=== PATIENT | male | born 1930 | race Caucasian/White ===

== ENCOUNTER 2017-04-26 16:23 | Emergency (ER) | payer MEDICARE ==
[~2017-04-26] VITALS: Ht 185.4 cm; Wt 96.8 kg
[~2017-04-26 16:23] MED LIST: AMIO200T PO; LISI-567 PO; MECL-125 PO; TAMS0.4C29 PO; WARF2.5T82 PO
[2017-04-26 16:28] VITALS: BP 153/83; PULSE 73; RESP 20; O2SAT 94
--- NOTE | 2017-04-26 16:57 | ED.REPORT ---
HPI- Male Date of Service April 26, 2017 ED Provider: Frank Ball MD The patient is an 87 year old male with a medical history including aortic stenosis, vein thrombus, and atrial fibrillation s/p cardioversion and aortic valve replacement on Warfarin who presents to the ED with hematuria onset this morning. The patient's urine has been mostly clear, with drops of blood present after urination. He denies dysuria, fever, cough, abdominal pain, diarrhea, or other symptoms. The patient has experienced hematuria in the past associated with a UTI. Nursing Notes Stated Complaint: BLEEDING FROM PENIS Chief Complaint: Male Abdominal Pain Nursing Notes Reviewed: Yes Allergies: Coded Allergies: quinine (Verified Adverse Reaction, Mild, rash if med taken in excess, ) Scheduled Amiodarone (Amiodarone) 200 Mg Tablet 200 MG PO DAILY Lisinopril (Lisinopril) 20 Mg Tablet 40 MG PO DAILY Tamsulosin ER (Tamsulosin ER) 0.4 Mg Cap.er.24h 0.4 MG PO DAILY Warfarin Sodium (Warfarin Sodium) 2.5 Mg Tablet 2.5 MG PO DAILY Scheduled PRN Meclizine HCl (Meclizine HCl) 25 Mg Tab.chew 25 MG PO DAILY PRN PRN For Dizziness General Time Seen by MD: 16:56 Chief Complaint Blood in urine Hx Obtained From: Patient Arrived By: Walk-in Onset Occurred: 5 - 8 hours ago Symptom Duration: Intermittent Severity: Current: No pain currently Severity: Maximum: No pain Pertinent Negative: Relieved by nothing Recent Healthcare: No recent doctor visit Similar Sx Previous: Yes Past Medical History Past Medical History Aortic stenosis Right cephalic vein thrombus Right basilic vein thrombus Right internal jugular thrombus Atrial fibrillation s/p cardioversion Past Surgical History Aortic valve replacement Smoking History Former Smoker Review of Systems Constitutional: Denies: Fever GI: Denies: Abdominal pain, Diarrhea, Vomiting Male: Reports Hematuria, Denies Dysuria Complete sys rev & neg: except as marked. Respiratory: Denies: Non-productive cough, Shortness of breath Physical Exam Initial Vital Signs Vital Signs (First) Date Time Temp Pulse Resp B/P Pulse Ox O2 Delivery O2 Flow Rate FiO2 04/26/17 16:28 37.4 73 20 153/83 94 Initial VS: Reviewed Head / Eyes: Atraumatic, Normocephalic ENT: Conjunctiva normal, No scleral icterus Neck: Supple, Full range of motion Respiratory: Breath sounds normal, Clear to auscultation, No respiratory distress Cardiovascular: Regular rate & rhythm, Heart sounds normal Abdomen / GI: Soft, Non-tender Skin: Warm, Dry, No cyanosis Neurologic: Alert, Oriented, Nonfocal Psychiatric: Mood/affect normal, Behavior normal, Normal thought content Male Genitourinary: Atraumatic, Inspection NL, Penis NL (Circumcised), No penile discharge, No meatal blood, Testes NL General/Constitutional: Awake, Alert, No acute distress Lower Extremity / Pelvis / MS: Atraumatic, No deformity Mild peripheral edema Interpretation & Diagnostics Lab Results Interpretation Result Diagram: 04/26/17 1708 04/26/17 1708 Test 04/26/17 17:00 04/26/17 17:08 Urine Color Yellow (YELLOW) Urine Appearance Clear (CLEAR,HAZY) Urine pH 8.0 (5.0-8.0) Urine Specific [place] 1.010 (1.003-1.035) Urine Protein 100mg/dL (NEG,TRACE) Urine Glucose (UA) Negativemg/dL (NEGATIVE) Urine Ketones Negativemg/dL (NEGATIVE) Urine Occult Blood Large (NEGATIVE) Urine Nitrite Negative (NEGATIVE) Urine Bilirubin Negative (NEGATIVE) Urine Urobilinogen 1.0mg/dL (NORMAL) Urine Leukocyte Esterase Small (NEGATIVE) Urine RBC 3-10/hpf (0-2) Urine WBC 0-5/hpf (0-5) Urine Epithelial Cells Few/hpf (NONE-MOD) Urine Crystals None seen (NONE SEEN) Urine Bacteria Few/hpf (NONE-FEW) Urine Hyaline Casts None/lpf (NONE) Urine Granular Casts None seen (NONE SEEN) Urine Waxy Casts None seen (NONE SEEN) Urine Red Blood Cell Casts None seen (NONE SEEN) Urine White Blood Cell Casts None seen (NONE SEEN) Urine Mucus Present (None Seen) Urine Trichomonas None seen (NONE SEEN) Urine Yeast None (NONE SEEN) Urinalysis Comment None Urine Culture Reflexed Indicated White Blood Count 5.8th/mm3 (3.8-10.1) Red Blood Count 4.40mil/mm3 (4.40-5.80) Hemoglobin 13.9g/dL (13.8-17.2) Hematocrit 42.7% (41.0-50.0) Mean Corpuscular Volume 97.0fL (81-100) Mean Corpuscular Hemoglobin 31.6pg (27.0-35.0) Mean Corpuscular Hemoglobin Concent 32.6% (32.0-37.0) Red Cell Distribution Width 14.6% (12.3-15.4) Platelet Count 178bil/L (150-400) Neutrophils (%) (Auto) 59.5% (40-74) Lymphocytes (%) (Auto) 28.4% (14-46) Monocytes (%) (Auto) 9.7% (4-12) Eosinophils (%) (Auto) 1.9% (0-5) Basophils (%) (Auto) 0.3% (0-3) Prothrombin Time 19.8sec (8.1-12.5) Prothromb Time International Ratio 1.83ratio Sodium Level 136mEq/L (134-144) Potassium Level 4.4mEq/L (3.5-5.2) Chloride Level 103mEq/L (97-108) Carbon Dioxide Level 20mmol/L (18-29) Blood Urea Nitrogen 18mg/dL (8-27) Creatinine 0.96mg/dL (0.76-1.27) Estimat Glomerular Filtration Rate 79mL/min (>59) Glucose Level 109mg/dL (60-99) Calcium Level 9.0mg/dL (8.5-10.1) Re-Eval/Medical Decision Source of Hx: Old records Re-Evaluation/Progress : Time of Eval: 17:47 Patient Status: Condition improved Re-Evaluation/Progress Note: Discussed with patient lab results, diagnosis, and plan for discharge. Follow-up and return to the ER instructions given. Patient agrees with plan for care and all questions were addressed. Counseled Regarding: Diagnosis, Lab results, Need for follow-up, When/why to return to ED Discharge & Departure Impression: Primary Impression: Gross hematuria Disposition: Home Discharge Condition All VS Reviewed: Yes Condition: Improved Patient Instructions: Hematuria (ED) Additional Instructions: Thank you for entrusting us with your care. Your exam today was reassuring for any serious illness today. No evidence of urinary tract infection. Call the referral urologist on Thursday for a follow-up appointment. You may also call your primary care provider for follow-up as needed. Return to the ER with any new or worsening symptoms. Referrals: Woo Noe MD (PCP) Yaz Bello MD Attestation Portions of this note were transcribed by Lou Arriaga. I, Dr. Ball, personally performed the history, physical exam, and medical decision-making; I reviewed and confirmed the accuracy of the information in the transcribed note. Signed by: Manoj Boothe, 04/26/2017, 18:20 copies to: Yaz Bello MD; Woo Noe MD, Kirk H MD April 26, 2017 16:57 LOU ARRIAGA April 26, 2017 17:04 Frank Ball MD April 26, 2017 16:57 LOU ARRIAGA April 26, 2017 17:04
[2017-04-26 17:14] LABS: APPEARANCE,URINE CLEAR (CLEAR,HAZY); COLOR,URINE YELLOW (YELLOW); OCCULT BLOOD,URINE LARGE (NEGATIVE)
[2017-04-26 17:19] LABS: BASOPHILS % (AUTO) 0.3 % (0-3); EOSINOPHILS % (AUTO) 1.9 % (0-5); MONOCYTES % (AUTO) 9.7 % (4-12); Mean Corpuscular Hemoglobin 31.6 pg (27.0-35.0); NEUTROPHILS % (AUTO) 59.5 % (40-74); Platelet Count 178 bil/L (150-400)
[2017-04-26 17:37] LABS: INR 1.83 ratio
[2017-04-27] MEDS ORDERED: CEPH-512 PO (06:35)
[2017-04-27] MEDS ORDERED: WARF2.5T82 PO (10:59)
[2017-04-27] MEDS ORDERED: LOVA40TA PO (10:59)
[2017-04-27] MEDS ORDERED: CARV3.122 PO (10:59)
== END 2017-04-26 17:59 | disposition home or self-care (01) ==
LOC: SED 16:23
DX: R31.0 Gross hematuria (principal); Z87.891 Personal history of nicotine dependence; Z79.899 Other long term (current) drug therapy; Z88.8 Allergy status to other drugs, medicaments and biological substances

== ENCOUNTER 2017-04-27 04:37 | Emergency (ER) | payer MEDICARE ==
[~2017-04-27] VITALS: Ht 185.4 cm; Wt 96.8 kg
[2017-04-27 04:40] VITALS: BP 195/86; PULSE 63; RESP 18; O2SAT 96
[2017-04-27 04:57] VITALS: BP 179/85
--- NOTE | 2017-04-27 05:19 | ED.REPORT ---
HPI- Male Date of Service April 27, 2017 ED Provider: Moustapha Craig MD Patient is an 87 year old male on warfarin who presents to the ED complaining of hematuria.He reports that after voiding, blood drips out for 3-4 minutes. During the night last night, blood leaked from his penis, covering his clothes and mattress. Associated symptoms include lightheadedness. He denies dysuria, fever, chills, or urinary retention. Patient reports that in the morning, it is difficult for him to start urinating. He was seen last night for the same symptoms. Nursing Notes Stated Complaint: BLOOD IN URINE Chief Complaint: Male Abdominal Pain Nursing Notes Reviewed: Yes Allergies: Coded Allergies: No Known Allergies (Unverified , 04/27/17) Scheduled Amiodarone (Amiodarone) 200 Mg Tablet 200 MG PO DAILY Lisinopril (Lisinopril) 20 Mg Tablet 40 MG PO DAILY Tamsulosin ER (Tamsulosin ER) 0.4 Mg Cap.er.24h 0.4 MG PO DAILY Warfarin Sodium (Warfarin Sodium) 2.5 Mg Tablet 2.5 MG PO DAILY Scheduled PRN Meclizine HCl (Meclizine HCl) 25 Mg Tab.chew 25 MG PO DAILY PRN PRN For Dizziness General Time Seen by MD: 04:54 Chief Complaint Blood in urine Hx Obtained From: Patient Arrived By: Walk-in Onset Occurred: Yesterday Recent Healthcare: Recent doctor visit Similar Sx Previous: Yes Past Medical History Past Medical History Aortic stenosis Right cephalic vein thrombus Right basilic vein thrombus Right internal jugular thrombus Atrial fibrillation s/p cardioversion Reports: Hypertension Past Surgical History Aortic valve replacement Smoking History Former Smoker Social History Other Social History: Local resident Ambulatory Status Independent Review of Systems Constitutional: Denies: Chills, Fever Male: Reports Hematuria, Denies Dysuria, Denies Urination decreased Complete sys rev & neg: except as marked. Neurologic: Reports: Lightheaded Physical Exam Initial Vital Signs Vital Signs (First) Date Time Temp Pulse Resp B/P Pulse Ox O2 Delivery O2 Flow Rate FiO2 04/27/17 04:40 36.8 63 18 195/86 96 Room Air Initial VS: Reviewed, Vital signs abnormal Head / Eyes: Atraumatic, Normocephalic Neck: Full range of motion Cardiovascular: Regular rate & rhythm, Heart sounds normal Abdomen / GI: Soft, Non-tender Skin: Warm, Dry Neurologic: Alert, Oriented, Nonfocal Psychiatric: Mood/affect normal, Behavior normal, Normal thought content Male Genitourinary: Atraumatic exam deferred General/Constitutional: Awake, Alert, Well developed bloody clothes Respiratory / Chest: Breath sounds NL, Breath sounds = bilat, No respiratory distress Re-Eval/Medical Decision Med Decision/Clinical Course 87-year-old male with no significant prostate or urinary tract history presents with gross hematuria. He was evaluated here yesterday for same. Since then he has continued to bleed dark red blood from his penis. Initial evaluation was ordered by me and his care is now being turned over at change of shift Dr. Gloria Burgos. Discharge & Departure Shift Change Sign-Out Patient Care Transferred: Yes Discussed Complaint(s): Yes Transfer of care to Dr. Jaquez at 0600. Impression: Primary Impression: Gross hematuria Referrals: Ward Avila MD (PCP) Care Transferred to: Dr. Jaquez Care Transferred at: 06:00 Scribe Attestation Portions of this note were transcribed by Lionel Aquino. I, Dr. Craig personally performed the history, physical exam and medical decision-making; I reviewed and confirmed the accuracy of the information in the transcribed note. Signed by: Lionel Aquino 04/27/17, 0542 copies to: Ward Avila MD, Howard L MD April 27, 2017 05:19 LIONEL AQUINO April 27, 2017 05:30
[2017-04-27] MEDS ORDERED: 0.9% Sodium Chloride 1,000 ML IV ONE (05:31)
[2017-04-27 06:05] LABS: APPEARANCE,URINE CLOUDY (CLEAR,HAZY); COLOR,URINE YELLOW (YELLOW); OCCULT BLOOD,URINE LARGE (NEGATIVE)
[2017-04-27 06:10] LABS: BASOPHILS % (AUTO) 0.2 % (0-3); EOSINOPHILS % (AUTO) 1.2 % (0-5); MONOCYTES % (AUTO) 6.8 % (4-12); Mean Corpuscular Hemoglobin 31.3 pg (27.0-35.0); Mean Corpuscular Volume 96.8 fL (81-100); NEUTROPHILS % (AUTO) 65.1 % (40-74); Platelet Count 180 bil/L (150-400)
[2017-04-27 06:20] LABS: INR 1.7 ratio
[2017-04-27 06:25] LABS: Magnesium 2.1 mg/dL (1.6-2.6)
[2017-04-27] MEDS ORDERED: CEPH-512 PO (06:35)
[2017-04-27 06:51] VITALS: BP 165/83; PULSE 61; RESP 16; O2SAT 95
[2017-04-27] MEDS ORDERED: WARF2.5T82 PO (10:59)
[2017-04-27] MEDS ORDERED: CARV3.122 PO (10:59)
[2017-04-27] MEDS ORDERED: LOVA40TA PO (10:59)
== END 2017-04-27 06:51 | disposition home or self-care (01) ==
LOC: SED 04:37
DX: R31.0 Gross hematuria (principal); R42 Dizziness and giddiness; N39.0 Urinary tract infection, site not specified; I48.91 Unspecified atrial fibrillation; I10 Essential (primary) hypertension; Z79.01 Long term (current) use of anticoagulants; Z87.891 Personal history of nicotine dependence
CPT/HCPCS: 36415; 80053; 81000; 81002; 83735; 85025; 85610; 87086; 87088; 94799; 96360; 99284; J7030

== ENCOUNTER 2017-04-27 09:16 | Inpatient (IN) | payer MEDICARE ==
[~2017-04-27] VITALS: Ht 185.4 cm; Wt 96.0 kg
[~2017-04-27 09:16] MED LIST changes: +CEPH-512 PO
[2017-04-27] MEDS ORDERED: 0.9% Sodium Chloride 1,000 ML IV ONE ×3 (09:19→11:20)
[2017-04-27 09:20] VITALS: BP 113/59; PULSE 89; RESP 37; O2SAT 89
--- NOTE | 2017-04-27 09:23 | ED.REPORT ---
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 Pt was discharged from the ED 1 hr previously for painless hematuria. Pt reports that he got home and began, "feeling tight all over." He sat down and began experiencing diffuse shaking, weakness, and lower abdominal pain located over his bladder. Medics report that upon arrival he was shaking, cyanotic around the lips, pale, and very chilled. He denies back pain and chest pain. He has trouble breathing chronically but this is more then usual. Pt is DNR/DNI. Nursing Notes Stated Complaint: SHALLOW BREATHING Chief Complaint: Respiratory Distress Nursing Notes Reviewed: Yes Allergies: Coded Allergies: No Known Allergies (Unverified , 04/27/17) Scheduled Carvedilol (Carvedilol) 3.125 Mg Tablet 3.125 MG PO BID Cephalexin (Keflex) 500 Mg Capsule 500 MG PO QID Lisinopril (Lisinopril) 20 Mg Tablet 20 MG PO DAILY Lovastatin (Lovastatin) 40 Mg Tablet 40 MG PO HS Tamsulosin ER (Tamsulosin ER) 0.4 Mg Cap.er.24h 0.8 MG PO DAILY Warfarin Sodium (Warfarin Sodium) 2.5 Mg Tablet 2.5 MG PO Salazar,Mo,We,Fri, Sa Warfarin Sodium (Warfarin Sodium) 2.5 Mg Tablet 1.25 MG PO Tue, Thr General Time Seen by MD: 09:17 Chief Complaint Breathing problem Hx Obtained From: Patient Arrived By: Ambulance Sudden in Onset?: Yes Onset Occurred: Just prior to arrival Symptom Duration: Since onset Location: : Abdomen Quality: Painful Severity: Current: Mild Recent Healthcare: Recent doctor visit Similar Sx Previous: Yes Past Medical History Past Medical History Aortic stenosis Right cephalic vein thrombus Right basilic vein thrombus Right internal jugular thrombus Atrial fibrillation s/p cardioversion DVT Reports: Hypertension Past Surgical History Aortic valve replacement Smoking History Former Smoker Social History Other Social History: Local resident Ambulatory Status Independent Review of Systems cyanotic around the lips Full Review of Systems Constitutional: Reports: Chills Respiratory: Reports: Shortness of breath Cardiovascular: Denies: Chest pain GI: Reports: Abdominal pain Musculoskeletal: Denies: Back pain Neurologic: Reports: Shaking, Weakness, Denies: Change LOC, Dizziness, Headache Complete sys rev & neg: except as marked. Physical Exam Vital Signs Vital Signs Date Time Temp Pulse Resp B/P Pulse Ox O2 Delivery O2 Flow Rate FiO2 04/27/17 10:21 98 21 87/53 93 Simple Mask 6 04/27/17 09:20 39.4 89 37 113/59 89 Room Air reviewed Initial VS: Reviewed General/Constitutional: Awake, Cooperative Distress / Hydration: Positive: Distress moderate Appearance / Presentation: Positive: Pale febrile hypoxic Head / Eyes: Normocephalic, PERRL Neck: Supple, Full range of motion Respiratory / Chest: Atraumatic, Breath sounds NL, Breath sounds = bilat, No respiratory distress Cardiovascular: Heart rate NL, Regular rhythm, Heart sounds NL Abdomen: Soft, Non-tender Bowel Sounds / Distention: Positive: Distention mild Back: No CVA tenderness Upper Extremities Upper Extremity / MS: Full range of motion, No swelling, No deformity Lower Extremity / Pelvis / MS: No edema 2+ post-tibial pulses Skin: Warm, Dry Interpretation & Diagnostics Interpretation & Diagnostics: ANGIOGRAPHY CT IMPRESSION: 1. Small subsegmental pulmonary embolus within the right lower lobe. 2. Right upper lobe nodule; followup is recommended as below. 3. Remote granulomatous disease. 4. Nonobstructing right superior pole nephroliths. 5. Small hiatal hernia. 6. No change in severe T10 compression fracture. 7. Findings discussed with Dr. Jaquez on 04.27.17 at 1012 hrs. Dictated by: Humza Harris M.D. on 04/27/2017 at 10:03 Approved by: Humza Harris M.D. on 04/27/2017 at 10:13 Lab Results Interpretation Result Diagram: 04/27/17 0920 04/27/17 0920 Test 04/27/17 09:20 04/27/17 10:00 White Blood Count 2.0th/mm3 (3.8-10.1) Red Blood Count 4.88mil/mm3 (4.40-5.80) Hemoglobin 15.5g/dL (13.8-17.2) Hematocrit 47.7% (41.0-50.0) Mean Corpuscular Volume 97.7fL (81-100) Mean Corpuscular Hemoglobin 31.8pg (27.0-35.0) Mean Corpuscular Hemoglobin Concent 32.5% (32.0-37.0) Red Cell Distribution Width 14.6% (12.3-15.4) Platelet Count 186bil/L (150-400) Neutrophils (%) (Auto) 78.9% (40-74) Lymphocytes (%) (Auto) 19.1% (14-46) Monocytes (%) (Auto) 1.0% (4-12) Eosinophils (%) (Auto) 1.0% (0-5) Basophils (%) (Auto) 0% (0-3) Prothrombin Time 18.9sec (8.1-12.5) Prothromb Time International Ratio 1.75ratio Sodium Level 140mEq/L (134-144) Potassium Level 4.6mEq/L (3.5-5.2) Chloride Level 101mEq/L (97-108) Carbon Dioxide Level 17mmol/L (18-29) Blood Urea Nitrogen 14mg/dL (8-27) Creatinine 0.95mg/dL (0.76-1.27) Estimat Glomerular Filtration Rate 80mL/min (>59) Glucose Level 120mg/dL (60-99) Calcium Level 8.9mg/dL (8.5-10.1) Magnesium Level 1.8mg/dL (1.6-2.6) Total Bilirubin 1.1mg/dL (0.0-1.2) Aspartate Amino Transf (AST/SGOT) 22U/L (0-50) Alanine Aminotransferase (ALT/SGPT) 14U/L (0-44) Alkaline Phosphatase 117U/L (25-160) Troponin T 0.010ug/L (0.0-0.011) Pro-B-Type Natriuretic Peptide 449.6pg/mL (0-486) Total Protein 7.6g/dL (6.4-8.4) Albumin 4.3g/dL (3.4-5.0) Procalcitonin 0.10ng/mL (0.00-0.08) Urine Color Red (YELLOW) Urine Appearance Cloudy (CLEAR,HAZY) Urine pH 8.0 (5.0-8.0) Urine Specific [place] 1.013 (1.003-1.035) Urine Protein 30mg/dL (NEG,TRACE) Urine Glucose (UA) Negativemg/dL (NEGATIVE) Urine Ketones Negativemg/dL (NEGATIVE) Urine Occult Blood Large (NEGATIVE) Urine Nitrite Positive (NEGATIVE) Urine Bilirubin Negative (NEGATIVE) Urine Urobilinogen Normalmg/dL (NORMAL) Urine Leukocyte Esterase Negative (NEGATIVE) Urine RBC Packed/hpf (0-2) Urine WBC 0-5/hpf (0-5) Urine Epithelial Cells Few/hpf (NONE-MOD) Urine Crystals None seen (NONE SEEN) Urine Bacteria Few/hpf (NONE-FEW) Urine Hyaline Casts None/lpf (NONE) Urine Granular Casts None seen (NONE SEEN) Urine Waxy Casts None seen (NONE SEEN) Urine Red Blood Cell Casts None seen (NONE SEEN) Urine White Blood Cell Casts None seen (NONE SEEN) Urine Mucus None seen (None Seen) Urine Trichomonas None seen (NONE SEEN) Urine Yeast None (NONE SEEN) Urinalysis Comment None Urine Culture Reflexed Indicated ECG Interpretation ECG Interpretation: 1st degree AV block non-specific ST changes Time: 09:26 Interpreted by: ED physician Normal ECG Interpretation: Normal sinus rhythm (rate 91) CT Abd / Pelvis Interpretation IMPRESSION: 1. Cystitis. 2. Multiple urinary bladder diverticula, some of which contain calcifications. 3. Nonobstructing right superior pole nephrolith. 4. Remote granulomatous disease. 5. New small hiatal hernia. 6. Slight increase in size of infrarenal abdominal aortic aneurysm. 7. Normal appendix. 8. No change in severe T10 compression fracture. 9. 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 10. Findings discussed with Dr. Jaquez on 04.27.17 at 1011 hrs. Dictated by: Humza Harris M.D. on 04/27/2017 at 10:13 Approved by: Humza Harris M.D. on 04/27/2017 at 10:18 Study type: Abdominal CT no contrast Interpretation / Wet Read by: Interpret - Radiologist Re-Eval/Medical Decision Med Decision/Clinical Course Patient arrives hypoxic and with other septic parameters. His hypoxia seems disproportionate to his previous presentation a few hours ago. For this reason CT chest abdomen pelvis is obtained, which shows a right lower lobe pulmonary embolism, this is briefly discussed with cardiology who recommends starting and continuing IV heparin. Patient's elevated lactic acidosis low white blood cell count and vital sign abnormalities appear to represent sepsis. IV Zosyn was given for a genitourinary etiology. There is no obvious obstructing stone. He will be admitted. He was placed on IV norepinephrine in order to maintain adequate blood pressure. Time of Eval: 09:50 Re-Evaluation/Progress Note: Pt rechecked. The pt was standing up to urinate, and had an episode of hematuria. He also became extremey weak and needed assistance getting back to the bed. Time of Eval: 10:14 Re-Evaluation/Progress Note: Pt rechecked. He is hypotensive, placed in supine position. Discussion with patient's family. Informed them of right lower lobe PE, aneurysm, and need for admission. Plan to start treating infection with antibiotics. Time of Eval: 10:51 Re-Evaluation/Progress Note: Pt rechecked. Informed family and pt of plan for epinephrin and heparin drip. Pt will be admitted to ICU. Consultation #1: Referral / Consult Name: Humza Harris MD Call Returned at: 10:12 Note: Case discussed with radiology. Dr. Humza Harris confirms a small PE in RLL. Pt also has urinary bladder cystitis. Consultation #2: Referral / Consult Name: Marleny Carias MD Consulted With: Cardiology Call Returned at: 10:39 Material Control Specialist: Agrees with eval, Agrees with plan Note: Case discussed. Consultation #3: Referral / Consult Name: Remy Foss MD Call Returned at: 10:45 Material Control Specialist: Agrees with eval, Agrees with plan Note: Case discussed. Counseled Regarding: Diagnosis, Lab results, Need for admission Discharge & Departure Primary Impression: Pulmonary embolism Pulmonary embolism type: septic Chronicity: unspecified Additional Impressions: Urinary tract infection Urinary tract infection type: site unspecified Hematuria presence: with hematuria Qualified Code: N39.0 - Urinary tract infection, site not specified Cystitis Nephrolithiasis Disposition: ADMITTED TO HOSPITAL Discharge Condition All VS Reviewed: Yes Condition: Stable Referrals: Ward Avila MD (PCP) Crit Care Except Billable Proc Time Spent: 75-104 minutes Services Performed: Patient management by me, Time spent at bedside, Reviewing test results, Reviewing imaging, Discussing patient care, Documentation in record, Time with fam/surrogate Critical Care Notes: See MDM Scribe Attestation Portion of this note were transcribed by Geno Taylor. I, Dr. Jaquez, personally performed the history, physical exam, and medical decision-making: I reviewed and confirmed the accuracy for the information in the transcribed note. Signed by: rajan Raphael, 04/27/17 1200 copies to: Ward Avila MD, Timothy S DO April 27, 2017 09:23 Geno Taylor April 27, 2017 09:36
[2017-04-27 09:36] LABS: BASOPHILS % (AUTO) 0 % (0-3); Mean Corpuscular Hemoglobin 31.8 pg (27.0-35.0); Mean Corpuscular Volume 97.7 fL (81-100); NEUTROPHILS % (AUTO) 78.9 % (40-74); Platelet Count 186 bil/L (150-400)
[2017-04-27 09:50] LABS: INR 1.75 ratio
[2017-04-27 10:07] LABS: TROPONIN T 0.01 ug/L (0.0-0.011)
[2017-04-27] MEDS ORDERED: 0.9% Sodium Chloride 500 ML IV ONE ×2 (10:10→10:20)
[2017-04-27] MEDS: 0.9% Sodium Chloride 1,000 ML IV SCH ×4 (10:10→22:10)
--- NOTE | 2017-04-27 10:14 | DRSVH ---
PROCEDURE: CT ANGIO CHEST PULMONARY EMBOLISM ([id number]) INDICATIONS: hypoxia TECHNIQUE: After the administration of intravenous contrast, 2 mm thick sections acquired from the pulmonary api maico to the posterior costophrenic angles. 3-dimensional maximum intensity projection (MIP) coronal a nd sagittal reformats were then acquired through the thorax. For radiation dose reduction, the follo wing was used: automated exposure control, adjustment of mA and/or kV according to patient size. COMPARISON: [facility], CT, CT ABD PELVIS W CON, 04/27/2017, 9:36. [facility] l, CT, CHEST WITH CONTRAST, 04/18/2012, 12:53. FINDINGS: Image quality: Excellent. Pulmonary arteries: Pulmonary arteries are normal in size. There is a small filling defect seen with in a subsegmental pulmonary artery branch within the right lower lobe superior segment. Lungs and pleura: No evidence of pneumonia, nor edema. Mild apical predominant emphysema. Mild depend ent bilateral upper and lower lobe atelectasis. New ill-defined nodular density within the right uppe r lobe anteriorly measuring 9 mm. Calcified granuloma within the left upper lobe anteriorly. No pleur al effusions or pneumothorax. Central and peripheral airways are patent. Mediastinum: Heart size is normal, without pericardial effusion. There is calcification of the coron jose vasculature. No mediastinal or hilar adenopathy. Thoracic aorta is normal in caliber and enhance ment. Esophagus is normal in caliber. There is a new small hiatal hernia. Bones and chest wall: Median sternotomy. No suspicious bony lesions. There is severe compression of the T10 vertebral body, as before. Mild compression of the T7 and T8 vertebral bodies. Moderate to se [place] thoracic kyphosis. Thyroid gland is within normal limits. No axillary or supraclavicular adenop athy. Abdomen: Visualized portions of the upper abdomen demonstrate small nonobstructing right superior po le nephroliths, splenic granulomata, as well as a 28 mm diameter low-density focus within the right h epatic lobe posteriorly, which is unchanged. IMPRESSION: 1. Small subsegmental pulmonary embolus within the right lower lobe. 2. Right upper lobe nodule; followup is recommended as below. 3. Remote granulomatous disease. 4. Nonobstructing right superior pole nephroliths. 5. Small hiatal hernia. 6. No change in severe T10 compression fracture. 7. Findings discussed with Dr. Jaquez on 04.27.17 at 1012 hrs. Dictated by: Humza Harris M.D. on 04/27/2017 at 10:03 Approved by: Humza Harris M.D. on 04/27/2017 at 10:13
[2017-04-27 10:18] LABS: Magnesium 1.8 mg/dL (1.6-2.6)
--- NOTE | 2017-04-27 10:19 | DRSVH ---
PROCEDURE: CT ABDOMEN AND PELVIS WITH CONTRAST ([id number]) INDICATIONS: hematuria TECHNIQUE: After the administration of intravenous contrast, 5 mm thick sections acquired from the diaphragm to the symphysis. 5 mm coronal and sagittal reformats were acquired. For radiation dose reduction, the following was used: automated exposure control, adjustment of mA and/or kV according to patient angela dubon. COMPARISON: [facility], CT, KUB - CT ([facility]), 02/07/2014, 7:55. FINDINGS: Image quality: Excellent. ABDOMEN: Lung bases: Lung bases are clear. Heart size is normal. Solid organs: Liver and spleen are normal in size. Multiple splenic calcifications are present. Scat tered hypodense hepatic lesions are unchanged. Gallbladder is within normal limits. Biliary system i s non dilated. Pancreas enhances normally. No adrenal nodules. Kidneys demonstrate normal size and enhancement, without hydronephrosis. Nonobstructing 3 mm diameter calculus within the superior pole right kidney. Peritoneum and bowel: A new small hiatal hernia is present. Bowel loops demonstrate normal wall thic kness and caliber. No free fluid or air normal appendix.. Nodes and vessels: No retroperitoneal or mesenteric adenopathy by size criteria. Slight increase in infrarenal abdominal aortic aneurysm, currently measuring 44 mm diameter. The Miscellaneous: No ventral hernias. PELVIS: Genitourinary: The urinary bladder wall is diffusely thickened. Multiple urinary bladder diverticula are present, largest of which is in the right posterior paramedian urinary bladder, measuring 34 mm d iameter. There is a 26 mm diameter diverticulum involving the right posterior urinary bladder, which contains multiple dependent calcifications. Multiple smaller calcifications are present within the ur inary bladder posteriorly. Miscellaneous: No inguinal hernias or adenopathy. Bones: No suspicious bony lesions. No change in severe T10 compression fracture. 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 No change in mild L5 wedging. A No acute vertebral body co mpression fractures. IMPRESSION: 1. Cystitis. 2. Multiple urinary bladder diverticula, some of which contain calcifications. 3. Nonobstructing right superior pole nephrolith. 4. Remote granulomatous disease. 5. New small hiatal hernia. 6. Slight increase in size of infrarenal abdominal aortic aneurysm. 7. Normal appendix. 8. No change in severe T10 compression fracture. 9. 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 10. Findings discussed with Dr. Jaquez on 17 at 1011 hrs. Dictated by: Humza Harris M.D. on 04/27/2017 at 10:13 Approved by: Humza Harris M.D. on 04/27/2017 at 10:18
[2017-04-27 10:21] VITALS: BP 87/53; PULSE 98; RESP 21; O2SAT 93
[2017-04-27] MEDS ORDERED: Piperacillin-Tazo 3.375 Gm Inj 3.375 GM in Dextrose 5% Minibag Plus 50 ML IV ONE (10:25)
[2017-04-27] MEDS ORDERED: Heparin 25K Unit/500mL 0.45 NS 25,000 UNIT in IV Premix 1 EACH IV SCH ×2 (10:40→15:50)
[2017-04-27] MEDS ORDERED: Sodium Chloride LOK Flush 10 mL Syringe IVFLUSH PRN ×4 (10:40→15:20)
[2017-04-27] MEDS ORDERED: Heparin 5,000 Unit/mL Inj IVPUSH PRN (10:40)
[2017-04-27] MEDS ORDERED: Norepineph 8,000 mCg/250 mL NS 8,000 MCG in IV Premix 1 EACH IV SCH (10:40)
[2017-04-27] MEDS ORDERED: LOVA40TA PO (10:59)
[2017-04-27] MEDS ORDERED: WARF2.5T82 PO (10:59)
[2017-04-27] MEDS ORDERED: CARV3.122 PO (10:59)
[2017-04-27] MEDS ORDERED: Heparin 5,000 Unit/mL Inj IVPUSH ONE (11:00)
[2017-04-27] MEDS ORDERED: Norepineph 8,000 mCg/250 mL NS 8,000 MCG in IV Premix 1 EACH IV PRN (11:05)
[2017-04-27] MEDS ORDERED: Ondansetron 2 mg/mL 2 mL Inj IVPUSH PRN (11:05)
[2017-04-27 11:15] VITALS: BP 94/58; PULSE 83; RESP 30; O2SAT 99
[2017-04-27 11:40] LABS: APPEARANCE,URINE CLOUDY (CLEAR,HAZY); COLOR,URINE RED (YELLOW)
[2017-04-27 11:41] LABS: OCCULT BLOOD,URINE LARGE (NEGATIVE); UROBILINOGEN,URINE NORMAL (NORMAL)
[2017-04-27] MEDS ORDERED: fentaNYL-PF 50 mCg/mL 2 mL Inj IVPUSH ONE (12:05)
--- NOTE | 2017-04-27 12:10 | ABG ---
DateTimeAnalyzed 12:04:00 -_ pH ____7.470 - 7.350 7.450 pCO2 ___24.6__ -mmHg 35.0 45.0 pO2 ___67.5__ -mmHg 69.0 116 HCO3- ___17.7__ -mmol/L 22.0 26.0 ABE ___-4.2__ -mmol/L -2.0 2.0 tHb ___12.0__ -g/dL O2Hb ___93.3__ -% COHb ____1.3__ -% MetHb ____1.2__ -% sO2 ___95.7__ -% 25.0 FIO2 ___50.0__ -% Drawn By jmw - Date/Time Notified____ 12:09:00 -_ Liter_Flow ____7.0__ -L/min Oxygen Device 1 __OXYMASK - Notified By jmw - Notified Whom DR YANCHUK - B 758 -mmHg tO2 ___15.7__ -Vol% Cristiano test _Positive -
[2017-04-27 12:15] VITALS: BP 91/48; PULSE 88; RESP 20; O2SAT 97
--- NOTE | 2017-04-27 12:59 | NUR ---
Pt arrived in CCU at approx 1215hrs from ER Pt was hypotensive on arrival with sys BP 76, but this came up quickly and he has been in the 90's systolic since then. Norepi is infusing at .05mcg/kg/hr. NS wide open this is the 3rd liter. Pt also has heparin running on DVT protocol. Pt has oxymask at 7l and sats 100%. This has since been dropped to 5l and sats are 97%. He denies shortness of breath or cough. Pt used the urinal prior to starting CVL placement for 100cc of bloody red urine. He had trouble starting the flow of urine and also difficulty voiding, starting and stopping. Approx 20 mins later he complained he had a full bladder and MD ordered gautam placed. He did have blood coming out of his urethra approx 2cc when I cleaned the area and after gautam was placed without difficulty or resisitance, he drained 1000cc of clear urine. He stated he felt much better.
--- NOTE | 2017-04-27 13:43 | DRSVH ---
PROCEDURE: X-RAY CHEST ONE VIEW, PORTABLE ([id number]) INDICATIONS: CENTRAL LINE PLACEMENT TECHNIQUE: One view of the chest was acquired. COMPARISON: [facility], CR, XR CHEST 2VW, 10/10/2016, 8:44. FINDINGS: Surgical changes and devices: Median sternotomy. A catheter projects over the right supraclavicular r egion, but the tip is directed superiorly beyond the level of the film. Lungs and pleura: No pleural effusions or pneumothorax. Mild bibasilar airspace opacity. Mediastinum: Mediastinal contours appear normal. Heart size is normal. Bones and chest wall: No suspicious bony lesions. Overlying soft tissues appear unremarkable. IMPRESSION: 1. Catheter within the right supraclavicular region, tip of which is directed superiorly, presumably within the right internal jugular vein. 2. Bibasilar atelectasis versus pneumonia. Dictated by: Humza Harris M.D. on 04/27/2017 at 13:40 Approved by: Humza Harris M.D. on 04/27/2017 at 13:41
--- NOTE | 2017-04-27 13:53 | DRSVH ---
PROCEDURE: Central line placement under fluoroscopic guidance INDICATIONS: hypotensive COMPARISON: None. FINDINGS: Central catheter was placed by referring clinical staff from the right side. IMPRESSION: Tip of central line lies within the lower SVC. Dictated by: Humza Harris M.D. on 04/27/2017 at 13:50 Approved by: Humza Harris M.D. on 04/27/2017 at 13:51
--- NOTE | 2017-04-27 14:42 | PCM.HPSURG ---
Subjective Date of Service: April 27, 2017 Referring Provider: Admitting Physician: Remy Foss MD Primary Care Physician: Ward Avila MD Attending Physician: Reym Foss MD Chief Complaint Consult for gross hematuria History of Present Illness Mr Gu is an 87 M admitted with UTI. He states his problems began about 3 days ago when he started feeling unwell. Then he noticed it was difficult to urinate. He experienced gross hematuria this morning. He states this has happened to him in the past, but at present, he notes it was years ago. UA appears + for UTI. CT scan demonstrates multiple small bladder diverticuli. Allergy Allergies: Coded Allergies: No Known Allergies (Unverified , 04/27/17) Social History Hx Alcohol Use: No Hx Substance Use: No Hx Tobacco Use: Yes PMH HEENT History History of ENT Problems?: Yes HEENT History: Positive for:: Cataracts (surgery completed now glasses for reading only) Cardiovascular History History of Heart Problems?: Yes Cardiovascular History: Positive for:: Cardiac Surgery (history of valve replacement and single vessel CABG) Hypertension Denies:: Congestive Heart Failure Respiratory History of Respiratory Problem: No Respiratory History: Denies:: Tuberculosis Neurological History Hx Neurologic Problems?: No Gastrointestinal History HX of GI Problems?: Yes Gastrointestinal History: Positive for:: Hiatal Hernia Genitourinary History Hx of Gu Problems?: Yes Other Pertinent History?: Pt states some trouble urinating, with poor stream and difficulty starting urination Female/Male History Reproductive History Male: Positive for: Prostate Problems Psycho Social History Hx of Psycho/Social Problems?: No Other History Diabetes: No Social History Hx Alcohol Use: NoHx Substance Use: NoHx Tobacco Use: Yes Smoking Status: Former Smoker H&P Surgical Exam Exam General: Alert, Cooperative Abdomen: Benign, Soft, Non-tender Extremities: Warm Neuro: Cranial Nerves 2-12 nl Catheters: Urethral 2 Way Gautam ([address], draining totally clear yellow urine) Assessment & Plan Assessment History gross hematuria, in the setting of suspected UTI VTE Mechanical Devices: Intermittant Pneumatic CD Plan: Given his likely UTI, gross hematuria isn't unexpected. His CT scan demonstrates multiple bladder diverticuli, c/w likely high pressure voiding from obstructive prostate. Given the resolved hematuria at present, I do not have recommendations for further intervention. D/C gautam when pt feels ready and per primary service. He is welcome to f/u with me as outpatient, and I will have my office make arrangements when they open again tomorrow. Thank you for your kind consultation on this very pleasant man. Please, do not hesitate to page me (or tomorrow reach me by office [phone]) with questions/ concerns, or if patient's condition changes. Yaz Bello MD April 27, 2017 14:42
--- NOTE | 2017-04-27 15:15 | PCM.HPMED ---
Subjective Date of Service April 27, 2017 Primary Provider: Admitting Physician: Remy Foss MD Primary Care Physician: Ward Avila MD Attending Physician: Remy Foss MD Chief Complaint: Hematuria History of Present Illness: 87-year-old male with a history of CAD and single-vessel CABG, aortic stenosis with valve replacement, atrial flutter on Coumadin, bladder diverticula, and multiple UTIs with hematuria presents to the emergency department due to ongoing hematuria, chills, rigors, general malaise. Patient presented initially on 528 due to hematuria but lacks signs of systemic infection. Urine at that time was negative for nitrite, small amount of leukocyte esterase, a few bacteria. Patient was sent home and [place] able [place] leave the [place] he began having a "tightening of my entire body," with onset of chills and rigors. Patient also endorses urinary frequency, urgency, dysuria, and gross hematuria. Patient denies fever, trouble starting or stopping urination, diarrhea, cough, chest pain, shortness of breath, or abdominal pain. Patient states that has known regular UTIs that presented with hematuria. Emergency department patient underwent CT angiogram of the chest which showed a small subsegmental PE in the right lower lobe and a nonobstructing right superior pole nephrolith. On CT of the abdomen as noted the patient has cystitis as well as multiple urinary bladder diverticula some calcifications. Patient's blood pressures were found to go from 113/59-87/53, patient was febrile to 39.4, respirations were in the mid to upper 30s. Patient was started on levophed through a peripheral line and bolused multiple liters. Once he reached for patient had an IJ central line placed, and the report is in the chart. Patient's white count dropped from 5.8 yesterday to 2.0 today with pain moderate left shift. Otherwise his CBC was normal. Patient's CMP was abnormal for low bicarbonate. Otherwise unremarkable. Lactic S was elevated at 4.1 and has trended down with the menstruation fluids. Procalcitonin is initially 0.1. Repeat urine showed joao bloody urine was positive for nitrite but negative for leukocyte esterase. Review of Systems: Complete review of systems performed. Positives and negatives per history of present illness; all other systems are reviewed and are negative. Allergies Coded Allergies: No Known Allergies (Unverified , 04/27/17) Home Medications Carvedilol (Carvedilol) 3.125 Mg Tablet 3.125 MG PO BID Cephalexin (Keflex) 500 Mg Capsule 500 MG PO QID Lisinopril (Lisinopril) 20 Mg Tablet 20 MG PO DAILY Lovastatin (Lovastatin) 40 Mg Tablet 40 MG PO HS Tamsulosin ER (Tamsulosin ER) 0.4 Mg Cap.er.24h 0.8 MG PO DAILY Warfarin Sodium (Warfarin Sodium) 2.5 Mg Tablet 2.5 MG PO Salazar,Mo,We,Fri, Sa Warfarin Sodium (Warfarin Sodium) 2.5 Mg Tablet 1.25 MG PO Tue, Thr PMH Aortic stenosis Right cephalic vein thrombus Right basilic vein thrombus Right internal jugular thrombus Atrial fibrillation s/p cardioversion DVT Reports: Hypertension Surgical History Aortic valve replacement Family History Denies family history of heart disease, diabetes, stroke. Social History Hx Alcohol Use: No Hx Substance Use: No Hx Tobacco Use: Yes Smoking Status: Former Smoker (40 years) Exam Vital Signs Vital Sign - Last Date Time Temp Pulse Resp B/P Pulse Ox O2 Delivery O2 Flow Rate FiO2 04/27/17 12:15 38.3 88 20 91/48 97 OxyMask 7.00 Exam General: Patient sleepy but arousable and conversive; no acute distress HEENT: mucous membranes moist, no JVD, IJ central line placed on the right; PERRLA Lymph: No lymphadenopathy Cardiac: Regular rate and rhythm with infrequent PVCs; no murmur Respiratory: CTA bilaterally Abdomen: Mild tenderness on the right lower quadrant otherwise benign; positive bowel sounds; nondistended; obese Extremities: Mild edema in the lower extremities bilaterally Skin: No rashes Vascular: Pulses palpated all 4 strategies Psych: Appropriate mood and affect Neuro: Grossly intact; CN II through XII intact. : Blood at the urethral meatus; Bro in place Lab and Diagnostics Result Diagram: 04/27/1791904/27/17919 X-Rays, CTs and MRIs CT angiogram of the chest 1. Small subsegmental pulmonary embolus within the right lower lobe. 2. Right upper lobe nodule; followup is recommended as below. 3. Remote granulomatous disease. 4. Nonobstructing right superior pole nephroliths. 5. Small hiatal hernia. 6. No change in severe T10 compression fracture. 7. Findings discussed with Dr. Jaquez on 04.27.17 at 1012 hrs. Dictated by: Humza Harris M.D. on 04/27/2017 at 10:[address] 1. Cystitis. 2. Multiple urinary bladder diverticula, some of which contain calcifications. 3. Nonobstructing right superior pole nephrolith. 4. Remote granulomatous disease. 5. New small hiatal hernia. 6. Slight increase in size of infrarenal abdominal aortic aneurysm. 7. Normal appendix. 8. No change in severe T10 compression fracture. 9. 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 10. Findings discussed with Dr. Jaquez on 04.27.17 at 1011 hrs. Dictated by: Humza Harris M.D. on 04/27/2017 at 10:13 Chest x-ray 1. Catheter within the right supraclavicular region, tip of which is directed superiorly, presumably within the right internal jugular vein. 2. Bibasilar atelectasis versus pneumonia. Dictated by: Humza Harris M.D. on 04/27/2017 at 13:40 Assessment & Plan 87-year-old male history of single CABG, aortic valve replacement, and A. fib on Coumadin who initially presented with hematuria and no signs of infection presented to the emergency department this morning with measured fever, chills, and rigors and found to be in sepsis with shock. Patient has central line placed and is currently on pressure support with Levophed and multiple boluses of NS. Patient is tired but awake and conversive. Septic shock with elevated lactate; present admission; ongoing -Patient presents with a leukopenia, fever, and tachypnea; presumably secondary to UTI -Currently on pressure support through central line receiving boluses -Lactic acid trending and resolving; initial was 4.1 -MRSA screen pending -See below for problems -Recheck CBC and CMP, and lactic. Acute hypoxic respiratory failure; present on admission; ongoing -Does not use home O2; on 7L satting mid 90's -Defer to ICU team today Complicated UTI with hemorrhagic cystitis; present admission; ongoing -Patient presents with gross hematuria and CT evidence of cystitis with urinary bladder diverticula -When using urinal patient has joao bloody urine, but after Bro placement urine is clear -Started on Zosyn -Blood cultures and urine cultures pending -Urology consulted; appreciated recommendations -Negative procal Chronic A. fib on Coumadin with subtherapeutic INR; present admission; ongoing -Appears that he is in normal sinus rhythm on auscultation -Patient presents with an INR of 1.83 and free blood on urination -Continue anticoagulation as bleeding appears stopped and H&H are stable; ICU team to add Heparin until therapeutic -Cardiology was consulted from the ED but is not needed at this time Hyperglycemia; present admission; ongoing -On admit glucose is 120 -Check A1c -Start on low correctional; consider starting Lantus Chronic diastolic heart failure with aortic valve replacement; present admission ; stable -Last echo in December/2016 revealed an ejection fraction greater than 50% with relaxation abnormality in the left ventricle, severely dilated left atrium -Patient also has history of aortic stenosis with a bioprosthetic aortic valve -Hold carvedilol and lisinopril -Heparin until therapeutic on warfarin Very mild respiratory alkalosis; present on admission; ongoing -Tachypneic with RR 20-30 and pH 7.47 -Receiving fluids -ICU managing 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 Expected length of stay is greater than 2 minutes. Pain Evaluation: Adequate Pain Control VTE Prophylaxis Indicated: CCU Admission VTE Prophylaxis: Other (on warfarin and actively bleeding) VTE Mechanical Devices: Intermittant Pneumatic CD Resuscitation Status: DNR/DNI:Do Not Resuscitate/Intubate Attending Statement The patient was seen and examined together with Dr. Roman on 04/27/2017 and I agree with the history, exam and plan as outlined in the note above. . copies to: Ward Avila MD, Michael R DO April 27, 2017 15:15 Remy Foss MD April 27, 2017 16:44
[2017-04-27 15:18] VITALS: BP 86/51; PULSE 64; RESP 26; O2SAT 94
[2017-04-27 15:39] LABS: APPEARANCE,URINE HAZY (CLEAR,HAZY); COLOR,URINE YELLOW (YELLOW); PH,URINE 7.5 (5.0-8.0)
[2017-04-27 15:40] LABS: OCCULT BLOOD,URINE MODERATE (NEGATIVE); UROBILINOGEN,URINE NORMAL (NORMAL)
--- NOTE | 2017-04-27 15:40 | PCM.CHPMED ---
Subjective Date of Service: April 27, 2017 Provider requesting consult: Remy Rey MD Primary Physician: Admitting Physician: Remy Rey MD Primary Care Physician: Ward Avila MD Attending Physician: Remy Rey MD Chief Complaint: Chief Complaint: CRITICAL CARE CONSULTATION REQUESTED BY DR. REY FOR SEPTIC SHOCK History of Present Illness: Yasir Gu is an 87 year old man with past medical history significant for coronary artery disease status post CABG 1 vessel, aortic stenosis status post bypass and valve replacement, superficial vein thrombosis, and atrial fibrillation on Coumadin who presented to the [facility] emergency department due to hematuria. Patient has had 3 ER visits over the last 3 days due to hematuria and presumed cystitis. Patient was seen in the ED earlier this morning again for painless hematuria return shortly due to respiratory distress. Patient's called 911 as he was having trouble breathing. Patient notes he was having fevers and chills at home and diffuse shaking, weakness and pain in the superpubic area. He noted that he was having trouble urinating and does not able to void. Per EMS report the patient was shaking, cyanotic, pale and cold to the touch on their arrival. Patient denies any back pain, he denies any chest pain. He states that he had one prior episode hematuria for which he was treated with antibiotics which quickly resolved. The patient denies cough. In emergency department the patient's blood pressure was noted to be 87/53, heart rate was noted to be in the low 100s, temperature is noted to be 39 4 with oxygen saturation of 89% on room air. CT of his abdomen revealed cystitis , nonobstructing nephrolith. CT angiogram chest revealed a small subsegmental pulmonary embolus of the right lower lobe. Patient was started on heparin drip. He was given 3 L of normal saline and was minimally responsive. He was started on norepinephrine for blood pressure support through a peripheral line while central access was obtained. He was started on Zosyn for cystitis and septic shock. Review of Systems: A comprehensive review of systems was conducted with the patient and found to be negative except as above in the History of Present Illness. PMH Past Medical History Aortic stenosis CAD status post CABG Right cephalic vein thrombus Right basilic vein thrombus Right internal jugular thrombus Atrial fibrillation s/p cardioversion DVT Hypertension Surgical History Aortic valve replacement CABG x one-vessel 5 years ago Home Medications Scheduled Carvedilol (Carvedilol) 3.125 Mg Tablet 3.125 MG PO BID Cephalexin (Keflex) 500 Mg Capsule 500 MG PO QID Lisinopril (Lisinopril) 20 Mg Tablet 20 MG PO DAILY Lovastatin (Lovastatin) 40 Mg Tablet 40 MG PO HS Tamsulosin ER (Tamsulosin ER) 0.4 Mg Cap.er.24h 0.8 MG PO DAILY Warfarin Sodium (Warfarin Sodium) 2.5 Mg Tablet 2.5 MG PO Salazar,Mo,We,Fri, Sa Warfarin Sodium (Warfarin Sodium) 2.5 Mg Tablet 1.25 MG PO Tue, Thr Allergies: Coded Allergies: No Known Allergies (Unverified , 04/27/17) Family History Family History Patient denies any family history of DVTs. Social History Hx Alcohol Use: NoHx Substance Use: NoHx Tobacco Use: Yes Smoking Status: Former Smoker Exam Vital Signs Vital Sign - Last Date Time Temp Pulse Resp B/P Pulse Ox O2 Delivery O2 Flow Rate FiO2 04/27/17 12:15 38.3 88 20 91/48 97 OxyMask 7.00 Additional Information: General: In moderate acute distress, frail elderly man, appropriately interactive HEENT: Normocephalic, atraumatic. External ears without defect. Pupils equal, round, and reactive to light and accommodation. Anicteric sclerae, moist conjunctivae, and no lid lag. Oropharynx free of erythema and cobble stoning with dry mucosa. Neck: Supple with full range of motion. No jugular venous distension. No lymphadenopathy or thyromegaly. Cardiovascular: Regular rate and irregular rhythm with no murmurs, rubs, or gallops appreciated. Midline surgical sternal scar. Pulmonary: Clear to auscultation bilaterally with no crackles, wheezes, or rhonchi. Normal respiratory effort with no use of accessory muscles. Abdomen: Bowel tones present. Soft, nontender, nondistended. Obese. No hepatosplenomegaly or masses appreciated. Extremities: No clubbing, cyanosis, edema, or lymphadenopathy appreciated. Skin: Normal temperature, turgor, and texture; no rash, ulcers, or subcutaneous nodules appreciated. Neurological: Cranial nerves grossly intact. Normal muscle strength, tone, and bulk. Reflexes, coordination, and sensory function within normal limits. No known gait impairment. Psychiatric: Normal mood and affect. Alert and oriented to person, place, and time. : Blood coming out of the urethra. However, after catheterization urine appeared clear and yellow. Lab and Diagnostics Result Diagram: 04/27/1791904/27/17919 X-Rays, CTs and MRIs CT ABDOMEN AND PELVIS WITH CONTRAST IMPRESSION: 1. Cystitis. 2. Multiple urinary bladder diverticula, some of which contain calcifications. 3. Nonobstructing right superior pole nephrolith. 4. Remote granulomatous disease. 5. New small hiatal hernia. 6. Slight increase in size of infrarenal abdominal aortic aneurysm. 7. Normal appendix. 8. No change in severe T10 compression fracture. 9. 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 10. Findings discussed with Dr. Jaquez on 04.27.17 at 1011 hrs. Dictated by: Humza Harris M.D. on 04/27/2017 at 10:13 CT ANGIO CHEST PULMONARY EMBOLISM IMPRESSION: 1. Small subsegmental pulmonary embolus within the right lower lobe. 2. Right upper lobe nodule; followup is recommended as below. 3. Remote granulomatous disease. 4. Nonobstructing right superior pole nephroliths. 5. Small hiatal hernia. 6. No change in severe T10 compression fracture. 7. Findings discussed with Dr. Jaquez on 04.27.17 at 1012 hrs. Dictated by: Humza Harris M.D. on 04/27/2017 at 10:03 Additional Diagnostics: ABG on room air DateTimeAnalyzed 12:04:00 -_ pH ____7.470 - 7.350 7.450 pCO2 ___24.6__ -mmHg 35.0 45.0 pO2 ___67.5__ -mmHg 69.0 116 HCO3- ___17.7__ -mmol/L 22.0 26.0 Assessment & Plan Assessment Yasir Gu is an 87 year old man with past medical history significant for coronary artery disease status post CABG 1 vessel, aortic stenosis status post bypass and valve replacement, superficial vein thrombosis, and atrial fibrillation on Coumadin who presented to the [facility] emergency department due to hematuria. Septic shock secondary to cystitis with bladder diverticula -Criteria: WBC 2.0, T 39.4, RR 37 with lactate of 4. Questionable pneumonia. -Unlikely that patient has a vesicocolonic fistula as there is no air in the Bro -Aggressive fluid resuscitation. Patient received 3 L in the ED, will give 2 more and reassess. -Lactic acid trending down will continue to check Q2 until <2 -Urine legionella, urine strep pneumo, blood cultures, respiratory viral PCR, urine cultures. Repeat procalcitonin. -Zosyn until antibiotics can be tailored. -NE for pressure support as needed. Hypoxemic respiratory failure, acute -Noted to have emphysema, based on PFTs from 2016, with severe diffusion capacity reduction and obvious emphysema on CT -May be exacerbated by sepsis or alternative possibly secondary to PNA, although CT is not convincing of severe PNA -Continue to monitor, continue with O2 supplementation with O2 goal between 88 and 92% Respiratory alkalosis secondary to hyperventilation secondary to sepsis with primary HAGMA secondary to lactic acidosis -Continue to monitor Small subsegmental PE -Heparin drip, will be switch to cardiac protocol Hematuria, likely secondary to cystitis -Urology consulted, appreciate time and expertise -Patient does have a noted granuloma, consider TB on the differential if no other etiology can ascertained Aortic stenosis s/p biomechanical valve replacement -Subtherapeutic -Heparin drip for bridging, will restart warfarin Atrial fibrillation on Coumadin -Subtherapeutic -Heparin drip for bridging, will restart warfarin CAD s/p CABG Likely undiagnosed MARCELLA -Recommend outpatient sleep study Hypertension, currently hypotensive Thank you for allowing us to participate in the care of this patient, we will follow along with you. Problems: VTE Mechanical Devices: Intermittant Pneumatic CD Time spent Critical care time spent on this patient was 1.5 hours. Attending Statement The patient was seen and examined together with Dr. Arredondo on 04/27/2017 and I agree with the history, exam and plan as outlined in the note above. Lynne Arredondo DO April 27, 2017 13:50 Hubert Morales MD May 11, 2017 11:19
--- NOTE | 2017-04-27 16:18 | PCM.PROC ---
Procedure Note Date of Service: April 27, 2017 Pre Procedure Diagnosis: Septic Shock Post Procedure Diagnosis: Septic Shock Procedure: Internal Jugular Vein central venous access Provider and Certified Athletic Trainer: Dr. Woo Jones, assisted by Dr. Lynne Morales was in the room as preceptor Indication for Procedure: Septic Shock with hypotension requiring central access for pressor therapy Findings: Patient with shallow readily identifiable internal jugular vein by US. Procedural Analgesia: Single dose of Fentanyl 25 mcg pre procedure Procedure Details: A time-out was completed verifying correct patient, procedure, site, positioning , and special equipment if applicable. The patient was placed in a dependent position appropriate for central line placement based on the vein to be cannulated. The patients right neck and shoulder region was prepped and draped in sterile fashion. 1% Lidocaine was used to anesthetize the surrounding skin area. A triple lumen 9-Bulgarian Cordis catheter was introduced into the the internal jugular vein using the Seldinger technique under ultrasound guidance. After appropriate dilatation the catheter was threaded smoothly over the guide wire and appropriate blood return was obtained. Each lumen of the catheter was evacuated of air and flushed with sterile saline. Post procedural CXR to verify placement revealed that the catheter tip had curled upwards out of appropriate position. Dr. Lynne Arredondo then completed a correctional procedure as outlined in her procedure note. Following correctional procedure the catheter tip was verified to be in the correct position by follow up CXR. Post Procedure Plan: Standard dressing and catheter management procedure. Attending Statement I was immediately available throughout the entire procedure and able to assist as needed. I agree with the description of the procedure above. . Woo Jones DO April 27, 2017 16:18 Remy Foss MD April 27, 2017 16:53
--- NOTE | 2017-04-27 16:40 | PCM.CONPHA ---
Subjective Date of Service: April 27, 2017 Hematuria Reason for Pharmacy Consult: Anticoagulation Management Objective Vital Signs Date Time Temp Pulse Resp B/P Pulse Ox O2 Delivery O2 Flow Rate FiO2 04/27/17 15:18 Supplement Oxygen 04/27/17 15:18 37.8 64 26 86/51 94 OxyMask 7.00 04/27/17 12:15 38.3 88 20 91/48 97 OxyMask 7.00 04/27/17 12:15 Supplement Oxygen 04/27/17 11:15 83 30 94/58 99 Simple Mask 6 04/27/17 10:21 98 21 87/53 93 Simple Mask 6 04/27/17 09:20 39.4 89 37 113/59 89 Room Air Weight (Kilograms): 96.300 Height (Feet): 6 Height (Inches): 1.00 Test 04/27/17 09:20 04/27/17 10:00 04/27/17 14:30 04/27/17 15:00 White Blood Count 2.0th/mm3 (3.8-10.1) Red Blood Count 4.88mil/mm3 (4.40-5.80) Hemoglobin 15.5g/dL (13.8-17.2) Hematocrit 47.7% (41.0-50.0) Mean Corpuscular Volume 97.7fL (81-100) Mean Corpuscular Hemoglobin 31.8pg (27.0-35.0) Mean Corpuscular Hemoglobin Concent 32.5% (32.0-37.0) Red Cell Distribution Width 14.6% (12.3-15.4) Platelet Count 186bil/L (150-400) Neutrophils (%) (Auto) 78.9% (40-74) Lymphocytes (%) (Auto) 19.1% (14-46) Monocytes (%) (Auto) 1.0% (4-12) Eosinophils (%) (Auto) 1.0% (0-5) Basophils (%) (Auto) 0% (0-3) Prothrombin Time 18.9sec (8.1-12.5) Prothromb Time International Ratio 1.75ratio Sodium Level 140mEq/L (134-144) Potassium Level 4.6mEq/L (3.5-5.2) Chloride Level 101mEq/L (97-108) Carbon Dioxide Level 17mmol/L (18-29) Blood Urea Nitrogen 14mg/dL (8-27) Creatinine 0.95mg/dL (0.76-1.27) Estimat Glomerular Filtration Rate 80mL/min (>59) Glucose Level 120mg/dL (60-99) Calcium Level 8.9mg/dL (8.5-10.1) Magnesium Level 1.8mg/dL (1.6-2.6) Total Bilirubin 1.1mg/dL (0.0-1.2) Aspartate Amino Transf (AST/SGOT) 22U/L (0-50) Alanine Aminotransferase (ALT/SGPT) 14U/L (0-44) Alkaline Phosphatase 117U/L (25-160) Troponin T 0.010ug/L (0.0-0.011) Pro-B-Type Natriuretic Peptide 449.6pg/mL (0-486) Total Protein 7.6g/dL (6.4-8.4) Albumin 4.3g/dL (3.4-5.0) Procalcitonin 0.10ng/mL (0.00-0.08) Urine Culture Reflexed Indicated Urine Color Yellow (YELLOW) Urine Appearance Hazy (CLEAR,HAZY) Urine pH 7.5 (5.0-8.0) Urine Specific [place] 1.010 (1.003-1.035) Urine Protein Negativemg/dL (NEG,TRACE) Urine Glucose (UA) Negativemg/dL (NEGATIVE) Urine Ketones Negativemg/dL (NEGATIVE) Urine Occult Blood Moderate (NEGATIVE) Urine Nitrite Positive (NEGATIVE) Urine Bilirubin Negative (NEGATIVE) Urine Urobilinogen Normalmg/dL (NORMAL) Urine Leukocyte Esterase Small (NEGATIVE) Urine RBC 3-10/hpf (0-2) Urine WBC 0-5/hpf (0-5) Urine Epithelial Cells Few/hpf (NONE-MOD) Urine Crystals None seen (NONE SEEN) Urine Bacteria Few/hpf (NONE-FEW) Urine Hyaline Casts None/lpf (NONE) Urine Granular Casts None seen (NONE SEEN) Urine Waxy Casts None seen (NONE SEEN) Urine Red Blood Cell Casts None seen (NONE SEEN) Urine White Blood Cell Casts None seen (NONE SEEN) Urine Mucus None seen (None Seen) Urine Trichomonas None seen (NONE SEEN) Urine Yeast None (NONE SEEN) Urinalysis Comment None Hold Purple Top Tube Received (Received) Lactic Acid Level 1.1mmol/L (0.4-2.0) Hold [place] Top Tube Received (Received) Test 04/27/17 16:12 Assessment/Plan Assessment/Plan WARFARIN MANAGEMENT A\ 87YO m ADMITTED FOR SEPSIS, UTI, HEMATURIA. History of AFib and aortic replacement goal INR 2-3 Current INR=1.75, HCT=47.7, TJC=020 Bridging with Heparin drip until INR is therapeutic. Also receiving Zosyn IV which can increase bleed risk. P\ Will continue home Warfarin 2.5mg po x1 tonight and INR ordered with AM labs. Pharmacy will continue to monitor and adjust Warfarin as necessary. Kris Stinson [facility] April 27, 2017 16:40
--- NOTE | 2017-04-27 16:51 | PCM.PROC ---
Procedure Note Date of Service: April 27, 2017 Pre Procedure Diagnosis: Septic shock Post Procedure Diagnosis: Septic shock Procedure: Over the wire catheter replacement for central venous access in the right internal jugular Provider and Machine Molder: Resident: Lynne Arredondo Attending, available at bedside: Hubert Morales Indication for Procedure: Anomalous placement of Cook 7 [place] Zealander triple lumen catheter. Procedure Details: The existing triple-lumen catheter was visualized under fluoroscopy with the tip when he superiorly. The catheter was retracted out of the skin until it pointed inferiorly towards the SVC. The patient was then draped with a sterile section of the catheter visualized in the fenestrated drape. The skin was prepped with chlorhexidine solution x2. The catheter was cut with sterile scissors. A guidewire was used cannulate the triple-lumen catheter with the guidewire visualized under fluoroscopy. The guidewire entered the SVC. The existing triple-lumen catheter was removed and a new sterile 7 New Zealander Cook triple lumen catheter was threaded on the guidewire and passed easily through the IJ down to the lower portion of the SVC. The final position of the triple lumen catheter was documented under fluoroscopy. Good venous return was obtained from the ports, they flushed well as well. The catheter was secured in place by the IV therapy RN. The patient tolerated the procedure well. Estimate blood loss: 15 mL Attending Statement I was present for and supervised the procedure. Date of Service: 04/27/2017 Lynne Arredonod DO April 27, 2017 16:51 Hubert Morales MD May 12, 2017 11:44
--- NOTE | 2017-04-27 17:25 | NUR ---
PTT CAME BACK > 240 MD was notified and I sent a new specimen to check result. Also checked with MD russ. IVF's after 5th bag of saline... then to run fluids TKO. Pt continues on norepi and is at .07 at this time and BP is now 100/53 which is up from sys in the 88 range. UOP good. Pt states he feels "good". No obvious bleeding from his urethra since gautam was placed and urine is quite clear. Daughter came by to visit and I updated her on plan of care.
[2017-04-27 20:31] VITALS: BP 95/50; PULSE 62; RESP 28; O2SAT 98
[2017-04-27] MEDS: Piperacillin-Tazo 3.375 Gm Inj 3.375 GM in Dextrose 5% Minibag Plus 50 ML IV SCH (23:55)
--- NOTE | 2017-04-28 00:01 | PROCED ---
[address] [address] PROCEDURE NOTE PATIENT: YOCASTA TARIQ : 1930 MR#: [id number] ADMIT: 04/27/2017 JOB ID: [id number] DATE OF SERVICE: 04/27/2017 POSTOPERATIVE DIAGNOSIS(ES): PREOPERATIVE DIAGNOSIS(ES): PROCEDURE: Ultrasound-guided right internal jugular venous central line placement. SURGEON: Woo Jones DO SUPERVISING RESIDENT: Lynne Arredondo DO ATTENDING RAILWAY TRACK PLANT OPERATOR: Hubert Morales MD INDICATIONS FOR PROCEDURE: The patient is hypotensive, bordering on septic shock from a probable urinary tract infection. He requires fluids, as well as pressors that need to be given through a central line. Currently, access is through two small peripheral lines. Central access is required for pressor support. PROCEDURE IN DETAIL: Informed consent was obtained from the patient. We discussed bleeding and pneumothorax, among other issues. The patient consented to proceed. IV team was present for technical assistance. The right neck was interrogated with ultrasound and the right internal jugular vein was identified. The right neck was prepped in a sterile manner. The vein was relocated with ultrasound. The area was then marked. Again, the IJ was located with ultrasound guidance, The vein was easily entered with good venous return. Using Seldinger technique, a triple-vessel intrajugular venous cell line was placed without difficulty. Good venous return from all three ports. The site was sterilely prepped and bandaged. Confirmatory x-ray, however, showed an aberrant course to the intrajugular line with the course going laterally and cephalad. The situation was discussed with the parties present, namely Dr. Arredondo, the IV access team and myself. It was decided that we would attempt to reposition the catheter with fluoroscopy. The fluoroscopy photo optics technician was there almost immediately. The dressing was taken down. The tip of the intrajugular catheter was identified on fluoroscopy. It was pulled back until it was in a normal anatomical position. At this point, the catheter was cut to maintain sterility. A guidewire was passed through one of its ports and identified with fluoroscopy. It could be seen that, on a number of passes, the wire assumed a lateral trajectory. With some manipulation, it finally pursued a normal course. The distal remaining central line was removed. A new sterile central line was placed over the wire and assumed a normal course to the superior vena cava/right atrial junction. The catheter was identified on fluoroscopy to be in a normal anatomical position. There was good blood return from all three ports, which had been previously filled with saline. The central line was then sterilely dressed. A repeat study showed the central line in good position at about the junction of the SVC and the right atrium. Good blood return and a good infusion rate was determined. At the termination of the procedure, the patient did not demonstrate any arrhythmias. He had no pain throughout the procedure and tolerated it quite well. I was present throughout the entire procedure and supervised throughout. date of Service: 04/27/2017 JOSE
[2017-04-28 03:34] VITALS: BP 97/41; PULSE 62; RESP 22; O2SAT 95
[2017-04-28 03:44] LABS: BASOPHILS % (AUTO) 0.1 % (0-3); EOSINOPHILS % (AUTO) 0 % (0-5); MONOCYTES % (AUTO) 4.9 % (4-12); Mean Corpuscular Hemoglobin 30.9 pg (27.0-35.0); Mean Corpuscular Volume 97.9 fL (81-100); NEUTROPHILS % (AUTO) 90.1 % (40-74); Platelet Count 129 bil/L (150-400)
[2017-04-28] MEDS: 0.9% Sodium Chloride 1,000 ML IV SCH ×3 (03:52→23:32)
[2017-04-28 04:08] LABS: INR 2.04 ratio
[2017-04-28 04:16] LABS: Magnesium 1.8 mg/dL (1.6-2.6)
--- NOTE | 2017-04-28 05:11 | ABG ---
DateTimeAnalyzed 05:05:00 -_ pH ____7.342 - pCO2 ___36.8__ -mmHg pO2 ___33.2__ -mmHg HCO3- ___19.4__ -mmol/L ABE ___-5.2__ -mmol/L tHb ___10.7__ -g/dL O2Hb ___63.2__ -% COHb ____1.3__ -% MetHb ____1.1__ -% sO2 ___64.8__ -% FIO2 ___28.0__ -% Drawn By RN - Date/Time Notified____ 05:10:00 -_ Spontaneous_RR ___24.0__ -b/min Liter_Flow ____2.0__ -L/min Oxygen Device 1 __CANNULA - Notified By BLF - Notified Whom Mina SWAN RN - B 756 -mmHg tO2 ____9.5__ -Vol% OrderingPhysicianInitials bak - Cristiano test N/A -
--- NOTE | 2017-04-28 06:38 | NUR ---
Heparin / cardiac Order shows that Heparin gtt is switched to cardiac protocol, drip currently on hold for critical value. Restarted when PTT is appropriate at 1400 units/hr, double checked with Fernie French. AM value remains high so drip is turned off for 30 minutes and restarted at 1300units/hr. See lab values and flow sheet for further details. Tele mostly SB with first degree block. Patient occasionally drops as low as the 30s when sleeping soundly. When awake and rate is increased patient has what appears to be short bursts of afib or multiple PJCs. Patient remains on Levophed, able to titrate rate down slightly during shift.
[2017-04-28 08:08] VITALS: BP 113/50; PULSE 57; RESP 24; O2SAT 96
[2017-04-28] MEDS: Piperacillin-Tazo 3.375 Gm Inj 3.375 GM in Dextrose 5% Minibag Plus 50 ML IV SCH ×3 (08:13→23:32)
--- NOTE | 2017-04-28 08:51 | DRSVH ---
PROCEDURE: X-RAY CHEST ONE VIEW, PORTABLE ([id number]) INDICATIONS: septic shock TECHNIQUE: One view of the chest was acquired. COMPARISON: [facility], CR, XR CHEST 1VW (PORTABLE), 04/27/2017, 12:37. FINDINGS: Surgical changes and devices: Right IJ CVL tip now projected over the lateral aspect of the mid super ior vena cava. Median sternotomy wires. Lungs and pleura: No pleural effusions or pneumothorax. Bibasilar airspace opacities redemonstrated . Mediastinum: Mediastinal contours appear normal. Heart size is normal. Bones and chest wall: No suspicious bony lesions. Overlying soft tissues appear unremarkable. IMPRESSION: 1. Right IJ tube tip now projected over the lateral aspect of the mid superior vena cava. 2. Bibasilar atelectasis versus aspiration or pneumonia similar to prior exam. Correlate clinically. Dictated by: Carlo SHEN Interpreted: Filiberto Street MD on 04/28/2017 at 8:49 Transcribed by: GUERA on 04/28/2017 at 8:50 Approved by: Filiberto Street M.D. on 04/28/2017 at 10:28
--- NOTE | 2017-04-28 10:26 | NUR ---
NUTRITION ASSESSMENT: ASSESS: Pt is an 87yo M admitted to CCU for septic shock and hematuria. Plan for an echo today. Concern for possible endocarditis. He is currently NPOx1 day. PMHX: Aortic stenosis, CAD, DVT, HTN, Afib LABS: Reviewed. Cl 110, Glu 114, Ca 6.8, Alb 2.8 MEDS: Reviewed. GI: 0 BM, abdomen reported to be distended but bowel tones present SKIN: Nik 18 CURRENT WTS: 100.8kg, BMI 29.3kg/m2, IBW 83.6kg DIET: NPO EST. NEEDS: Kcals: 2220-2520kcal/day (22-25kcal/kg) Pro: 85-100g/day (1.0-1.2g/kg IBW) NUTRITION DIAGNOSIS: 1.) Inadequate oral intake related to decreased ability to consume sufficient energy as evidenced by current NPO status NUTRITION INTERVENTION: 1.) Recommend advance diet when medically appropriate. MONITOR / EVAL: NPO, diet advance, GI, labs, Wt, POC, nutrition status. Will continue to monitor per high nutrition risk guidelines.
[2017-04-28 12:30] VITALS: BP 91/47; PULSE 47; RESP 24; O2SAT 96
--- NOTE | 2017-04-28 13:18 | PCM.PNMED ---
Subjective Date of Service April 28, 2017 Subjective The patient continues to look and act much more robust and cogent than his CCU status would indicate. He remains on pressors with supplemental O2, but is completely clear and conversant, stating that he generally feels pretty good aside from some weakness and SOB. He denies chest pain, abdominal pain, nausea, vomiting, dysuria(Bro cath in place), or other constitutional symptoms. He states that he is much more comfortable in following placement of Bro cath and relief from his bladder distension. Comprehensive ROS negative except as listed above. Exam Vital Signs Vital Sign - Last Date Time Temp Pulse Resp B/P Pulse Ox O2 Delivery O2 Flow Rate FiO2 04/28/17 12:30 37.0 47 24 91/47 96 Nasal Cannula 2.00 Intake and Output 04/27/17 04/27/17 04/28/17 Cumulative From/Thru 15:00 23:00 07:00 04/27/17 09:50 - 04/28/17 06:24 Intake Total 2500 ml 5158 ml 1699 ml 9357 ml Output Total 285 ml 1200 ml 650 ml 2135 ml Balance 2215 ml 3958 ml 1049 ml 7222 ml Intake Oral 400 ml 400 ml IV Total 2500 ml 5158 ml 1299 ml 8957 ml Output Urine Total 285 ml 1200 ml 650 ml 2135 ml Exam Gen: A/O x3 pleasant cooperative gentleman in NAD Neck: Supple, non tender, no JVD, Full ROM, right IJ line in place and appears patent HEENT: PERRL, EOMI, no scleral icterus, no conjunctival pallor CV: RRR, no murmurs rubs or gallops Resp: Lungs CTA BL, no wheezing rales or rhonchi Abd: Soft, non-tender, no organomegaly, no rebound or guarding Extr: No clubbing cyanosis or edema Neuro: CN 2-12 grossly intact, no focal neurologic deficit Psych: Pleasant and appropriate mood and affect. IVs and Medications IV Fluids NS @ 100 ml/hr 150 ml delivered with IV meds Medications Reviewed: Medications were reviewed in detail Lab and Diagnostics Item Value Date Time Red Blood Count 3.40 mil/mm3 L 04/28/17 0300 Mean Corpuscular Volume 97.9 fL 04/28/17 0300 Mean Corpuscular Hemoglobin 30.9 pg 04/28/17 0300 Mean Corpuscular Hemoglobin Concent 31.5 % L 04/28/17 030 Red Cell Distribution Width 15.0 % 04/28/17 030 Neutrophils (%) (Auto) 90.1 % H 04/28/17 030 Lymphocytes (%) (Auto) 4.8 % L 04/28/17 030 Estimat Glomerular Filtration Rate 96 mL/min 04/28/17 030 Calcium Level 6.8 mg/dL *L 04/28/17 030 Phosphorus Level 3.0 mg/dL 04/28/17 030 Magnesium Level 1.8 mg/dL 04/28/17 030 Total Bilirubin 0.7 mg/dL 04/28/17 030 Aspartate Amino Transf (AST/SGOT) 16 U/L 04/28/17 0300 Alanine Aminotransferase (ALT/SGPT) 9 U/L 04/28/17 030 Alkaline Phosphatase 73 U/L 04/28/17 030 Total Protein 5.0 g/dL L 04/28/17 030 Albumin 2.8 g/dL L 04/28/17 030 Procalcitonin 57.40 ng/mL H 04/28/17 030 Prothrombin Time 22.2 sec H 04/28/17 0300 Prothromb Time International Ratio 2.04 ratio 04/28/17299 Activated Partial Thromboplast Time 107.0 sec H 04/28/17 030 Result Diagram: 04/28/17 0300 04/28/17 030 X-Rays, CTs and MRIs CT angiogram of the chest 1. Small subsegmental pulmonary embolus within the right lower lobe. 2. Right upper lobe nodule; followup is recommended as below. 3. Remote granulomatous disease. 4. Nonobstructing right superior pole nephroliths. 5. Small hiatal hernia. 6. No change in severe T10 compression fracture. 7. Findings discussed with Dr. Jaquez on 04.27.17 at 1012 hrs. Dictated by: Humza Harris M.D. on 04/27/2017 at 10:[address] 1. Cystitis. 2. Multiple urinary bladder diverticula, some of which contain calcifications. 3. Nonobstructing right superior pole nephrolith. 4. Remote granulomatous disease. 5. New small hiatal hernia. 6. Slight increase in size of infrarenal abdominal aortic aneurysm. 7. Normal appendix. 8. No change in severe T10 compression fracture. 9. 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 10. Findings discussed with Dr. Jaquez on 04.27.17 at 1011 hrs. Dictated by: Humza Harris M.D. on 04/27/2017 at 10:13 X-RAY CHEST ONE VIEW, PORTABLE IMPRESSION: 1. Right IJ tube tip now projected over the lateral aspect of the mid superior vena cava. 2. Bibasilar atelectasis versus aspiration or pneumonia similar to prior exam. Correlate clinically. Dictated by: Carlo Cho RRTanner Interpreted: Filiberto Street MD on 04/28/2017 at 8: 49 Transcribed by: GUERA on 04/28/2017 at 8:50 Approved by: Filiberto Street M.D. on 04/28/2017 at 10:28 . Additional Diagnostics DateTimeAnalyzed 05:05:00 -_ pH ____7.342 - pCO2 ___36.8__ -mmHg pO2 ___33.2__ -mmHg HCO3- ___19.4__ -mmol/L ABE ___-5.2__ -mmol/L tHb ___10.7__ -g/dL O2Hb ___63.2__ -% COHb ____1.3__ -% MetHb ____1.1__ -% sO2 ___64.8__ -% FIO2 ___28.0__ -% Assessment & Plan 87-year-old male history of single CABG, aortic valve replacement, and A. fib on Coumadin who initially presented with hematuria and no signs of infection presented to the emergency department this morning with measured fever, chills, and rigors and found to be in sepsis with shock. Patient has central line placed and is currently on pressure support with Levophed and multiple boluses of NS. Source of infection remains unclear at this point, most concerning would be involvement with prosthetic Aortic Valve. 1. Septic shock with elevated lactate; present admission; ongoing -Patient presents with a leukopenia, fever, and tachypnea; presumably secondary to UTI -Currently on pressure support through central line receiving boluses -Lactic acid trending and resolving; initial was 4.1 -MRSA negative -Recheck CBC and CMP, and lactic. -Respiratory PCR negative -S.pneumoniae urine antigen negative -Blood culture no growth @24 hours -Procalcitonin grossly elevated -ECHO to rule out involvement of prosthetic valve 2. Acute hypoxic respiratory failure; present on admission; ongoing -Does not use home O2; on 7L satting mid -Defer to ICU team today 3. Complicated UTI with hemorrhagic cystitis; present admission; ongoing -Patient presents with gross hematuria and CT evidence of cystitis with urinary bladder diverticula -When using urinal patient has joao bloody urine, but after Bro placement urine is clear -Started on Zosyn -Blood cultures and urine cultures as above -Urology consulted; appreciated recommendations 4. Chronic A. fib on Coumadin; present admission; ongoing -Initially sub therapeutic upon presentation -Appears that he is in normal sinus rhythm on auscultation -Patient presents with an INR of 1.83 and free blood on urination -Continue anticoagulation as bleeding appears stopped and H&H are stable; ICU team to add Heparin until therapeutic -Cardiology was consulted from the ED but is not needed at this time 5. Hyperglycemia; present admission; ongoing -On admit glucose is 120 -Check A1c -Start on low correctional; consider starting Lantus 6. Chronic diastolic heart failure with aortic valve replacement; present admission; stable -Last echo in December/2016 revealed an ejection fraction greater than 50% with relaxation abnormality in the left ventricle, severely dilated left atrium -Patient also has history of aortic stenosis with a bioprosthetic aortic valve -Hold carvedilol and lisinopril -Heparin until therapeutic on warfarin 7. 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 Expected length of stay is greater than 2 minutes. Pain Evaluation: Adequate Pain Control GI Prophylaxis: H2 jayda VTE Prophylaxis: Theraputic Anticoag with Warfarin, Other (on warfarin and actively bleeding) VTE Mechanical Devices: Intermittant Pneumatic CD Resuscitation Status: DNR/DNI:Do Not Resuscitate/Intubate Attending Statement The patient was seen and examined together with Dr. Jones on 04/28/2017 and I agree with the history, exam and plan as outlined in the note above. . Woo Jones DO April 28, 2017 13:18 Remy Foss MD Apr 30, 2017 19:08
--- NOTE | 2017-04-28 13:34 | PCM.PHAPRO ---
Progress Hematuria RPh WF DFF Date April 28-March INR 1.75 2.04 INR change 0.29 Warf Dose 2.5 1.25 A/P -Therapeutic INR. No additional bleeding reported. -Will dose based on home regimen and give 1.25mg this evening. -Pharmacy will continue to monitor. Omega Martinez. PharmD Omega Martinez April 28, 2017 13:34
--- NOTE | 2017-04-28 13:46 | DRSVH ---
[facility] [address] [facility] [place] [address] Echocardiogram Report Name: YOCASTA TARIQ Date : 04/28/2017 Height: 73 in Hospital Exam Location: [facility] Weight: 223 lb Gender: Male BSA: 2.3 m2 : 1930 Age: 87 yrs BP: 99/46 mm Hg Reason For Study: CARDIOGENIC SHOCK Ordering Physician: HOSPITALIST [facility] Performed By: Cooper De Anda Referring Physician: GONZALO DUGAN Interpretation Summary Left ventricular systolic function is normal with the ejection fraction visually estimated to be 60-65% without focal wall motion abnormalities except for septal motion consistent with a post-operative state. There has been no significant change since the previous study. The right ventricle is not well visualized but grossly appears to be at the upper limits of normal in size with right ventricular systolic function at the lower limits of normal and appears slightly less dynamic compared to the previous study. The right ventricular systolic pressure is estimated at 44 mmHg assuming a right atrial pressure of 8 mm Hg and is likely significantly higher compared to the previous study. There is mild biatrial enlargement but both atria have mildly decreased in size since the prior echo exam. There is a bioprosthetic aortic valve with gradients that are within the normal range for this type of valve with an aortic valve mean gradient of 12 mmHg suggesting the absence of hemodynamically significant valvular aortic stenosis. This is unchanged compared to the previous study. There is mild to moderate tricuspid regurgitation that is more prominent compared to the previous study. The ascending aorta is mildly enlarged but is unchanged compared to the previous study. The patient was in sinus bradycardia with heart rates between 47-57 bpm during the exam which is slower compared to the previous study. Procedure: A two-dimensional transthoracic echocardiogram with color flow and Doppler was performed. The study quality was technically difficult. Comparison is made with the echocardiogram of 01/05/17. A contrast injection of Definity was performed to improve assessment of LV function. The patient was in sinus bradycardia with heart rates between 47-57 bpm during the exam. This is slower compared to the previous study. Left Ventricle: The left ventricle is grossly normal size. There is normal left ventricular wall thickness. There is borderline proximal septal thickening noted. Left ventricular systolic function is normal without focal wall motion abnormalities. The ejection fraction is estimated to be 60-65%. Septal motion is consistent with post-operative state. There has been no significant change since the previous study. Diastolic function could not be accurately assessed due to contradictory data. Right Ventricle: The right ventricle is not well visualized. The right ventricle is at the upper limits of normal in size. Right ventricular systolic function is at the lower limits of normal. This is slightly less dynamic compared to the previous study. Atria: There is mild biatrial enlargement. Both atria have mildly decreased in size since the prior echo exam. The interatrial septum is intact with no evidence for an atrial septal defect. Mitral Valve: There is mild to moderate mitral annular calcification. The mitral valve leaflets are slightly calcified. The mitral valve leaflets appear mildly thickened, but open well. There is trace mitral regurgitation. Aortic Valve: There is a bioprosthetic aortic valve. The prosthetic aortic valve is well-seated. The gradients through the prosthetic aortic valve are within the normal range for this type of valve. There is no hemodynamically significant valvular aortic stenosis. The aortic valve mean gradient is 12 mmHg. This is unchanged compared to the previous study. No aortic regurgitation is present. Tricuspid Valve: The tricuspid valve is not well visualized, but is grossly normal. There is mild to moderate tricuspid regurgitation. The right ventricular systolic pressure is estimated at 44 mmHg assuming a right atrial pressure of 8 mm Hg. This is more prominent and significantly higher compared to the previous study. Pulmonic Valve: The pulmonic valve is not well visualized. There is trace pulmonic regurgitation. This is unchanged compared to the previous study. Great Vessels: The aortic root is normal size. The ascending aorta is mildly enlarged. This is unchanged compared to the previous study. The pulmonary artery is not well visualized, but is probably normal size. The IVC is dilated (diameter is greater than 2.1 cm) yet it collapses greater than 50% with a sniff. This suggests a right atrial pressure of 8 mm Hg. Pericardium/ Pleura There is no pericardial effusion. There is no pleural effusion. MMode/2D Measurements & Calculations RA long axis asc Aorta Diam TAPSE LA A2 area: 24.0 cm : 1.7 cm LA A4 area: 27.2 cm LA length (vol): 7.1 cmRA area: 24.6 cm LA vol: 77.8 ml RA vol: 85.9 ml LA vol index RA : 38.1 ml/m2 IVC diam: 2.9 cm Doppler Measurements & Calculations Ao V2 max MV E max nas MV E/A: 1.6 TR max nas : 251.4 cm/sec : 102.7 cm/sec Med Peak E' Nas : 299.9 cm/sec Ao max PG MV A max nas TR max PG : 25.3 mmHg : 64.5 cm/sec E/E' med: 14.6 : 36.0 mmHg Ao mean PG Lat Peak E' Nas PA V2 max : 12.0 mmHg : 72.7 cm/sec LVOT Max Nas E/E' lat: 13.7 PA mean PG : 115.0 cm/sec E/e' average: 14.2 : 1.2 mmHg sev ratio: 0.49 MV dec time Ao V2 mean LV V1 max PG PA V2 mean : 0.22 sec : 160.9 cm/sec : 51.9 cm/sec Ao V2 VTI: 51.2 cm LV V1 VTI: 25.1 cm PA pr(Accel) : 32.3 mmHg Reading Physician:01:45 PM
--- NOTE | 2017-04-28 15:01 | PCM.PNMED ---
Subjective Date of Service April 28, 2017 Subjective CCU PROGRESS NOTE. ATTENDING: DR. ALETHEA Cooley Riccardo is an 87 year old man with past medical history significant for coronary artery disease status post CABG 1 vessel, aortic stenosis status post bypass and valve replacement, superficial vein thrombosis, and atrial fibrillation on Coumadin who presented to the [facility] emergency department due to hematuria. Currently under treatment for hypotension and sepsis of unclear source. Overnight: The patient had an episode of bradycardia while asleep. Today: The patient is alert and feeling well. He was asking to go home today if possible. He denies any coughing, fevers, chills, abdominal pain, diarrhea, skin rash or nausea. The remainder of ROS is negative except as noted above. Exam Vital Signs Vital Sign - Last Date Time Temp Pulse Resp B/P Pulse Ox O2 Delivery O2 Flow Rate FiO2 04/28/17 12:30 37.0 47 24 91/47 96 Nasal Cannula 2.00 Intake and Output 04/27/17 04/27/17 04/28/17 Cumulative From/Thru 15:00 23:00 07:00 04/27/17 09:50 - 04/28/17 06:24 Intake Total 2500 ml 5158 ml 1699 ml 9357 ml Output Total 285 ml 1200 ml 650 ml 2135 ml Balance 2215 ml 3958 ml 1049 ml 7222 ml Intake Oral 400 ml 400 ml IV Total 2500 ml 5158 ml 1299 ml 8957 ml Output Urine Total 285 ml 1200 ml 650 ml 2135 ml Exam General: In no acute distress, frail elderly man, appropriately interactive HEENT: Normocephalic, atraumatic. External ears without defect. Pupils equal, round, and reactive to light and accommodation. Anicteric sclerae, moist conjunctivae, and no lid lag. Oropharynx free of erythema and cobble stoning with moist mucosa. Neck: Supple with full range of motion. No jugular venous distension. No lymphadenopathy or thyromegaly. R IJ in place without signs of bleeding. Cardiovascular: Regular rate and irregular rhythm with no murmurs, rubs, or gallops appreciated. Midline surgical sternal scar. Pulmonary: Clear to auscultation bilaterally with no crackles, wheezes, or rhonchi. Normal respiratory effort with no use of accessory muscles. Abdomen: Bowel tones present. Soft, nontender, nondistended. Obese. No hepatosplenomegaly or masses appreciated. Extremities: No clubbing, cyanosis, edema, or lymphadenopathy appreciated. Skin: Normal temperature, turgor, and texture; no rash, ulcers, or subcutaneous nodules appreciated. Neurological: Cranial nerves grossly intact. Normal muscle strength, tone, and bulk. Reflexes, coordination, and sensory function within normal limits. No known gait impairment. Psychiatric: Normal mood and affect. Alert and oriented to person, place, and time. : Blood coming out of the urethra. However, after catheterization urine appeared clear and yellow. IVs and Medications Medications Reviewed: Medications were reviewed in detail Lab and Diagnostics Result Diagram: 04/28/17 03004/28/17 0300 X-Rays, CTs and MRIs CT ABDOMEN AND PELVIS WITH CONTRAST IMPRESSION: 1. Cystitis. 2. Multiple urinary bladder diverticula, some of which contain calcifications. 3. Nonobstructing right superior pole nephrolith. 4. Remote granulomatous disease. 5. New small hiatal hernia. 6. Slight increase in size of infrarenal abdominal aortic aneurysm. 7. Normal appendix. 8. No change in severe T10 compression fracture. 9. 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 10. Findings discussed with Dr. Jaquez on 04.27.17 at 1011 hrs. Dictated by: Humza Harris M.D. on 04/27/2017 at 10:13 CT ANGIO CHEST PULMONARY EMBOLISM IMPRESSION: 1. Small subsegmental pulmonary embolus within the right lower lobe. 2. Right upper lobe nodule; followup is recommended as below. 3. Remote granulomatous disease. 4. Nonobstructing right superior pole nephroliths. 5. Small hiatal hernia. 6. No change in severe T10 compression fracture. 7. Findings discussed with Dr. Jaquez on 04.27.17 at 1012 hrs. Dictated by: Humza Harris M.D. on 04/27/2017 at 10:03 X-RAY CHEST ONE VIEW, PORTABLE IMPRESSION: 1. Right IJ tube tip now projected over the lateral aspect of the mid superior vena cava. 2. Bibasilar atelectasis versus aspiration or pneumonia similar to prior exam. Correlate clinically. Dictated by: Carlo Cho RRA Interpreted: Filiberto Street MD on 04/28/2017 at 8: 49 Additional Diagnostics Venous blood gas on [address] DateTimeAnalyzed 05:05:00 -_ pH ____7.342 - pCO2 ___36.8__ -mmHg pO2 ___33.2__ -mmHg HCO3- ___19.4__ -mmol/L Assessment & Plan Yasir Gu is an 87 year old man with past medical history significant for coronary artery disease status post CABG 1 vessel, aortic stenosis status post bypass and valve replacement, superficial vein thrombosis, and atrial fibrillation on Coumadin who presented to the [facility] emergency department due to hematuria. Currently under treatment for hypotension and sepsis of unclear source. Septic shock secondary to cystitis with bladder diverticula -Criteria: WBC 2.0, T 39.4, RR 37 with lactate of 4. Questionable pneumonia on CT -Unlikely that patient has a vesicocolonic fistula as there is no air in the Bro -Aggressive fluid resuscitation. Patient received 5 L of NS for resuscitation. Now on 100 cc/hr of NS -Lactic acid normalized -Urine legionella, urine strep pneumo, blood cultures, respiratory viral PCR, urine cultures negative. -Procalcitonin increased to 57 -Zosyn until antibiotics can be tailored. -NE for pressure support as needed, titrating down. -Concern for possible endocarditis given significant sepsis with an unimpressive urine, although ANGELICA failed to reveal vegetations -Infectious disease consulted, appreciate time and expertise. Hypoxemic respiratory failure, acute, improving -Noted to have emphysema, based on PFTs from 2016, with severe diffusion capacity reduction and obvious emphysema on CT -May be exacerbated by sepsis or alternative possibly secondary to PNA, although CT is not convincing of severe PNA -Continue to monitor, continue with O2 supplementation with O2 goal between 88 and 92%. -Titrate O2 down as the patient tolerates. Respiratory alkalosis secondary to hyperventilation secondary to sepsis with primary HAGMA secondary to lactic acidosis, resolved Small subsegmental PE Hematuria, likely secondary to cystitis -Urology consulted, appreciate time and expertise -Patient does have a noted granuloma, consider TB on the differential if no other etiology can ascertained Aortic stenosis s/p biomechanical valve replacement -Warfarin therapeutic, continue per pharmacy Atrial fibrillation on Coumadin -Now with episodes of bradycardia, Carvedilol held -Warfarin therapeutic, continue per pharmacy CAD s/p CABG Likely undiagnosed MARCELLA -Recommend outpatient sleep study Hypertension, currently hypotensive We will continue to follow along with you. VTE Prophylaxis: Theraputic Anticoag with Warfarin, Other (on warfarin and actively bleeding) VTE Mechanical Devices: Intermittant Pneumatic CD Resuscitation Status: DNR/DNI:Do Not Resuscitate/Intubate Time spent A total of 1 hour and 15 minutes critical care time was spent in the coordination and care of this patient. Attending Statement The patient was seen and examined together with Dr. Arredondo on 04/28/2017 and I agree with the history, exam and plan as outlined in the note above. Lynne Arredondo DO April 28, 2017 15:01 Hubert Morales MD May 11, 2017 11:23
--- NOTE | 2017-04-28 15:22 | NUR ---
Social Work-initial assessment: Data:see initial assessment. Pt is a 87 y/o male who was admitted on 04/27/17 for sepsis per H&P. Pt's insurance is [employer] and PCP is Ward Avila MD. EMR reviewed. Pt's readmission score is 3-high risk. SW met with pt at bedside to discuss discharge planning, SW role explained. Pt is alert and oriented x3. Pt resides at [facility] with [facility] where he remains independent with ADLS. Pt uses a cane and does drive. Pt has no HH or SNF history. Pt has no care home care insurance or VA benefits. SW discussed DPOA/ advanced directive, pt confirms he has completed this, SW encouraged a copy to be brought in. SW requested to call pt's and pt declining having SW speak with her. Pt's to provide transport home. SW to await MD orders for needs. SW provided phone number and plan on white board in room. SW will continue to follow. Assessment:Pt who is independent at baseline. Plan:Pt to likely discharge home when medically stable. SW to follow for MD orders for needs. SW will continue to follow. MAURICE Turner Addendum: 04/28/17 at 1526 by ALVINA FLORENCE Amended: Links added.
[2017-04-28 16:26] VITALS: BP 87/62; PULSE 64; RESP 17; O2SAT 97
--- NOTE | 2017-04-28 19:35 | NUR ---
Heparin gtt/ Penile bloody discharge/ Diet. Heparin gtt DC'd this AM per MD orders. Pt continues to have penile bloody discharge that does appear to have diminished after heparin gtt was stropped. Bro catheter continue to drain santo urine to gravity. Patient denies any pain. Rec'd call from Kadie GRIFFITH at Urology office and stated that an appointment has been made for pt on May 08 at 1245 as outpatient. certified anesthesiologist assistant was notified and has added this information to discharge information. Patient tolerates PO intake without report of N/V/D.
[2017-04-28 20:08] VITALS: BP 103/54; PULSE 76; RESP 19; O2SAT 95
--- NOTE | 2017-04-28 23:08 | CONS ---
[address] [address] CONSULTATION REPORT PATIENT: YOCASTA TARIQ : 1930 MR#: [id number] ADMIT: 04/27/2017 JOB ID: [id number] DATE OF SERVICE: 04/28/[address] Foss for this timely consult. REASON FOR CONSULTATION: Septic shock. HISTORY OF PRESENT ILLNESS: The patient is a quite active and generally healthy, 87-year-old gentleman. He has a significant past medical history including about six years ago having undergone a coronary artery bypass graft with replacement of his aortic valve and he also his A-flutter for which he is chronically anticoagulated, but is generally quite healthy and active and still works part-time. He reports that a few days ago on April 26, he presented to the emergency department with some hematuria as well as perhaps some vague malaise. He reported no symptoms compatible with a systemic infection and was given a prescription for oral antibiotics, but as he left and started to go home, he developed profound shaking rigors years which completely incapacitated him and subsequently with some fevers as well. Aside from his hematuria though, the patient had little or no symptomatology associated with this sudden onset of tremendous rigors and he specifically denied any problems with dysuria, urinary stream, urgency or frequency or pulmonary symptoms. The patient does note that he has had in the past urinary tract infection though there were heralded by the development of hematuria, so he was concerned this likely represented just an extreme case of one of his urinary tract infections. In any case, the patient returned to the emergency department for additional evaluation and was admitted with rigors, cyanosis around his lips, and lower abdominal pain. He noted that as he was evaluated in the ED and proceeded into his hospital course, that he also developed some shortness of breath which was unusual for him as he does not use oxygen at home. This admission occurred yesterday on April 27, and the patient was appropriately cultured and started on antibiotics which now include Zosyn as a single agent. He has not received any vancomycin. During his hospital course over the past day and a half or so, he has required vasopressor agents to maintain his blood pressure as well as supplemental oxygen. ID consultation was requested this morning during morning rounds with respect to the potential causes for this infection as at this point his urine culture is negative and his urinalysis is not really all that impressive for a person who appears to have a life-threatening sepsis, but trapped secondary to the urinary tract infection. PAST MEDICAL HISTORY: 1. Organic heart disease a. Coronary artery disease status post single-vessel coronary artery bypass graft about six years ago. b. Status post aortic valve replacement. c. Atrial fibrillation status post cardioversion with ongoing need for anticoagulation. 2. History of recurrent urinary tract infections. 3. History of deep venous thrombosis. 4. History of hypertension. SOCIAL HISTORY: The patient is a nonsmoker and non-alcohol consumer. He did smoke until 1982, however, when he would have been approximately 54 years old. 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 FAMILY HISTORY: Negative for tuberculosis in any first or second-degree relatives. REVIEW OF SYSTEMS: Was done. The patient states at this point he has no headache and no new visual complaints. No sore throat, trouble swallowing or cough. He has had some increasing shortness of breath the past couple of days and now is requiring some nasal oxygen which is unusual for him. Despite that, he has no productive cough and no pleuritic or substernal chest pain. The patient has no nausea and has not vomited. He has not had diarrhea. As noted, he started having hematuria about three days ago initially which was initially completely painless and without any fever but which subsequent was associated apparently with rigors. No swelling of any joints. No skin rash and no bleeding anywhere else. Remainder the review of systems is negative. PHYSICAL EXAMINATION: Reveals an afebrile gentleman, temp 37.1, pulse 76, respiratory rate 20, blood pressure 103/54, saturating well on 2 L. No acute distress. Head without trauma. Eyes without conjunctivitis. The oral cavity is without thrush or pharyngitis. The neck is quite supple for his age. No cervical adenopathy noted. No JVD is noted. Lungs with a few crackles bilaterally more towards the bases. Cardiac tones: A 2/6 murmur heard best in the aortic region. The patient has a well-healed sternotomy scar. Abdomen was soft and nontender without organomegaly or ascites. The penis and scrotum appear normal. The patient does have a Bro catheter in place which is not the standard for him. No inguinal adenopathy. Lower extremities are very well perfused with excellent pulses. No evidence of synovitis, cellulitis or skin breakdown. The patient is neurologically entirely intact. Has good strength throughout and no evidence of abnormalities. Mental status completely normal. Patient is very sharp for 87 years old. LABORATORY STUDIES: Include white blood count was 6000 during his ED visit on the . When he came back a few hours later, his white count had dropped to 2000 with left shift. Today, only one day later, it is 13,000 with a bigger left-shift. Meanwhile, his platelet count is dropping. It was normal and is now up to 129. His creatinine is 0.81. His LFTs have been normal. Lactic acid was 4.1 when he came to the ED yesterday morning for the second time. It is now down to 1.1. Procalcitonin is an impressive 57.4, albumin 2.8. Urinalysis has been done really four times in the past 36 hours. Three of these four urinalyses had no white cells while another had 11-50 white cells. All of them had abnormal concentrations of red blood cells. Urine Legionella and pneumococcal antigens have been negative. Micro studies include a negative MRSA screen, two negative urine cultures, and a 3rd that showed mixed jourdan and negative blood cultures x4 bottles or two sets from yesterday. IMAGING: Has been extensive as one might guess. A CT angio done yesterday shows a small subsegmental pulmonary embolus in the right lower lobe. A right upper lobe nodule is seen as well as evidence of remote granulomatous disease in this gentleman who grew up in [place]. A T10 compression fracture is also noted. The abdominal CT was done which showed what appears to be cystitis and urinary bladder diverticula, some of which are calcified. A nonobstructing right superior pole stone is present. Chest x-rays were done twice. Bibasilar atelectasis or pneumonia is noted on these radiographs. IMPRESSION: Though complicated urinary tract infection is an infrequent cause of septic shock requiring intensive care unit admission, it would appear the most likely diagnosis in this situation. Patient has had recurring UTIs that were preceded by hematuria, and this would appear to be another one. It is likely the patient had a transient bacteremia from his urinary tract infection which led to rigors which led him back to the ED yesterday. The patient states he is rapidly improving at this point, even though he remains on low doses of vasopressor agents and still needs some nasal oxygen, and I assume this reflects the improvement in his complicated urinary tract infection with sepsis. He does have a small pulmonary embolus as well as deep venous thrombosis and this, of course, is contributing at least in some small amount to his current situation. I see little or no evidence for pneumonia, though he does have what appears to be atelectasis especially at the left base and some remote granulomatous disease. The possibility of endocarditis certainly exists in a patient with a prosthetic valve and presents with sepsis, but in view of the new-onset hematuria in the absence of positive blood cultures, I think it is fairly unlikely at this point, though we do await maturation of the blood cultures. RECOMMENDATIONS: 1. Continue with Zosyn for the time being while we await our urine cultures. 2. Given that his MRSA screen is negative, I see no indication to add specific MRSA drug at this point. 3. Will continue to await the results of the blood and urine cultures and hope we can narrow somewhat our antibiotic choices going forward for an easy transition to oral therapy. 4. I note that Urology is already involved in this case which is certainly an important facet and Cardiology has already performed an echo which did not show any evidence of valvular dysfunction or vegetation.
[2017-04-28 23:34] VITALS: BP 101/44; PULSE 60; RESP 27; O2SAT 97
[2017-04-29 03:11] VITALS: BP 107/58; PULSE 59; RESP 22; O2SAT 96
--- NOTE | 2017-04-29 05:32 | NUR ---
Pressers Levophed titrated up during the night to maintain MAP>65. Max amount reached was 0.035mcg/kg/minute and 0.025mcg/kg/minute towards end of shift. AM labs drawn. NS 100ml/hour along with Zosyn. Dr. Saldana consulted with the patient last night. Pt slept well throughout the night.
[2017-04-29 05:33] LABS: BASOPHILS % (AUTO) 0.2 % (0-3); EOSINOPHILS % (AUTO) 0.7 % (0-5); MONOCYTES % (AUTO) 6.6 % (4-12); Mean Corpuscular Hemoglobin 31.3 pg (27.0-35.0); Mean Corpuscular Volume 98.8 fL (81-100); Platelet Count 109 bil/L (150-400)
[2017-04-29 05:48] LABS: INR 1.6 ratio
[2017-04-29 06:04] LABS: Magnesium 1.8 mg/dL (1.6-2.6); Phosphorus 1.7 mg/dL (2.5-4.9)
--- NOTE | 2017-04-29 07:48 | PROG NOTE ---
[address] [address] PROGRESS NOTE PATIENT: YOCASTA TARIQ : 1930 MR#: [id number] ADMIT: 04/27/2017 JOB ID: [id number] DATE: 04/29/2017 REASON FOR FOLLOWUP: Septic shock likely secondary to complicated urinary tract infection with hematuria. INTERVAL HISTORY: Overnight, the patient said he has felt steadily better. He has no fevers, chills, shortness of breath, cough at this point. He has no abdominal pain, nausea, vomiting, or diarrhea. He still has a Bro catheter in his bladder. He states he feels basically well enough to be discharged from his perspective. PHYSICAL EXAMINATION: Reveals an afebrile gentleman, temperature 37, pulse 60, respiratory 22, blood pressure 107/58, saturating well on 3.5 L. His mental status is completely clear. Note that he is still on a very low doses of norepinephrine 0.015 is the current dose which is down from yesterday and minimal but is still probably required to maintain his blood pressure. His lungs are clear. Cardiac tones irregular rate and rhythm with a soft aortic murmur as before. Abdomen is soft and nontender without organomegaly. Bro catheter is present draining clear yellow urine. No rash is noted. LABORATORIES: Include white count 10,000 today, 80% segs. Creatinine 0.83. LFTs are normal. Procalcitonin is down from 57 to 31. Urinalysis as before no white cells noted. Unfortunately urine cultures remain negative or mixed and are unremarkable-interpretable. Blood cultures are negative. MRSA screen negative. Yesterday's chest x-ray showed bilateral atelectasis type changes was not impressive. IMPRESSION: This patient has a prosthetic valve, but I did not think he has prosthetic valve endocarditis and more likely has developed septic shock secondary to complicated urinary tract infection. At this point, he is steadily improving though he remains on very low dose norepinephrine. The optimal antibiotic here is unclear as we have no positive cultures, but he is certainly improving with Zosyn and though it is coverage is likely overly broad I would continue with that for now at least until his vasopressor agents are off. RECOMMENDATIONS: 1. Will continue with Zosyn for the time being. 2. Continue to closely observe this patient as he is tapered off his Zosyn and then will attempt to derive a home oral regimen within the next 2 or 3 days to facilitate his discharge.
[2017-04-29 08:00] VITALS: BP 122/65; PULSE 58; RESP 22; O2SAT 96
[2017-04-29] MEDS: Piperacillin-Tazo 3.375 Gm Inj 3.375 GM in Dextrose 5% Minibag Plus 50 ML IV SCH ×2 (09:02→16:24)
[2017-04-29] MEDS: 0.9% Sodium Chloride 1,000 ML IV SCH ×2 (09:03→19:52)
--- NOTE | 2017-04-29 09:08 | DRSVH ---
PROCEDURE: X-RAY CHEST ONE VIEW, PORTABLE ([id number]) INDICATIONS: sepsis TECHNIQUE: One view of the chest was acquired. COMPARISON: [facility], CR, XR CHEST 1VW (PORTABLE), 04/28/2017, 5:49. [facility], CR, XR CHEST 1VW (PORTABLE), 04/27/2017, 12:37. FINDINGS: Surgical changes and devices: Central line from right internal jugular approach extends in the expect ed region of the superior vena cava, middle third. Lungs and pleura: No pleural effusions or pneumothorax. Lungs are abnormal with worsening bilateral pneumonia pattern, best seen at each lung base. The patient is rotated rightward. Mediastinum: Mediastinal contours appear normal. Heart size is normal. Bones and chest wall: No suspicious bony lesions. Overlying soft tissues appear unremarkable. IMPRESSION: Worsening bibasilar pneumonia, increased patient rotation rightward. Central line in nor mal position. Dictated by: Filiberto Street M.D. on 04/29/2017 at 9:05 Approved by: Filiberto Street M.D. on 04/29/2017 at 9:06
--- NOTE | 2017-04-29 09:31 | PCM.PNMED ---
Subjective Date of Service April 29, 2017 Subjective The patient continues to remain curiously cogent and sprightly despite continued dependence upon Norepi and grossly elevated procalcitonin without definite source of infection. He denies chest pain, SOB, abdominal pain, nausea , vomiting, or diarrhea. His only complaint is some small degree of back pain and difficulty sleeping as given his underlying kyphosis he has difficulty sleeping supine and cannot find a comfortable position on his side. Comprehensive ROS negative except as listed above. Exam Vital Signs Vital Sign - Last Date Time Temp Pulse Resp B/P Pulse Ox O2 Delivery O2 Flow Rate FiO2 04/29/17 03:11 37.0 59 22 107/58 96 Nasal Cannula 3.50 Intake and Output 04/28/17 04/28/17 04/29/17 Cumulative From/Thru 15:00 23:00 07:00 04/27/17 09:50 - 04/29/17 05:27 Intake Total 1826 ml 1589 ml 92033 ml Output Total 700 ml 950 ml 3785 ml Balance 1126 ml 639 ml 8987 ml Intake Oral 400 ml 250 ml 1050 ml IV Total 1426 ml 1339 ml 50439 ml Output Urine Total 700 ml 950 ml 3785 ml # Bowel Movements 0 1 1 Exam Gen: A/O x3 pleasant cooperative gentleman in NAD Neck: Supple, non tender, no JVD, Full ROM, right internal jugular line in place without erythema or infiltration HEENT: PERRL, EOMI, no scleral icterus, no conjunctival pallor CV: RRR no murmurs rubs or gallops Resp: Lungs CTA BL, no wheezing rales or rhonchi Abd: Soft, non-tender, no organomegaly, no rebound or guarding Extr: No clubbing cyanosis or edema Skin: Multiple large actinic keratosis Neuro: CN 2-12 grossly intact, no focal neurologic deficit Psych: Pleasant and appropriate mood and affect. IVs and Medications IV Fluids NS @ 100 ml hr 300 ml NS delivered with IV meds Medications Reviewed: Medications were reviewed in detail Lab and Diagnostics Item Value Date Time Red Blood Count 3.32 mil/mm3 L 04/29/17514 Mean Corpuscular Volume 98.8 fL 04/29/17514 Mean Corpuscular Hemoglobin 31.3 pg 04/29/17514 Mean Corpuscular Hemoglobin Concent 31.7 % L 04/29/17514 Red Cell Distribution Width 15.0 % 04/29/17514 Neutrophils (%) (Auto) 79.0 % H 04/29/17514 Lymphocytes (%) (Auto) 13.2 % L 04/29/17514 Monocytes (%) (Auto) 6.6 % 04/29/17514 Eosinophils (%) (Auto) 0.7 % 04/29/17514 Basophils (%) (Auto) 0.2 % 04/29/17514 Estimat Glomerular Filtration Rate 93 mL/min 04/29/17514 Calcium Level 7.1 mg/dL L 04/29/17514 Phosphorus Level 1.7 mg/dL L 04/29/17514 Magnesium Level 1.8 mg/dL 04/29/17514 Total Bilirubin 0.7 mg/dL 04/29/17514 Aspartate Amino Transf (AST/SGOT) 18 U/L 04/29/17514 Alanine Aminotransferase (ALT/SGPT) 10 U/L 04/29/17514 Alkaline Phosphatase 59 U/L 04/29/17514 Total Protein 5.0 g/dL L 04/29/17514 Albumin 2.5 g/dL L 04/29/17514 Procalcitonin 30.97 ng/mL H 04/29/17514 Prothrombin Time 17.3 sec H 04/29/17514 Prothromb Time International Ratio 1.60 ratio 04/29/17514 Result Diagram: 04/29/1751404/29/17514 X-Rays, CTs and MRIs CT angiogram of the chest 1. Small subsegmental pulmonary embolus within the right lower lobe. 2. Right upper lobe nodule; followup is recommended as below. 3. Remote granulomatous disease. 4. Nonobstructing right superior pole nephroliths. 5. Small hiatal hernia. 6. No change in severe T10 compression fracture. 7. Findings discussed with Dr. Jaquez on 04.27.17 at 1012 hrs. Dictated by: Humza Harris M.D. on 04/27/2017 at 10:[address] 1. Cystitis. 2. Multiple urinary bladder diverticula, some of which contain calcifications. 3. Nonobstructing right superior pole nephrolith. 4. Remote granulomatous disease. 5. New small hiatal hernia. 6. Slight increase in size of infrarenal abdominal aortic aneurysm. 7. Normal appendix. 8. No change in severe T10 compression fracture. 9. 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 10. Findings discussed with Dr. Jaquez on 04.27.17 at 1011 hrs. Dictated by: Humza Harris M.D. on 04/27/2017 at 10:13 X-RAY CHEST ONE VIEW, PORTABLE IMPRESSION: 1. Right IJ tube tip now projected over the lateral aspect of the mid superior vena cava. 2. Bibasilar atelectasis versus aspiration or pneumonia similar to prior exam. Correlate clinically. Dictated by: Carlo Cho RRA Interpreted: Filiberto Street MD on 04/28/2017 at 8: 49 Transcribed by: GUERA on 04/28/2017 at 8:50 Approved by: Filiberto Street M.D. on 04/28/2017 at 10:28 . Cardiac Echo Impressions Interpretation Summary Left ventricular systolic function is normal with the ejection fraction visually estimated to be 60-65% without focal wall motion abnormalities except for septal motion consistent with a post-operative state. There has been no significant change since the previous study. The right ventricle is not well visualized but grossly appears to be at the upper limits of normal in size with right ventricular systolic function at the lower limits of normal and appears slightly less dynamic compared to the previous study. The right ventricular systolic pressure is estimated at 44 mmHg assuming a right atrial pressure of 8 mm Hg and is likely significantly higher compared to the previous study. There is mild biatrial enlargement but both atria have mildly decreased in size since the prior echo exam. There is a bioprosthetic aortic valve with gradients that are within the normal range for this type of valve with an aortic valve mean gradient of 12 mmHg suggesting the absence of hemodynamically significant valvular aortic stenosis. This is unchanged compared to the previous study. There is mild to moderate tricuspid regurgitation that is more prominent compared to the previous study. The ascending aorta is mildly enlarged but is unchanged compared to the previous study. The patient was in sinus bradycardia with heart rates between 47-57 bpm during the exam which is slower compared to the previous study. Reading Physician:01:45 PM Assessment & Plan 87-year-old male history of single CABG, aortic valve replacement, and A. fib on Coumadin who initially presented with hematuria presented to the emergency department on 04/27 with measured fever, chills, and rigors and found to be in sepsis with shock. Patient had central line placed and is currently on pressure support with Levophed. Source of infection remains unclear at this point, as the only clearly abnormal finding is a small degree of cystitis on CT which would seem insufficient to produce his septic shock and grossly elevated procalcitonin. 1. Septic shock with elevated lactate; present admission; improved -Patient presents with a leukopenia, fever, and tachypnea; presumably secondary to UTI -Currently on pressure support through central line receiving boluses -Lactic acid trending and resolving; initial was 4.1 -MRSA negative -Recheck CBC and CMP, and lactic. -Respiratory PCR negative -S.pneumoniae urine antigen negative -Blood culture no growth @48 hours -Procalcitonin grossly elevated but downtrending -ECHO completed without evidence of valvular pathology 2. Acute hypoxic respiratory failure; present on admission; ongoing -Does not use home O2; on supplemental O2 via nasal cannula 3. Complicated UTI with hemorrhagic cystitis; present admission; ongoing -Patient presents with gross hematuria and CT evidence of cystitis with urinary bladder diverticula -When using urinal patient has joao bloody urine, but after Bro placement urine is clear -Started on Zosyn -Blood cultures and urine cultures clear -Urology consulted; appreciated recommendations 4. Chronic A. fib on Coumadin; present admission; ongoing -Initially sub therapeutic upon presentation -Appears that he is in normal sinus rhythm on auscultation -Patient's INR dropped below therapeutic threshold over the evening, using Heparin until INR within acceptable range -Continue anticoagulation as bleeding appears stopped and H&H are stable -Cardiology was consulted from the ED but is not needed at this time 5. Hyperglycemia; present admission; stable -On admit glucose is 120 -Start on low correctional; consider starting Lantus 6. Chronic diastolic heart failure with aortic valve replacement; present admission; stable -Patient also has history of aortic stenosis with a bioprosthetic aortic valve -Hold carvedilol and lisinopril -Heparin until therapeutic on warfarin -ECHO as above with minimal change compared to prior study 7. 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 Pain Evaluation: Adequate Pain Control VTE Prophylaxis: Theraputic Anticoag with Warfarin, Other (on warfarin and actively bleeding) VTE Mechanical Devices: Intermittant Pneumatic CD Resuscitation Status: DNR/DNI:Do Not Resuscitate/Intubate Attending Statement The patient was seen and examined together with Dr. Jones on 04/29/2017 and I agree with the history, exam and plan as outlined in the note above. . Woo Jones DO April 29, 2017 09:31 Remy Foss MD Apr 30, 2017 19:09
[2017-04-29] MEDS: Heparin 25K Unit/500mL 0.45 NS 25,000 UNIT in IV Premix 1 EACH IV SCH (11:26)
[2017-04-29 12:30] VITALS: BP 116/54; PULSE 62; RESP 22; O2SAT 96
[2017-04-29] MEDS ORDERED: Potassium Phos (mMol) Inj 30 MMOL in Dextrose 5% 500 ML IV ONE (14:30)
--- NOTE | 2017-04-29 15:27 | PROG NOTE ---
[address] [address] PROGRESS NOTE PATIENT: YOCASTA TARIQ : 1930 MR#: [id number] ADMIT: 04/27/2017 JOB ID: [id number] DATE: 04/29/2017 PULMONARY CRITICAL CARE FOLLOW UP NOTE: PROBLEM LIST: 1. Sepsis. 2. Hypertension. 3. Hypoxemic respiratory failure. 4. Subsegmental PE. 5. Hematuria. 6. Aortic stenosis status post biomechanical valve replacement. 7. Atrial fibrillation. SUBJECTIVE: Feels fine. No shortness of breath. No cough or sputum production. Appetite improving. No chest or abdominal pain. OBJECTIVE: Temperature 37 with T-max being 37.6, pulse 60, respiratory rate low 20s. Blood pressure 122/65, O2 sat on 2 L is 96%. I and O shows 3.5 L in, 1.3 L out. General appearance: No acute distress. Speaking easily. Moving around the bed easily. Eyes: Conjunctivae are pink. Chest: Fairly good breath sounds bilaterally. Lung neri are clear. No use of accessory muscles. Heart: Heart tones normal. No S3. Abdomen: Soft. Nondistended. Nontender. Liver and spleen not palpable. No masses palpable. Bowel sounds are active. Extremities: No pretibial edema. LABORATORY DATA: Shows a white count of 10,500 with 79 polymorphonuclears, no bands, 13 lymphocytes, 6 monocytes. Hemoglobin is stable at 10.4 after initial drop 48 hours ago. Platelet count 109,000, slowly decreasing. Sodium 139, potassium 3.8, chloride 110, CO2 is 19. BUN 11, creatinine 0.8. Calcium 7.1 phosphorus 1.7, magnesium 1.8. Bilirubin 0.7. Transaminases are normal. Alkaline phos normal. Procalcitonin 30.97 down from 57.40. INR 1.6. Urine for Legionella antigen is negative. Urine for Streptococcus antigen is negative. Chest x-ray: Persistent bilateral infiltrates. ASSESSMENT: 1. Sepsis. The source of infection still unclear. Initially thought to be a urinary tract infection. Now suspect this is a respiratory tract infection with some pulmonary infiltrates. Decreasing platelet count is probably some DIC. Otherwise overall he is doing better. Procalcitonin decreasing. White cell count normalizing. 2. Electrolyte abnormalities. Potassium on the low side. Phosphorus mildly low. Would benefit from K-Phos. 3. Anticoagulation. ProTime dropping. Need somewhat better control. May need to bridge the Coumadin due to the atrial fibrillation. PLAN: 1. Continue current regimen. 2. Probably can back off on fluids as the patient is starting to eat. 3. Consider heparin infusion. 4. Continue current regimen of antibiotics. 5. K-Phos infusion. Discussed the diet with the patient. TIME SPENT: In critical care 30 minutes.
[2017-04-29 15:38] VITALS: PULSE 63
[2017-04-29 16:26] VITALS: BP 142/67; PULSE 66; RESP 22
--- NOTE | 2017-04-29 16:45 | NUR ---
Evaluation completed. Please go to "Notes" then click on "Assessments and Notes" (bottom left corner of screen). Then select appropriate discipline tab on top of screen.
--- NOTE | 2017-04-29 17:35 | NUR ---
Transfer out of ccu Patient weaned off of pressors by 1000 this am. Blood pressures have been stable. Patient reports feeling much better . Denies any pain or complaints. Has been out of bed ambulated in the valdes and tolerated well. Patient's and duaghter at bedside and updated on care. Patient status downgraded to medical floor remote telemetry status. Heparin gtt restarted no further hematuria. Patient has had a small amount of bleeding around the catheter at the entrance of the urethra. At last check no joao blood was present.
[2017-04-29] MEDS ORDERED: Heparin 5,000 Unit/mL Inj ONE (18:47)
[2017-04-29 19:37] VITALS: BP 148/72; PULSE 67; RESP 26; O2SAT 94
[2017-04-30] VITALS (8 sets, daily range): BP systolic 113–146; BP diastolic 60–72; PULSE 54–68; RESP 16–28; O2SAT 91–96
[2017-04-30] MEDS: Piperacillin-Tazo 3.375 Gm Inj 3.375 GM in Dextrose 5% Minibag Plus 50 ML IV SCH ×3 (00:07→16:11)
[2017-04-30] MEDS ORDERED: Heparin Protocol Boluses IVPUSH PRN (01:20)
[2017-04-30] MEDS: 0.9% Sodium Chloride 1,000 ML IV SCH ×2 (04:05→15:52)
[2017-04-30 06:31] LABS: BASOPHILS % (AUTO) 0.3 % (0-3); EOSINOPHILS % (AUTO) 1.7 % (0-5); MONOCYTES % (AUTO) 5.2 % (4-12); Mean Corpuscular Hemoglobin 31.3 pg (27.0-35.0); Mean Corpuscular Volume 96.9 fL (81-100); NEUTROPHILS % (AUTO) 80.5 % (40-74); Platelet Count 122 bil/L (150-400)
[2017-04-30 06:38] LABS: INR 1.58 ratio
[2017-04-30 07:04] LABS: Magnesium 1.8 mg/dL (1.6-2.6); Phosphorus 2.1 mg/dL (2.5-4.9)
--- NOTE | 2017-04-30 07:35 | NUR ---
Restful Night/ Pt appeared to sleep comfortably between care interventions, denied any pain all night. 2-3L NC applied d/t desats to 90-91 while pt slept. No blood observed in urine though minimal amount seen around urethra, heparin gtt continues, notified.
--- NOTE | 2017-04-30 08:17 | DRSVH ---
PROCEDURE: X-RAY CHEST ONE VIEW, PORTABLE ([id number]) INDICATIONS: fu possible aspiration TECHNIQUE: One view of the chest was acquired. COMPARISON: [facility], CR, XR CHEST 2VW, 10/10/2016, 8:44. [facility], CR , XR CHEST 1VW (PORTABLE), 04/29/2017, 8:40. FINDINGS: Surgical changes and devices: Post median sternotomy. No change in positioning of right IJ CVL with tube tip projected over the mid to lower SVC. Lungs and pleura: Lung lines have increased and there is persistent mid/basilar interstitial and air space opacities. There is mild blunting of right costophrenic angle likely small effusion.. Mediastinum: Mediastinal contours appear normal. Heart size is normal. Bones and chest wall: No suspicious bony lesions. Overlying soft tissues appear unremarkable. IMPRESSION: Findings suspicious for bilateral aspiration or pneumonia although differential also incl ude patchy pulmonary edema. Correlate clinically. Dictated by: Carlo Cho RRA Interpreted: Vic Pearl MD on 04/30/2017 at 8:14 Transcribed by: HETAL on 04/30/2017 at 8:17 Approved by: Vic Pearl M.D. on 04/30/2017 at 12:17
--- NOTE | 2017-04-30 08:49 | PROG NOTE ---
[address] [address] PROGRESS NOTE PATIENT: YOCASTA TARIQ : 1930 MR#: [id number] ADMIT: 04/27/2017 JOB ID: [id number] DATE: 04/30/2017 INFECTIOUS DISEASE FOLLOW UP NOTE: REASON FOR FOLLOWUP: Septic shock secondary to complicated urinary tract infection. INTERVAL HISTORY: Overnight the patient says he is much improved. He reports no fever, chills or significant shortness of breath. He tells me he was able to walk with physical therapy yesterday. No significant cough. No chest pain. No nausea, vomiting or diarrhea. He still has a Bro catheter in place. PHYSICAL EXAMINATION: Reveals a comfortable gentleman in no acute distress. Temperature 36.7, pulse 54, respiratory rate 16, blood pressure 113/72. Saturating 92% on 2 L and very comfortable. He is awake and alert. Oral cavity negative. Right IJ central line appears benign. Lungs with good air flow bilaterally and no significant rales at this time. Murmur is heard in the aortic position as per yesterday. Abdomen is soft and nontender. A Bro catheter is draining clear, yellow urine. LABORATORIES: Include a white count of 7700, 80% segs. His creatinine is 0.69. His LFTs are normal. His procalcitonin is rapidly falling. It was 58 two days ago, 30 yesterday and 13 today. Micro studies remain essentially negative including blood and urine cultures. Outpatient urine cultures done prior to admission yielded only mixed jourdan. A chest x-ray done today shows questionable aspiration pneumonia though could easily be interpreted as pulmonary edema or atelectasis. IMPRESSION: This patient likely has a complicated urinary tract infection which produced septic shock. There is no evidence at this point for prosthetic valve endocarditis. The possibility of a pulmonary infection also exists but I think it is much less likely and he is rapidly improving by clinical and laboratory parameters. He is on Zosyn. RECOMMENDATIONS: 1. Will continue with Zosyn for the time being. 2. Will watch the patient closely in the next day or two and then hopefully switch to an oral regimen for discharge.
--- NOTE | 2017-04-30 10:20 | NUR ---
NUTRITION FOLLOW-UP ASSESS: Pt is an 87yo M admitted to CCU for septic shock and hematuria. Diet has been advanced to heart healthy/consistent carb. He is tolerating diet well at 100%. PMHX: Aortic stenosis, CAD, DVT, HTN, Afib LABS: Reviewed. 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 GI: BMx1 04/29 SKIN: Nik 19 CURRENT WTS: 102.9kg, BMI 29.9kg/m2, IBW 83.6kg DIET: HH/CC, PO 100% EST. NEEDS: Kcals: 2220-2520kcal/day (22-25kcal/kg) Pro: 85-100g/day (1.0-1.2g/kg IBW) NUTRITION DIAGNOSIS: 1.) Inadequate oral intake related to decreased ability to consume sufficient energy as evidenced by current NPO status--RESOLVED NUTRITION INTERVENTION: 1.) Continue current diet and encourage PO intake MONITOR / EVAL: PO, GI, wt, labs, POC, nutrition status. Will continue to monitor per moderate nutrition risk guidelines
--- NOTE | 2017-04-30 11:19 | PCM.PNMED ---
Subjective Date of Service Apr 30, 2017 Subjective Patient continues to recover very well from his acute illness. He is fully awake and cogent, he does continue to feel a little more unsteady on his feet than baseline, he is usually able to ambulate with a cane and now requires a walker. Otherwise he has not complaints and is eager to get back home. Comprehensive ROS negative except as outlined above. Exam Vital Signs Vital Sign - Last Date Time Temp Pulse Resp B/P Pulse Ox O2 Delivery O2 Flow Rate FiO2 04/30/17 08:00 60 04/30/17 07:46 Supplement Oxygen 04/30/17 07:36 36.7 16 113/72 92 2.00 04/29/17 16:26 94 Intake and Output 04/29/17 04/29/17 04/30/17 Cumulative From/Thru 15:00 23:00 07:00 04/27/17 09:50 - 04/30/17 06:30 Intake Total 2050 ml 300 ml 21466 ml Output Total 2100 ml 2000 ml 7885 ml Balance -50 ml -1700 ml 7237 ml Intake Oral 450 ml 300 ml 1800 ml IV Total 1600 ml 70269 ml Output Urine Total 2100 ml 2000 ml 7885 ml # Bowel Movements 1 Exam Gen: A/O x3 pleasant cooperative elderly gentleman in NAD Neck: Supple, non tender, no JVD, Full ROM, right IJ line in place HEENT: PERRL, EOMI, no scleral icterus, no conjunctival pallor CV: RRR no murmurs rubs or gallops Resp: Lungs CTA BL, no wheezing rales or rhonchi Back: marked kyphosis Abd: Soft, non-tender, no organomegaly, no rebound or guarding Extr: No clubbing cyanosis or edema Skin: Multiple actinic keratosis and small telangiectasias Neuro: CN 2-12 grossly intact, no focal neurologic deficit Psych: Pleasant and appropriate mood and affect. IVs and Medications IV Fluids 550 ml NS delivered with IV meds Medications Reviewed: Medications were reviewed in detail Lab and Diagnostics Item Value Date Time Red Blood Count 3.58 mil/mm3 L 04/30/17 06 Mean Corpuscular Volume 96.9 fL 04/30/17 06 Mean Corpuscular Hemoglobin 31.3 pg 04/30/[address] Mean Corpuscular Hemoglobin Concent 32.3 % 04/30/17 06 Red Cell Distribution Width 14.9 % 04/30/[address] Platelet Count 122 andrei/L L 04/30/17 06 Lymphocytes (%) (Auto) 11.9 % L 04/30/17 06 Monocytes (%) (Auto) 5.2 % 04/30/17 06 Eosinophils (%) (Auto) 1.7 % 04/30/17 06 Basophils (%) (Auto) 0.3 % 04/30/[address] Estimat Glomerular Filtration Rate 116 mL/min 04/30/17 06 Calcium Level 7.8 mg/dL L 04/30/17 06 Phosphorus Level 2.1 mg/dL L 04/30/17 06 Magnesium Level 1.8 mg/dL 04/30/[address]604 Total Bilirubin 0.9 mg/dL 04/30/[address] Aspartate Amino Transf (AST/SGOT) 17 U/L 04/30/17 06 Alanine Aminotransferase (ALT/SGPT) 11 U/L 04/30/[address] Alkaline Phosphatase 68 U/L 04/30/17 06 Albumin 2.7 g/dL L 04/30/17 06 Total Protein 5.6 g/dL L 04/30/17 06 Prealbumin 16 mg/dL L 04/30/17 06 Procalcitonin 13.28 ng/mL H 04/30/17604 Result Diagram: 04/30/17 0605 04/30/17604 Microbiology Blood, sputum, and urine culture negative to date Resp PCR negative X-Rays, CTs and MRIs CT angiogram of the chest 1. Small subsegmental pulmonary embolus within the right lower lobe. 2. Right upper lobe nodule; followup is recommended as below. 3. Remote granulomatous disease. 4. Nonobstructing right superior pole nephroliths. 5. Small hiatal hernia. 6. No change in severe T10 compression fracture. 7. Findings discussed with Dr. Jaquez on 04.27.17 at 1012 hrs. Dictated by: Humza Harris M.D. on 04/27/2017 at 10:[address] 1. Cystitis. 2. Multiple urinary bladder diverticula, some of which contain calcifications. 3. Nonobstructing right superior pole nephrolith. 4. Remote granulomatous disease. 5. New small hiatal hernia. 6. Slight increase in size of infrarenal abdominal aortic aneurysm. 7. Normal appendix. 8. No change in severe T10 compression fracture. 9. 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 10. Findings discussed with Dr. Jaquez on 17 at 1011 hrs. Dictated by: Humza Harris M.D. on 04/27/2017 at 10:13 X-RAY CHEST ONE VIEW, PORTABLE IMPRESSION: 1. Right IJ tube tip now projected over the lateral aspect of the mid superior vena cava. 2. Bibasilar atelectasis versus aspiration or pneumonia similar to prior exam. Correlate clinically. Dictated by: Carlo Cho RRA Interpreted: Filiberto Street MD on 04/28/2017 at 8: 49 Transcribed by: GUERA on 04/28/2017 at 8:50 Approved by: Filiberto Street M.D. on 04/28/2017 at 10:28 . Cardiac Echo Impressions Interpretation Summary Left ventricular systolic function is normal with the ejection fraction visually estimated to be 60-65% without focal wall motion abnormalities except for septal motion consistent with a post-operative state. There has been no significant change since the previous study. The right ventricle is not well visualized but grossly appears to be at the upper limits of normal in size with right ventricular systolic function at the lower limits of normal and appears slightly less dynamic compared to the previous study. The right ventricular systolic pressure is estimated at 44 mmHg assuming a right atrial pressure of 8 mm Hg and is likely significantly higher compared to the previous study. There is mild biatrial enlargement but both atria have mildly decreased in size since the prior echo exam. There is a bioprosthetic aortic valve with gradients that are within the normal range for this type of valve with an aortic valve mean gradient of 12 mmHg suggesting the absence of hemodynamically significant valvular aortic stenosis. This is unchanged compared to the previous study. There is mild to moderate tricuspid regurgitation that is more prominent compared to the previous study. The ascending aorta is mildly enlarged but is unchanged compared to the previous study. The patient was in sinus bradycardia with heart rates between 47-57 bpm during the exam which is slower compared to the previous study. Reading Physician:01:45 PM Assessment & Plan 87-year-old male history of single CABG, aortic valve replacement, and A. fib on Coumadin who initially presented with hematuria presented to the emergency department on 04/27 with measured fever, chills, and rigors and found to be in sepsis with shock. Patient had central line placed, pressors have been titrated off with stable hemodynamics. Source of infection remains unclear at this point, as the only clearly abnormal finding is a small degree of cystitis on CT which would seem insufficient to produce his septic shock and grossly elevated procalcitonin. CXR indicative of possible pneumonia, however the patient has no respiratory symptoms. Overall the etiology of his acute septic shock is unclear, but is improving markedly with IV antibiotics 1. Septic shock with elevated lactate; present admission; Resolved -Patient presents with a leukopenia, fever, and tachypnea; presumably secondary to UTI -Lactic acid trending and resolving; initial was 4.1 -MRSA negative -Recheck CBC and CMP, and lactic. -Respiratory PCR negative -S.pneumoniae urine antigen negative -Blood culture no growth @48 hours -Procalcitonin grossly elevated but downtrending -ECHO completed without evidence of valvular pathology 2. Acute hypoxic respiratory failure; present on admission; ongoing -Does not use home O2; on supplemental O2 via nasal cannula 3. Complicated UTI with hemorrhagic cystitis; present admission; ongoing -Patient presents with gross hematuria and CT evidence of cystitis with urinary bladder diverticula -When using urinal patient has joao bloody urine, but after Bro placement urine is clear -Continue Zosyn -Blood cultures and urine cultures clear -Urology consulted; appreciated recommendations -ID on board and we appreciate their input 4. Chronic A. fib on Coumadin; present admission; ongoing -Initially sub therapeutic upon presentation -Appears that he is in normal sinus rhythm on auscultation -Patient's INR dropped below therapeutic threshold over the evening, using Heparin until INR within acceptable range -Continue anticoagulation as bleeding appears stopped and H&H are stable 5. Hyperglycemia; present admission; stable -On admit glucose is 120 -Start on low correctional; consider starting Lantus 6. Chronic diastolic heart failure with aortic valve replacement; present admission; stable -Patient also has history of aortic stenosis with a bioprosthetic aortic valve -Hold carvedilol and lisinopril -Heparin until therapeutic on warfarin -ECHO as above with minimal change compared to prior study 7. Very mild respiratory alkalosis; present on admission; improving -Tachypneic with RR 20-30 and pH 7.47 upon presentation -Saturation stable on Nasal cannula -Receiving fluids -ICU managing 8. Small subsegmental Pulmonary embolus, POA, acute. 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 Jones on 04/30/2017 and I agree with the history, exam and plan as outlined in the note above. . Woo Jones DO Apr 30, 2017 11:19 Remy Foss MD Apr 30, 2017 19:11
[2017-04-30] MEDS: Heparin 25K Unit/500mL 0.45 NS 25,000 UNIT in IV Premix 1 EACH IV SCH (12:17)
--- NOTE | 2017-04-30 13:02 | NUR ---
transfer pt brought up from [facility]. pt denies pain/CP/nausea and vomiting. pt states that he has been voiding a lot and had a BM yesterday. pt is eating lunch and visiting with his daughter. pt has Heparin running and a bag of NS hanging but not hooked up.
--- NOTE | 2017-04-30 13:05 | NUR ---
Transfer to [facility] Pt transferred [place] [facility] via wheelchair. Report given to Son Boo RN.
[2017-05-01] MEDS ORDERED: 0.9% Sodium Chloride 250 ML ONE (00:11)
[2017-05-01] MEDS: Piperacillin-Tazo 3.375 Gm Inj 3.375 GM in Dextrose 5% Minibag Plus 50 ML IV SCH ×4 (00:16→23:51)
[2017-05-01] MEDS: 0.9% Sodium Chloride 1,000 ML IV SCH ×3 (00:22→22:05)
[2017-05-01 04:30] LABS: BASOPHILS % (AUTO) 0.3 % (0-3); EOSINOPHILS % (AUTO) 2.9 % (0-5); MONOCYTES % (AUTO) 8.7 % (4-12); Mean Corpuscular Hemoglobin 31.5 pg (27.0-35.0); Mean Corpuscular Volume 97.1 fL (81-100); NEUTROPHILS % (AUTO) 60.3 % (40-74); Platelet Count 137 bil/L (150-400)
[2017-05-01 04:49] LABS: INR 3.19 ratio
[2017-05-01 05:01] LABS: Magnesium 1.8 mg/dL (1.6-2.6); Phosphorus 2.4 mg/dL (2.5-4.9)
[2017-05-01 05:54] VITALS: BP 162/71; PULSE 63; RESP 20; O2SAT 93
--- NOTE | 2017-05-01 06:39 | NUR ---
Hematuria Urine pink tinged throughout shift.
--- NOTE | 2017-05-01 10:25 | NUR ---
Heparin Drip: Per MD patients Heparin drip has been discontinued. His INR is 3.19 now. Patients urine is pink tinged. Urostomy bags are draining clear pale yellow urine.
--- NOTE | 2017-05-01 10:30 | NUR ---
Social Work: Continued d/c planning Data: Pt is on day 4 of hospitalization. EMR reviewed. Pt discussed in rounds. PT recommending home no PT needs and possible need for a walker. PT reports pt states he will likely buy this privately. [employer] awaiting MD order to discuss walker with pt. [employer] will continue to follow. Assessment: Pt who is independent at baseline. Plan: Pt will d/c home via POV when medically stable, [employer] awaiting MD order to discuss walker with pt. [employer] will continue to follow. MAURICE Calhoun
--- NOTE | 2017-05-01 10:55 | PCM.PHAPRO ---
Progress Date of Service: May 01, 2017 INR = 3.19, hct = 33.3, plts = 137. Pt continues on warfarin therapy for afib & aortic valve replacement. Goal INR = 2-3. INR supratherapeutic today. Will hold warfarin dose tonight. Per verbal order from hospitalist, heparin gtt stopped. RN also mentioned blood in pt's urine. INRs ordered. Pharmacy will continue to follow pt's warfarin therapy. Date April 28-April 29-March 30-May 01-Apr INR 1.75 2.04 1.6 1.58 3.19 INR change 0.29 -0.44 -0.02 1.61 Warf Dose 2.5 1.25 4mg x1 4MG HOLD Aleida Mccray S PharmD May 01, 2017 10:55
--- NOTE | 2017-05-01 11:16 | PCM.PNMED ---
Subjective Date of Service May 01, 2017 Subjective Patient notes he still feels weaker than his baseline, overall feels to be improving. That is good. Trying to ambulate more. Has no pain with urination or difficulty breathing. No chest pain noted with deep inspiration at this time. Exam Vital Signs Vital Sign - Last Date Time Temp Pulse Resp B/P Pulse Ox O2 Delivery O2 Flow Rate FiO2 05/01/17 08:34 Supplement Oxygen 05/01/17 05:54 36.7 63 20 162/71 93 04/30/17 07:36 2.00 04/29/17 16:26 94 Intake and Output 04/30/17 04/30/17 05/01/17 Cumulative From/Thru 15:00 23:00 07:00 04/27/17 09:50 - 05/01/17 06:36 Intake Total 2705 ml 992 ml 1308 ml 02620 ml Output Total 4100 ml 1900 ml 24094 ml Balance 2705 ml -3108 ml -592 ml 6242 ml Intake Oral 992 ml 450 ml 3242 ml IV Total 2705 ml 858 ml 49609 ml Output Urine Total 4100 ml 1900 ml 14414 ml # Bowel Movements 0 1 General: Alert, Oriented X3, Cooperative, No Acute Distress Mouth: Mucous Membr Moist/[place] Chest & Lungs: Clear to auscultation & percussion, No adventitious breath sounds Cardiovascular: Other (irregular rhythm with regular rate. ) Abdomen: Non-tender, Non-distended Extremities: No cyanosis/clubbing/edma bilat Neurological: Grossly Neurologically Intact IVs and Medications Medications Reviewed: Medications were reviewed in detail Lab and Diagnostics Result Diagram: 05/01/176 05/01/17415 Microbiology Blood, sputum, and urine culture negative to date Resp PCR negative X-Rays, CTs and MRIs CT angiogram of the chest 1. Small subsegmental pulmonary embolus within the right lower lobe. 2. Right upper lobe nodule; followup is recommended as below. 3. Remote granulomatous disease. 4. Nonobstructing right superior pole nephroliths. 5. Small hiatal hernia. 6. No change in severe T10 compression fracture. 7. Findings discussed with Dr. Jaquez on 04.27.17 at 1012 hrs. Dictated by: Humza Harris M.D. on 04/27/2017 at 10:[address] 1. Cystitis. 2. Multiple urinary bladder diverticula, some of which contain calcifications. 3. Nonobstructing right superior pole nephrolith. 4. Remote granulomatous disease. 5. New small hiatal hernia. 6. Slight increase in size of infrarenal abdominal aortic aneurysm. 7. Normal appendix. 8. No change in severe T10 compression fracture. 9. 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 10. Findings discussed with Dr. Jaquez on 17 at 1011 hrs. Dictated by: Humza Harris M.D. on 04/27/2017 at 10:13 X-RAY CHEST ONE VIEW, PORTABLE IMPRESSION: 1. Right IJ tube tip now projected over the lateral aspect of the mid superior vena cava. 2. Bibasilar atelectasis versus aspiration or pneumonia similar to prior exam. Correlate clinically. Dictated by: Carlo Cho RRA Interpreted: Filiberto Street MD on 04/28/2017 at 8: 49 Transcribed by: GUERA on 04/28/2017 at 8:50 Approved by: Filiberto Street M.D. on 04/28/2017 at 10:28 . Cardiac Echo Impressions Interpretation Summary Left ventricular systolic function is normal with the ejection fraction visually estimated to be 60-65% without focal wall motion abnormalities except for septal motion consistent with a post-operative state. There has been no significant change since the previous study. The right ventricle is not well visualized but grossly appears to be at the upper limits of normal in size with right ventricular systolic function at the lower limits of normal and appears slightly less dynamic compared to the previous study. The right ventricular systolic pressure is estimated at 44 mmHg assuming a right atrial pressure of 8 mm Hg and is likely significantly higher compared to the previous study. There is mild biatrial enlargement but both atria have mildly decreased in size since the prior echo exam. There is a bioprosthetic aortic valve with gradients that are within the normal range for this type of valve with an aortic valve mean gradient of 12 mmHg suggesting the absence of hemodynamically significant valvular aortic stenosis. This is unchanged compared to the previous study. There is mild to moderate tricuspid regurgitation that is more prominent compared to the previous study. The ascending aorta is mildly enlarged but is unchanged compared to the previous study. The patient was in sinus bradycardia with heart rates between 47-57 bpm during the exam which is slower compared to the previous study. Reading Physician:01:45 PM Assessment & Plan 87-year-old male history of single CABG, aortic valve replacement, and A. fib on Coumadin who initially presented with hematuria presented to the emergency department on 04/27 with measured fever, chills, and rigors and found to be in sepsis with shock. Patient had central line placed, pressors have been titrated off with stable hemodynamics. Source of infection remains unclear at this point, as the only clearly abnormal finding is a small degree of cystitis on CT which would seem insufficient to produce his septic shock and grossly elevated procalcitonin. CXR indicative of possible pneumonia, however the patient has no respiratory symptoms. Overall the etiology of his acute septic shock is unclear, but is improving markedly with IV antibiotics 1. Septic shock with elevated lactate; present admission; Resolved -Patient presents with a leukopenia, fever, and tachypnea; presumably secondary to UTI -Lactic acid trending and resolving; initial was 4.1 -MRSA negative -Recheck CBC and CMP, and lactic. -Respiratory PCR negative -S.pneumoniae urine antigen negative -Blood culture no growth @48 hours -Procalcitonin grossly elevated but downtrending -ECHO completed without evidence of valvular pathology 2. Acute hypoxic respiratory failure; present on admission; resolved -Does not use home O2; on supplemental O2 via nasal cannula - Now stable on room air 3. Complicated UTI with hemorrhagic cystitis; present admission; ongoing -Patient presents with gross hematuria and CT evidence of cystitis with urinary bladder diverticula -When using urinal patient has joao bloody urine, but after Bro placement urine is clear -Continue Zosyn -Blood cultures and urine cultures clear -Urology consulted; appreciated recommendations -ID on board and we continue to appreciate their input 4. Chronic A. fib on Coumadin; present admission; ongoing -Initially sub therapeutic upon presentation -Appears that he is in normal sinus rhythm on auscultation -Patient's INR now therapeutic, heparin drip discontinued. -Continue anticoagulation as bleeding appears stopped and H&H are stable 5. Hyperglycemia; present admission; stable -On admit glucose is 120 -Start on low correctional; consider starting Lantus 6. Chronic diastolic heart failure with aortic valve replacement; present admission; stable -Patient also has history of aortic stenosis with a bioprosthetic aortic valve -Hold carvedilol and lisinopril - Continue on Warfarin -ECHO as above with minimal change compared to prior study 7. Very mild respiratory alkalosis; present on admission; improving -Tachypneic with RR 20-30 and pH 7.47 upon presentation -Saturation stable on Nasal cannula -Received fluids 8. Small subsegmental Pulmonary embolus, POA, acute. 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
[2017-05-01 14:03] VITALS: BP 150/81; PULSE 50; RESP 20; O2SAT 92
[2017-05-01 20:09] VITALS: BP 128/44; PULSE 60; RESP 18; O2SAT 93
--- NOTE | 2017-05-02 00:22 | PROG NOTE ---
[address] [address] PROGRESS NOTE PATIENT: YOCASTA TARIQ : 1930 MR#: [id number] ADMIT: 04/27/2017 JOB ID: [id number] INFECTIOUS DISEASE FOLLOWUP: DATE: 05/01/2017 REASON FOR FOLLOWUP: Complicated urinary tract infection with sepsis. INTERVAL HISTORY: Patient has been transferred out of the ICU and is doing much better. He notes he still has pink tinged urine in his Bro bag, but otherwise he has no symptoms. He specifically denies fevers, chills, or sweats. No sore throat, significant cough, or shortness of breath, or abdominal complaints. PHYSICAL EXAMINATION: Reveals an afebrile gentleman. Temperature 36.6, pulse 50, respiratory rate 20, blood pressure 150/81. Saturating well on room air. He looks entirely comfortable and is alert and oriented. Oral cavity negative. Lungs clear. Cardiac tones without new murmur. The abdomen is soft and nontender. He has a Bro that is draining pink tinged fluid. No skin rash. LABORATORY DATA: Labs include a white count which is now all the way down to normal, 6100. Normal diff as well. Creatinine 0.73. Liver function tests normal. Procalcitonin is coming down. It was 57, 31, then 13, and today 7, so it has fallen about by half, but from a very high baseline. On micro, we have no positive cultures. Blood, urine are negative. Imaging includes a chest x-ray done yesterday. Possible aspiration pneumonia is noted again, though pulmonary edema would also make a great deal of sense. IMPRESSION: This patient was septic from a complicated urinary tract infection. He is now much improved though he still has a bit of hematuria. Zosyn is bringing down his very elevated procalcitonin by about 15% per day. I would continue with Zosyn for the time being. Note that this is now his fifth day of appropriate and broad spectrum antibiotics. If the patient stays through the weekend, as I suspect he will, that will complete a week of therapy and he could be switched to ciprofloxacin or levofloxacin for approximately one additional week. Note that these quinolones will interfere with his anticoagulation, however, and he will need to have his prothrombin time checked a couple of times during that week of oral therapy. ID will go ahead and sign off at this time with the recommendation to continue IV Zosyn as long as he is here, then switch to levofloxacin or ciprofloxacin to complete a two week course after discharge, which will extend for about one week after he leaves, with at least two measurements of prothrombin time during that period to make sure that he does not have any over anticoagulation problems.
[2017-05-02 04:13] VITALS: BP 129/66; PULSE 56; RESP 18; O2SAT 91
[2017-05-02 06:11] LABS: BASOPHILS % (AUTO) 0.5 % (0-3); EOSINOPHILS % (AUTO) 2.9 % (0-5); MONOCYTES % (AUTO) 8.8 % (4-12); Mean Corpuscular Hemoglobin 31.2 pg (27.0-35.0); Mean Corpuscular Volume 96.4 fL (81-100); NEUTROPHILS % (AUTO) 65.8 % (40-74); Platelet Count 162 bil/L (150-400)
--- NOTE | 2017-05-02 06:18 | NUR ---
Uneventful Night Pt slept well all night, woke a few times to use BR but reports feeling well rested this morning.
[2017-05-02 06:28] LABS: INR 1.91 ratio
[2017-05-02] MEDS: Piperacillin-Tazo 3.375 Gm Inj 3.375 GM in Dextrose 5% Minibag Plus 50 ML IV SCH ×2 (07:59→17:49)
[2017-05-02] MEDS: 0.9% Sodium Chloride 1,000 ML IV SCH (07:59)
--- NOTE | 2017-05-02 11:30 | NUR ---
SHONNA signed. MAURICE Turner
--- NOTE | 2017-05-02 14:37 | PCM.PNMED ---
Subjective Date of Service May 02, 2017 Subjective Overall patient's feeling much improved. Still feeling weaker than his baseline but continues to improve daily. He denies any fever chills over the past few days. He has normal stool as well as bladder functioning. He denies any chest pains palpitations or other complaints. Exam Vital Signs Vital Sign - Last Date Time Temp Pulse Resp B/P Pulse Ox O2 Delivery O2 Flow Rate FiO2 05/02/17 08:09 Supplement Oxygen 05/02/17 04:13 36.8 56 18 129/66 91 04/30/17 07:36 2.00 04/29/17 16:26 94 Intake and Output 05/01/17 05/01/17 05/02/17 Cumulative From/Thru 15:00 23:00 07:00 04/27/17 09:50 - 05/02/17 04:15 Intake Total 2256 ml 200 ml 48101 ml Output Total 2800 ml 550 ml 47033 ml Balance -544 ml -350 ml 5348 ml Intake Oral 1036 ml 200 ml 4478 ml IV Total 1220 ml 16119 ml Output Urine Total 2800 ml 550 ml 32781 ml # Bowel Movements 1 Exam General: Alert, Oriented X3, Cooperative, No Acute Distress Mouth: Mucous Membrane Moist/[place] Chest & Lungs: Clear to auscultation & percussion, No adventitious breath sounds Cardiovascular: Irregular rhythm with regular rate. Abdomen: Non-tender, Non-distended Extremities: No cyanosis/clubbing, trace edema lower extremities. Neurological: Grossly Neurologically Intact IVs and Medications Medications Reviewed: Medications were reviewed in detail Lab and Diagnostics Result Diagram: 05/02/17 0550 05/02/17 0550 Microbiology Blood, sputum, and urine culture negative to date Resp PCR negative X-Rays, CTs and MRIs CT angiogram of the chest 1. Small subsegmental pulmonary embolus within the right lower lobe. 2. Right upper lobe nodule; followup is recommended as below. 3. Remote granulomatous disease. 4. Nonobstructing right superior pole nephroliths. 5. Small hiatal hernia. 6. No change in severe T10 compression fracture. 7. Findings discussed with Dr. Jaquez on 04.27.17 at 1012 hrs. Dictated by: Humza Harris M.D. on 04/27/2017 at 10:[address] 1. Cystitis. 2. Multiple urinary bladder diverticula, some of which contain calcifications. 3. Nonobstructing right superior pole nephrolith. 4. Remote granulomatous disease. 5. New small hiatal hernia. 6. Slight increase in size of infrarenal abdominal aortic aneurysm. 7. Normal appendix. 8. No change in severe T10 compression fracture. 9. 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 10. Findings discussed with Dr. Jaquez on 17 at 1011 hrs. Dictated by: Humza Harris M.D. on 04/27/2017 at 10:13 X-RAY CHEST ONE VIEW, PORTABLE IMPRESSION: 1. Right IJ tube tip now projected over the lateral aspect of the mid superior vena cava. 2. Bibasilar atelectasis versus aspiration or pneumonia similar to prior exam. Correlate clinically. Dictated by: Carlo Coh RRA Interpreted: Filiberto Street MD on 04/28/2017 at 8: 49 Transcribed by: GUERA on 04/28/2017 at 8:50 Approved by: Filiberto Street M.D. on 04/28/2017 at 10:28 . Cardiac Echo Impressions Interpretation Summary Left ventricular systolic function is normal with the ejection fraction visually estimated to be 60-65% without focal wall motion abnormalities except for septal motion consistent with a post-operative state. There has been no significant change since the previous study. The right ventricle is not well visualized but grossly appears to be at the upper limits of normal in size with right ventricular systolic function at the lower limits of normal and appears slightly less dynamic compared to the previous study. The right ventricular systolic pressure is estimated at 44 mmHg assuming a right atrial pressure of 8 mm Hg and is likely significantly higher compared to the previous study. There is mild biatrial enlargement but both atria have mildly decreased in size since the prior echo exam. There is a bioprosthetic aortic valve with gradients that are within the normal range for this type of valve with an aortic valve mean gradient of 12 mmHg suggesting the absence of hemodynamically significant valvular aortic stenosis. This is unchanged compared to the previous study. There is mild to moderate tricuspid regurgitation that is more prominent compared to the previous study. The ascending aorta is mildly enlarged but is unchanged compared to the previous study. The patient was in sinus bradycardia with heart rates between 47-57 bpm during the exam which is slower compared to the previous study. Reading Physician:01:45 PM Assessment & Plan 87-year-old male history of single CABG, aortic valve replacement, and A. fib on Coumadin who initially presented with hematuria presented to the emergency department on 04/27 with measured fever, chills, and rigors and found to be in sepsis with shock. Patient had central line placed, pressors have been titrated off with stable hemodynamics. Source of infection remains unclear at this point, as the only clearly abnormal finding is a small degree of cystitis on CT which would seem insufficient to produce his septic shock and grossly elevated procalcitonin. CXR indicative of possible pneumonia, however the patient has no respiratory symptoms. Overall the etiology of his acute septic shock is unclear, but is improving markedly with IV antibiotics 1. Septic shock with elevated lactate; present admission; Resolved -Patient presents with a leukopenia, fever, and tachypnea; presumably secondary to UTI -Lactic acid trending and resolving; initial was 4.1 -MRSA negative -Recheck CBC and CMP, and lactic. -Respiratory PCR negative -S.pneumoniae urine antigen negative -Blood culture no growth @48 hours -Procalcitonin grossly elevated but downtrending -ECHO completed without evidence of valvular pathology - Patient is hemodynamically stable today we will remove central line in addition trial off intravenous fluid therapy. 2. Acute hypoxic respiratory failure; present on admission; resolved -Does not use home O2; on supplemental O2 via nasal cannula - Now stable on room air 3. Complicated UTI with hemorrhagic cystitis; present admission; ongoing -Patient presents with gross hematuria and CT evidence of cystitis with urinary bladder diverticula -When using urinal patient has joao bloody urine, but after Bro placement urine is clear -Continue Zosyn -Blood cultures and urine cultures clear -Urology consulted; appreciated recommendations -ID has now signed off with recommendation of Zosyn through the rest of patient' s hospital stay, ideally through weekend but potentially sooner he may be transitioned to oral antibiotics for discharge. 4. Chronic A. fib on Coumadin; present admission; ongoing -Initially sub therapeutic upon presentation -Appears that he is in normal sinus rhythm on auscultation -Patient's INR now therapeutic, heparin drip discontinued. -Continue anticoagulation as bleeding appears stopped and H&H are stable 5. Hyperglycemia; present admission; stable -On admit glucose is 120 -Start on low correctional; consider starting Lantus her blood sugars continue to elevate with advancement of diet. 6. Chronic diastolic heart failure with aortic valve replacement; present admission; stable -Patient also has history of aortic stenosis with a bioprosthetic aortic valve -Hold carvedilol and lisinopril - Continue on Warfarin -ECHO as above with minimal change compared to prior study 7. Very mild respiratory alkalosis; present on admission; improving -Tachypneic with RR 20-30 and pH 7.47 upon presentation -Saturation stable on Nasal cannula -Received fluids 8. Small subsegmental Pulmonary embolus, POA, acute. 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
[2017-05-02 17:36] VITALS: BP 154/69; PULSE 95; RESP 18; O2SAT 96
--- NOTE | 2017-05-02 19:25 | NUR ---
Urine : Patients Bro cath is draining to gravity. Patients urine is becoming more yellow and less pink. Patient continue to be on IV fluids with a 2400 ml output of urine for this shift.
[2017-05-02 20:42] VITALS: BP 117/61; PULSE 60; RESP 22; O2SAT 93
[2017-05-03] MEDS: Piperacillin-Tazo 3.375 Gm Inj 3.375 GM in Dextrose 5% Minibag Plus 50 ML IV SCH ×3 (00:44→15:26)
[2017-05-03 04:48] VITALS: BP 135/71; PULSE 59; RESP 20; O2SAT 93
[2017-05-03 05:26] LABS: BASOPHILS % (AUTO) 0.4 % (0-3); EOSINOPHILS % (AUTO) 2.9 % (0-5); MONOCYTES % (AUTO) 7.4 % (4-12); Mean Corpuscular Hemoglobin 31.4 pg (27.0-35.0); Mean Corpuscular Volume 94.8 fL (81-100); NEUTROPHILS % (AUTO) 66.4 % (40-74); Platelet Count 181 bil/L (150-400)
--- NOTE | 2017-05-03 06:24 | NUR ---
Large BM Pt up to BR and had large BM.
--- NOTE | 2017-05-03 11:59 | PCM.PNMED ---
Subjective Date of Service May 03, 2017 Subjective He is doing well this morning, seems to feel stronger, ambulating more yesterday afternoon. Central line removed without complication yesterday as well, intravenous fluids discontinued. Exam Vital Signs Vital Sign - Last Date Time Temp Pulse Resp B/P Pulse Ox O2 Delivery O2 Flow Rate FiO2 05/03/17 09:00 Supplement Oxygen 05/03/17 04:48 36.7 59 20 135/71 93 04/30/17 07:36 2.00 04/29/17 16:26 94 Intake and Output 05/02/17 05/02/17 05/03/17 Cumulative From/Thru 15:00 23:00 07:00 04/27/17 09:50 - 05/03/17 04:57 Intake Total 1092 ml 350 ml 93624 ml Output Total 1725 ml 95633 ml Balance 1092 ml -1375 ml 5065 ml Intake Oral 350 ml 4828 ml IV Total 1092 ml 05678 ml Output Urine Total 1725 ml 92631 ml # Bowel Movements 1 Exam General: Alert, Oriented X3, Cooperative, No Acute Distress Mouth: Mucous Membrane Moist/[place] Neck supple Central line removed Chest & Lungs: Clear to auscultation & percussion, No adventitious breath sounds Cardiovascular: Irregular rhythm with regular rate. Abdomen: Non-tender, Non-distended Extremities: No cyanosis/clubbing, trace edema lower extremities. Neurological: Grossly Neurologically Intact IVs and Medications Medications Reviewed: Medications were reviewed in detail Lab and Diagnostics Result Diagram: 05/03/17 0515 05/03/17 0515 Microbiology Blood, sputum, and urine culture negative to date Resp PCR negative X-Rays, CTs and MRIs CT angiogram of the chest 1. Small subsegmental pulmonary embolus within the right lower lobe. 2. Right upper lobe nodule; followup is recommended as below. 3. Remote granulomatous disease. 4. Nonobstructing right superior pole nephroliths. 5. Small hiatal hernia. 6. No change in severe T10 compression fracture. 7. Findings discussed with Dr. Jaquez on 04.27.17 at 1012 hrs. Dictated by: Humza Harris M.D. on 04/27/2017 at 10:[address] 1. Cystitis. 2. Multiple urinary bladder diverticula, some of which contain calcifications. 3. Nonobstructing right superior pole nephrolith. 4. Remote granulomatous disease. 5. New small hiatal hernia. 6. Slight increase in size of infrarenal abdominal aortic aneurysm. 7. Normal appendix. 8. No change in severe T10 compression fracture. 9. 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 10. Findings discussed with Dr. Jaquez on 04.27.17 at 1011 hrs. Dictated by: Humza Harris M.D. on 04/27/2017 at 10:13 X-RAY CHEST ONE VIEW, PORTABLE IMPRESSION: 1. Right IJ tube tip now projected over the lateral aspect of the mid superior vena cava. 2. Bibasilar atelectasis versus aspiration or pneumonia similar to prior exam. Correlate clinically. Dictated by: Carlo Cho RR Interpreted: Filiberto Street MD on 04/28/2017 at 8: 49 Transcribed by: GUERA on 04/28/2017 at 8:50 Approved by: Filiberto Street M.D. on 04/28/2017 at 10:28 . Cardiac Echo Impressions Interpretation Summary Left ventricular systolic function is normal with the ejection fraction visually estimated to be 60-65% without focal wall motion abnormalities except for septal motion consistent with a post-operative state. There has been no significant change since the previous study. The right ventricle is not well visualized but grossly appears to be at the upper limits of normal in size with right ventricular systolic function at the lower limits of normal and appears slightly less dynamic compared to the previous study. The right ventricular systolic pressure is estimated at 44 mmHg assuming a right atrial pressure of 8 mm Hg and is likely significantly higher compared to the previous study. There is mild biatrial enlargement but both atria have mildly decreased in size since the prior echo exam. There is a bioprosthetic aortic valve with gradients that are within the normal range for this type of valve with an aortic valve mean gradient of 12 mmHg suggesting the absence of hemodynamically significant valvular aortic stenosis. This is unchanged compared to the previous study. There is mild to moderate tricuspid regurgitation that is more prominent compared to the previous study. The ascending aorta is mildly enlarged but is unchanged compared to the previous study. The patient was in sinus bradycardia with heart rates between 47-57 bpm during the exam which is slower compared to the previous study. Reading Physician:01:45 PM Assessment & Plan 87-year-old male history of single CABG, aortic valve replacement, and A. fib on Coumadin who initially presented with hematuria presented to the emergency department on 04/27 with measured fever, chills, and rigors and found to be in sepsis with shock. Patient had central line placed, pressors have been titrated off with stable hemodynamics. Source of infection remains unclear at this point, as the only clearly abnormal finding is a small degree of cystitis on CT which would seem insufficient to produce his septic shock and grossly elevated procalcitonin. CXR indicative of possible pneumonia, however the patient has no respiratory symptoms. Overall the etiology of his acute septic shock is unclear, but is improving markedly with IV antibiotics 1. Septic shock with elevated lactate; present admission; Resolved -Patient presents with a leukopenia, fever, and tachypnea; presumably secondary to UTI -Lactic acid trending and resolving; initial was 4.1 -MRSA negative -Recheck CBC and CMP, and lactic. -Respiratory PCR negative -S.pneumoniae urine antigen negative -Blood culture no growth @48 hours -Procalcitonin grossly elevated but downtrending -ECHO completed without evidence of valvular pathology - Patient is hemodynamically stable, central line catheter without complication 2. Acute hypoxic respiratory failure; present on admission; resolved -Does not use home O2; on supplemental O2 via nasal cannula - Now stable on room air 3. Complicated UTI with hemorrhagic cystitis; present admission; ongoing -Patient presents with gross hematuria and CT evidence of cystitis with urinary bladder diverticula -When using urinal patient has joao bloody urine, but after Bro placement urine is clear -Continue Zosyn -Blood cultures and urine cultures clear -Urology consulted; appreciated recommendations -ID has now signed off with recommendation of Zosyn through the rest of patient' s hospital stay, ideally through weekend but potentially sooner he may be transitioned to oral antibiotics for discharge. - Anticipate discharge home in a.m. transitioned oral antibiotics for one additional week. 4. Chronic A. fib on Coumadin; present admission; ongoing -Initially sub therapeutic upon presentation -Appears that he is in normal sinus rhythm on auscultation -Patient's INR now therapeutic, heparin drip discontinued. -Continue anticoagulation as bleeding appears stopped and H&H are stable 5. Hyperglycemia; present admission; stable -On admit glucose is 120 -Start on low correctional; consider starting Lantus her blood sugars continue to elevate with advancement of diet. 6. Chronic diastolic heart failure with aortic valve replacement; present admission; stable -Patient also has history of aortic stenosis with a bioprosthetic aortic valve -Hold carvedilol and lisinopril - Continue on Warfarin -ECHO as above with minimal change compared to prior study 7. Very mild respiratory alkalosis; present on admission; improving -Tachypneic with RR 20-30 and pH 7.47 upon presentation -Saturation stable on room air, following oxygen supplementation via nasal cannula needed on admission. -Received fluids; now discontinued 8. Small subsegmental Pulmonary embolus, POA, acute. 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
--- NOTE | 2017-05-03 14:06 | NUR ---
Social Work-readiness for discharge: Data:EMR reviewed. Pt is on day 6 of hospitalization for sepsis per H&P. Pt is not medically stable anticipate tomorrow. PT has seen pt and cleared pt for home, recommending Fww. SW received MD order for assistance with Fww. SW followed up with pt at bedside to discuss, SW role explained. Pt states his children are working on this for him. SW requested to call his family and pt declined stating they will be in later today. SW continue to go by room, but no family present. SW will continue to follow. Assessment:Pt who would benefit from Fww. Plan:Pt to discharge home when medically stable via POV. SW attempted to arrange fww for pt, but pt states his family is already working on this. SW will continue to follow. MAURICE Turner Addendum: 05/03/17 at 1608 by ALVINA FLORENCE SS PHILIP followed up again with pt at bedside, PHILIP role explained. Pt states his family is coming in this evening and he will speak with them about fww. PHILIP explained about moving forward with having insurance pay for this. Pt states he would prefer to pay for this out of pocket. PHILIP explained cost of walker. PHILIP explained that SW could call around tomorrow and get costs as well. SW to follow up with pt in the morning to determine out come of discussion with family.Pt continues to decline having SW call his family. MAURICE Turner
[2017-05-03 14:33] VITALS: BP 155/71; PULSE 68; RESP 20; O2SAT 96
--- NOTE | 2017-05-03 18:16 | NUR ---
Voiding/Activity: Patients Bro cath was D/Cd at 1100 and he voided in the toilet at 1445 without issues. Patient has been sitting in his chair for much of the day.
[2017-05-03 20:18] VITALS: BP 144/62; PULSE 63; RESP 20; O2SAT 93
[2017-05-04] MEDS: Piperacillin-Tazo 3.375 Gm Inj 3.375 GM in Dextrose 5% Minibag Plus 50 ML IV SCH ×2 (00:37→09:07)
[2017-05-04 04:46] VITALS: BP 147/75; PULSE 63; RESP 18; O2SAT 93
--- NOTE | 2017-05-04 06:04 | NUR ---
In-Out Cath At end of shift Pt told this RN that he had not been able to urinate since 1am. Pt said that the last time he voided was at HS, and that he woke up at 1am and could not void and ended up going back to sleep. Pt tried for several minutes again with this RN to void with no success. Bladder scan showed 625ml. paged and ordered in out cath. Pt had voided 150 ml in the time that this RN paged MD but was unable to void any more. This RN performed in-out catheterization using sterile technique. Pt tolerated well and 500ml of normal colored urine was drained.
[2017-05-04 06:30] LABS: INR 2.19 ratio
--- NOTE | 2017-05-04 10:55 | NUR ---
Social Work-readiness for discharge: Data:EMR Reviewed. Pt is on day 7 of hospitalization for sepsis per H&P. Pt is likely medically stable later today or tomorrow. PT has cleared pt for home with no needs except for Fww. SW followed up with pt today. Pt states he spoke with his daughter Kadie and she has obtained a fww for pt and will bring this in later this afternoon. No other discharge needs at this time. SW will continue to follow. Assessment:Pt who is independent at baseline. Plan:Pt to discharge home when medically stable via pOV. Daughter has obtained a Fww for pt. SW will continue to follow. MAURICE Turner
--- NOTE | 2017-05-04 11:03 | PCM.DC.MED ---
Discharge Summary Date of Service May 04, 2017 Dates of Hospitalization Date of Hospital Admission April 27, 2017 at 11:04 Date of Discharge: May 04, 2017 Providers: Admitting Physician: Remy Foss MD Primary Care Physician: Ward Avila MD Attending Physician: Remy Foss MD Diagnosis at Time of Discharge Diagnosis at Time of Discharge 1. Septic shock with elevated lactate; present admission; Resolved 2. Acute hypoxic respiratory failure; present on admission; resolved 3. Complicated UTI with hemorrhagic cystitis; present admission; ongoing 4. Chronic A. fib on Coumadin; present admission; ongoing 5. Hyperglycemia; present admission; stable 6. Chronic diastolic heart failure with aortic valve replacement; present admission; stable 7. Small subsegmental Pulmonary embolus, POA, acute. Active Consultations Infectious disease: Dr. Saldana Procedures XRay, CTs & MRIs CT angiogram of the chest 1. Small subsegmental pulmonary embolus within the right lower lobe. 2. Right upper lobe nodule; followup is recommended as below. 3. Remote granulomatous disease. 4. Nonobstructing right superior pole nephroliths. 5. Small hiatal hernia. 6. No change in severe T10 compression fracture. 7. Findings discussed with Dr. Jaquez on 04.27.17 at 1012 hrs. Dictated by: Humza Harris M.D. on 04/27/2017 at 10:[address] 1. Cystitis. 2. Multiple urinary bladder diverticula, some of which contain calcifications. 3. Nonobstructing right superior pole nephrolith. 4. Remote granulomatous disease. 5. New small hiatal hernia. 6. Slight increase in size of infrarenal abdominal aortic aneurysm. 7. Normal appendix. 8. No change in severe T10 compression fracture. 9. 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 10. Findings discussed with Dr. Jaquez on 04.27.17 at 1011 hrs. Dictated by: Humza Harris M.D. on 04/27/2017 at 10:13 X-RAY CHEST ONE VIEW, PORTABLE IMPRESSION: 1. Right IJ tube tip now projected over the lateral aspect of the mid superior vena cava. 2. Bibasilar atelectasis versus aspiration or pneumonia similar to prior exam. Correlate clinically. Dictated by: Carlo Cho RRA Interpreted: Filiberto Street MD on 04/28/2017 at 8: 49 Transcribed by: GUERA on 04/28/2017 at 8:50 Approved by: Filiberto Street M.D. on 04/28/2017 at 10:28 . Cardiac Echo Impression Interpretation Summary Left ventricular systolic function is normal with the ejection fraction visually estimated to be 60-65% without focal wall motion abnormalities except for septal motion consistent with a post-operative state. There has been no significant change since the previous study. The right ventricle is not well visualized but grossly appears to be at the upper limits of normal in size with right ventricular systolic function at the lower limits of normal and appears slightly less dynamic compared to the previous study. The right ventricular systolic pressure is estimated at 44 mmHg assuming a right atrial pressure of 8 mm Hg and is likely significantly higher compared to the previous study. There is mild biatrial enlargement but both atria have mildly decreased in size since the prior echo exam. There is a bioprosthetic aortic valve with gradients that are within the normal range for this type of valve with an aortic valve mean gradient of 12 mmHg suggesting the absence of hemodynamically significant valvular aortic stenosis. This is unchanged compared to the previous study. There is mild to moderate tricuspid regurgitation that is more prominent compared to the previous study. The ascending aorta is mildly enlarged but is unchanged compared to the previous study. The patient was in sinus bradycardia with heart rates between 47-57 bpm during the exam which is slower compared to the previous study. Reading Physician:01:45 PM Brief History 87-year-old male with a history of CAD and single-vessel CABG, aortic stenosis with valve replacement, atrial flutter on Coumadin, bladder diverticula, and multiple UTIs with hematuria presents to the emergency department due to ongoing hematuria, chills, rigors, general malaise. Patient presented initially on 528 due to hematuria but lacks signs of systemic infection. Urine at that time was negative for nitrite, small amount of leukocyte esterase, a few bacteria. Patient was sent home and before being able to leave the [facility] he began having a "tightening of my entire body," with onset of chills and rigors. Patient also endorses urinary frequency, urgency, dysuria, and gross hematuria. Patient denies fever, trouble starting or stopping urination, diarrhea, cough, chest pain, shortness of breath, or abdominal pain. Patient states that has known regular UTIs that presented with hematuria. Emergency department patient underwent CT angiogram of the chest which showed a small subsegmental PE in the right lower lobe and a nonobstructing right superior pole nephrolith. On CT of the abdomen as noted the patient has cystitis as well as multiple urinary bladder diverticula some calcifications. Patient's blood pressures were found to go from 113/59-87/53, patient was febrile to 39.4, respirations were in the mid to upper 30s. Patient was started on levophed through a peripheral line and bolused multiple liters. Once he reached for patient had an IJ central line placed, and the report is in the chart. Patient's white count dropped from 5.8 yesterday to 2.0 today with pain moderate left shift. Otherwise his CBC was normal. Patient's CMP was abnormal for low bicarbonate. Otherwise unremarkable. Lactic S was elevated at 4.1 and has trended down with the menstruation fluids. Procalcitonin is initially 0.1. Repeat urine showed joao bloody urine was positive for nitrite but negative for leukocyte esterase. Hospital Course 1. Septic shock with elevated lactate; present admission; Resolved -Patient presented with a leukopenia, fever, and tachypnea; presumably secondary to UTI -Lactic acid trended downward and resolved; initial was 4.1 -MRSA negative -Respiratory PCR negative -S.pneumoniae urine antigen negative -Blood culture no growth @48 hours -Procalcitonin grossly elevated but downtrended -ECHO completed without evidence of valvular pathology - Patient is hemodynamically stable, central line catheter without complication which was reomoved prior to discharge 2. Acute hypoxic respiratory failure; present on admission; resolved -Does not use home O2; on supplemental O2 via nasal cannula - Now stable on room air 3. Complicated UTI with hemorrhagic cystitis; present admission; ongoing -Patient presents with gross hematuria and CT evidence of cystitis with urinary bladder diverticula -When using urinal patient has joao bloody urine, but after Bro placement urine is clear -Continue Zosyn -Blood cultures and urine cultures clear/negative -ID has now signed off with recommendation of Zosyn through the rest of patient' s hospital stay, ideally through weekend but potentially sooner he may be transitioned to oral antibiotics for discharge. - Anticipate discharge home with one additional week of ciprofloxacin 500 mg by mouth twice a day 4. Chronic A. fib on Coumadin; present admission; ongoing -Initially sub therapeutic upon presentation -Appears that he is in normal sinus rhythm on auscultation -Patient's INR now therapeutic, heparin drip discontinued. -Continued anticoagulation as bleeding appeared stopped and H&H are stable 5. Hyperglycemia; present admission; stable -On admit glucose is 120 -Start on low correctional; consider starting Lantus her blood sugars continue to elevate with advancement of diet. - Home medications restarted on discharge. 6. Chronic diastolic heart failure with aortic valve replacement; present admission; stable -Patient also has history of aortic stenosis with a bioprosthetic aortic valve -Hold carvedilol and lisinopril - Continue on Warfarin, therapeutic on day of discharge -ECHO as above with minimal change compared to prior study 7. Very mild respiratory alkalosis; present on admission; improving -Tachypneic with RR 20-30 and pH 7.47 upon presentation -Saturation stable on room air, following oxygen supplementation via nasal cannula needed on admission. -Received fluids; now discontinued 8. Small subsegmental Pulmonary embolus, POA, acute. Active -Patient without respiratory symptoms or pain with deep inspiration -Heparin drip DC"d with therapeutic INR as noted above -Continue to monitor INR, treatment for afebrile overlap with treatment for the small PEs. Respiratory function entirely stable at time of discharge as noted above. Exam Vital Signs (Last) Date Time Temp Pulse Resp B/P Pulse Ox O2 Delivery O2 Flow Rate FiO2 05/04/17 04:46 36.6 63 18 147/75 93 Room Air 04/30/17 07:36 2.00 04/29/17 16:26 94 Exam General: Alert, Oriented X3, Cooperative, No Acute Distress Mouth: Mucous Membrane Moist/[place] Neck supple Central line removed Chest & Lungs: Clear to auscultation & percussion, No adventitious breath sounds Cardiovascular: Irregular rhythm with regular rate. Abdomen: Non-tender, Non-distended Extremities: No cyanosis/clubbing, trace edema lower extremities. Neurological: Grossly Neurologically Intact Test 04/27/17 09:20 04/27/17 10:00 04/27/17 14:30 04/27/17 15:00 Troponin T 0.010ug/L (0.0-0.011) Pro-B-Type Natriuretic Peptide 449.6pg/mL (0-486) Urine Culture Reflexed Indicated Urine Color Yellow (YELLOW) Urine Appearance Hazy (CLEAR,HAZY) Urine pH 7.5 (5.0-8.0) Urine Specific [place] 1.010 (1.003-1.035) Urine Protein Negativemg/dL (NEG,TRACE) Urine Glucose (UA) Negativemg/dL (NEGATIVE) Urine Ketones Negativemg/dL (NEGATIVE) Urine Occult Blood Moderate (NEGATIVE) Urine Nitrite Positive (NEGATIVE) Urine Bilirubin Negative (NEGATIVE) Urine Urobilinogen Normalmg/dL (NORMAL) Urine Leukocyte Esterase Small (NEGATIVE) Urine RBC 3-10/hpf (0-2) Urine WBC 0-5/hpf (0-5) Urine Epithelial Cells Few/hpf (NONE-MOD) Urine Crystals None seen (NONE SEEN) Urine Bacteria Few/hpf (NONE-FEW) Urine Hyaline Casts None/lpf (NONE) Urine Granular Casts None seen (NONE SEEN) Urine Waxy Casts None seen (NONE SEEN) Urine Red Blood Cell Casts None seen (NONE SEEN) Urine White Blood Cell Casts None seen (NONE SEEN) Urine Mucus None seen (None Seen) Urine Trichomonas None seen (NONE SEEN) Urine Yeast None (NONE SEEN) Urinalysis Comment None Urine Legionella pneumophilia Ag Negative (Negative) Hold Purple Top Tube Received (Received) Lactic Acid Level 1.1mmol/L (0.4-2.0) Hold [place] Top Tube Received (Received) Test 04/30/17 06:05 05/01/17 04:16 05/03/17 05:15 05/04/17 05:30 Prealbumin 16mg/dL (20-40) Activated Partial Thromboplast Time 66.9sec (22.8-33.0) Phosphorus Level 2.4mg/dL (2.5-4.9) Magnesium Level 1.8mg/dL (1.6-2.6) Total Bilirubin 0.7mg/dL (0.0-1.2) Aspartate Amino Transf (AST/SGOT) 13U/L (0-50) Alanine Aminotransferase (ALT/SGPT) 10U/L (0-44) Alkaline Phosphatase 64U/L (25-160) Total Protein 5.4g/dL (6.4-8.4) Albumin 2.6g/dL (3.4-5.0) Procalcitonin 6.87ng/mL (0.00-0.08) White Blood Count 7.5th/mm3 (3.8-10.1) Red Blood Count 3.63mil/mm3 (4.40-5.80) Hemoglobin 11.4g/dL (13.8-17.2) Hematocrit 34.4% (41.0-50.0) Mean Corpuscular Volume 94.8fL (81-100) Mean Corpuscular Hemoglobin 31.4pg (27.0-35.0) Mean Corpuscular Hemoglobin Concent 33.1% (32.0-37.0) Red Cell Distribution Width 14.8% (12.3-15.4) Platelet Count 181bil/L (150-400) Neutrophils (%) (Auto) 66.4% (40-74) Lymphocytes (%) (Auto) 20.2% (14-46) Monocytes (%) (Auto) 7.4% (4-12) Eosinophils (%) (Auto) 2.9% (0-5) Basophils (%) (Auto) 0.4% (0-3) Sodium Level 140mEq/L (134-144) Potassium Level 3.6mEq/L (3.5-5.2) Chloride Level 106mEq/L (97-108) Carbon Dioxide Level 19mmol/L (18-29) Blood Urea Nitrogen 4mg/dL (8-27) Creatinine 0.70mg/dL (0.76-1.27) Estimat Glomerular Filtration Rate 114mL/min (>59) Glucose Level 104mg/dL (60-99) Calcium Level 7.7mg/dL (8.5-10.1) Prothrombin Time 23.8sec (8.1-12.5) Prothromb Time International Ratio 2.19ratio Microbiology Results Blood, sputum, and urine culture negative to date Resp PCR negative Discharge Medications Discharge Medications Carvedilol (Carvedilol) 3.125 Mg Tablet 3.125 MG PO BID (Reported) Cephalexin (Keflex) 500 Mg Capsule 500 MG PO QID Prescribed by: CAL PADRON DO Lisinopril (Lisinopril) 20 Mg Tablet 20 MG PO DAILY (Reported) Lovastatin (Lovastatin) 40 Mg Tablet 40 MG PO HS (Reported) Tamsulosin ER (Tamsulosin ER) 0.4 Mg Cap.er.24h 0.8 MG PO DAILY (Reported) Warfarin Sodium (Warfarin Sodium) 2.5 Mg Tablet 2.5 MG PO Salazar,Mo,We,Fri, Sa ( Reported) Warfarin Sodium (Warfarin Sodium) 2.5 Mg Tablet 1.25 MG PO Tue, Thr (Reported) Followup Plan Disposition: Home in stable condition Discharge Diet: No restrictions Discharge Activity: No restrictions Follow-up Provider: Ward Avila MD Follow-up with PCP in: 1 week Time spent 40 minutes copies to: Ward Avila MD, Benjamin P DO May 04, 2017 11:03
--- NOTE | 2017-05-04 11:09 | PCM.PHAPRO ---
Progress RTM RTM RTM 3-Nathen 4-Nathen 5-Nathen 1.91 2.0 2.19 -1.28 0.09 0.19 4 2.5 3 Wayne Moss Pharm.D May 04, 2017 11:09
[2017-05-04] MEDS ORDERED: CIPR-231 PO (11:23)
--- NOTE | 2017-05-04 11:24 | PCM.DIMED ---
Discharge Instructions Date of Service May 04, 2017 Dates of Hospitalization April 27, 2017 at 11:04 Discharge Diagnosis Discharge Diagnosis 1. Septic shock with elevated lactate; present admission; Resolved 2. Acute hypoxic respiratory failure; present on admission; resolved 3. Complicated UTI with hemorrhagic cystitis; present admission; ongoing 4. Chronic A. fib on Coumadin; present admission; ongoing 5. Hyperglycemia; present admission; stable 6. Chronic diastolic heart failure with aortic valve replacement; present admission; stable 7. Small subsegmental Pulmonary embolus, POA, acute. Active Diet Discharge Diet: No restrictions Activity Discharge Activity: No restrictions Patient Instructions Patient Instructions Follow-up with primary care doctor in 1 week to ensure there is no evidence of persistent urinary tract infection and additionally to make sure your INR levels are stable with current dose of warfarin, as these may be affected by antibiotic you are taking currently. Follow-up Provider: Ward Avila MD Follow-up with PCP in: 1 week Juan J Hurd DO May 04, 2017 11:24
--- NOTE | 2017-05-04 11:31 | NUR ---
Social Work- discharge: Data:EMR Reviewed. Pt is on day 7 of hospitalization for sepsis per H&P. Pt is medically stable for discharge. PT has cleared pt for home with no needs except for Fww. Pt states his daughter has obtained Fww for home use. No other discharge needs identified. All updated and agreeable to plan. Assessment:Pt who is independent at baseline. Plan:Pt to discharge home today via POV. Daughter has obtained a Fww for pt. All updated and agreeable to plan. MAURICE Turner
[2017-05-04 13:01] VITALS: BP 121/55; PULSE 62; RESP 20; O2SAT 96
--- NOTE | 2017-05-04 14:14 | NUR ---
Discharge Pt discharged at this time, all belongings gathered and returned to pt. No complains of pain, able to void with no apparent signs of retention. VSS, IV D/Cd intact. Hard copy of new script given to pt to fill. Discharge packet printed and reviewed with pt. Pt aware of upcoming scheduled appt. Pt awaiting ride home from family member. Walker to be brought in by family at time of discharge. Addendum: 05/04/17 at 1607 by JIMMY BRUNSON RN Pt taken from [facility] by leonila GRIFFITH in wheelchair to private vehicle driven by son, for transportation home
== END 2017-05-04 15:43 | disposition home or self-care (01) | DRG 871 ==
LOC: EDBD 09:16 → SED 09:16 → CCU 11:04 → PCC 04-29 14:52 → MPC 04-30 13:14
PROVIDERS: ADMIT Internal Medicine; ATTEND Internal Medicine
PROC: 02HV33Z Insertion of Infusion Device into Superior Vena Cava, Percutaneous Approach (ICD-10-PCS; principal; 2017-04-27)
PROC: 4A033R1 Measurement of Arterial Saturation, Peripheral, Percutaneous Approach (ICD-10-PCS; 2017-04-27)
PROC: 02PYX3Z Removal of Infusion Device from Great Vessel, External Approach (ICD-10-PCS; 2017-04-27)
PROC: 02HV33Z Insertion of Infusion Device into Superior Vena Cava, Percutaneous Approach (ICD-10-PCS; 2017-04-27)
DX: A41.9 Sepsis, unspecified organism (principal); R65.21 Severe sepsis with septic shock; J96.01 Acute respiratory failure with hypoxia; I26.99 Other pulmonary embolism without acute cor pulmonale; N30.01 Acute cystitis with hematuria; E87.3 Alkalosis; I50.32 Chronic diastolic (congestive) heart failure; E87.2 Acidosis; I82.711 Chronic embolism and thrombosis of superficial veins of right upper extremity; I25.10 Atherosclerotic heart disease of native coronary artery without angina pectoris; I10 Essential (primary) hypertension; Z66 Do not resuscitate; Z95.1 Presence of aortocoronary bypass graft; Z87.891 Personal history of nicotine dependence; Z95.2 Presence of prosthetic heart valve; Z79.01 Long term (current) use of anticoagulants; Z87.440 Personal history of urinary (tract) infections; I48.2 Chronic atrial fibrillation; R73.9 Hyperglycemia, unspecified; E83.42 Hypomagnesemia; E83.39 Other disorders of phosphorus metabolism

== ENCOUNTER 2017-06-15 04:08 | Inpatient (IN) | payer MEDICARE ==
[~2017-06-15] VITALS: Ht 188 cm; Wt 96.6 kg
[2017-06-15] VITALS (12 sets, daily range): BP systolic 82–159; BP diastolic 42–95; PULSE 58–130; RESP 18–30; O2SAT 88–98
[~2017-06-15 04:08] MED LIST changes: -AMIO200T PO; +CARV3.122 PO; -CEPH-512 PO; +CIPR-231 PO; +LOVA40TA PO; -MECL-125 PO
[2017-06-15] MEDS ORDERED: 0.9% Sodium Chloride 1,000 ML IV ONE ×2 (04:21→06:25)
--- NOTE | 2017-06-15 04:21 | ED.REPORT ---
HPI-Dyspnea / Wheezing Date of Service Jun 15, 2017 ED Provider: Moustapha Craig MD The pt is an 87 y/o male w/ a hx of CAD, HTN, A-fib and aortic stenosis presenting to the ED via EMS due to SOB. Per EMS, last night the pt was asymptomatic. Prior to being picked up the pt started to become nauseas, and began experiencing SOB and chills. The pt then took some baking soda which helped relieve his SOB for a short period of time. En route albuterol was given for the pt's wheezing. The pt's SaO2 % never shereen about 92% while on 15 L of O2. 4 MG of Zofran was given for nausea as well as 324 MG of aspirin just prior to arrival in the ED. The pt was hospitalized roughly 2 months ago in the ICU for a pulmonary embolism. Nursing Notes Stated Complaint: POSS STEMI Chief Complaint: Respiratory Complaints Nursing Notes Reviewed: Yes Allergies: Coded Allergies: No Known Allergies (Unverified , 04/27/17) Scheduled Carvedilol (Carvedilol) 3.125 Mg Tablet 3.125 MG PO BID Ciprofloxacin (Cipro) 500 Mg Tablet 500 MG PO BID Lisinopril (Lisinopril) 20 Mg Tablet 20 MG PO DAILY Lovastatin (Lovastatin) 40 Mg Tablet 40 MG PO HS Tamsulosin ER (Tamsulosin ER) 0.4 Mg Cap.er.24h 0.8 MG PO DAILY Warfarin Sodium (Warfarin Sodium) 2.5 Mg Tablet 2.5 MG PO Salazar,Mo,We,Fri, Sa Warfarin Sodium (Warfarin Sodium) 2.5 Mg Tablet 1.25 MG PO Tue, Thr General Time Seen by MD: 04:16 Chief Complaint Shortness of breath Hx Obtained From: Patient, EMS Arrived By: Ambulance Sudden in Onset?: Yes Onset Occurred: Just prior to arrival Symptom Duration: Since onset Recent Healthcare: Recent doctor visit, Recent hospitalization Similar Sx Previous: Yes Past Medical History Past Medical History Aortic stenosis Right cephalic vein thrombus Right basilic vein thrombus Right internal jugular thrombus Atrial fibrillation s/p cardioversion DVT Pulmonary embolism UTI Hematuria Reports: Hypertension Past Surgical History Aortic valve replacement Smoking History Former Smoker Social History Other Social History: Local resident Ambulatory Status Independent Review of Systems Constitutional: Reports: Chills Respiratory: Reports: Shortness of breath Complete sys rev & neg: except as marked. GI: Reports: Nausea Physical Exam Initial Vital Signs Vital Signs (First) Date Time Temp Pulse Resp B/P Pulse Ox O2 Delivery O2 Flow Rate FiO2 06/15/17 04:16 38.6 130 30 132/95 88 Room Air 06/15/17 04:44 8 Initial VS: Reviewed, Vital signs abnormal Head / Eyes: Atraumatic, Normocephalic, PERRL ENT: Mucous membranes moist, Conjunctiva normal, No scleral icterus Abdomen / GI: Soft, Non-tender Extremities: Vascular intact, Neuro intact, No swelling, No tenderness Skin: Warm, Dry, No cyanosis Neurologic: Alert, Oriented, Nonfocal Psychiatric: Mood/affect normal, Behavior normal, Normal thought content General/Constitutional: Awake, Alert Distress / Hydration: Positive: Dehydration mild Neck: Atraumatic, Supple, Full range of motion Respiratory / Chest: Atraumatic, Breath sounds NL, Breath sounds = bilat Heart Rate / Rhythm: Positive: Irreg irregular rhythm, Tachycardia R sided peripheral edema No peripheral edema on L side Interpretation & Diagnostics Lab Results Interpretation Result Diagram: 06/15/17 0415 06/15/17 0421 Test 06/15/17 04:15 06/15/17 04:21 06/15/17 04:45 White Blood Count 9.2th/mm3 (3.8-10.1) Red Blood Count 4.81mil/mm3 (4.40-5.80) Hemoglobin 15.3g/dL (13.8-17.2) Hematocrit 46.7% (41.0-50.0) Mean Corpuscular Volume 97.1fL (81-100) Mean Corpuscular Hemoglobin 31.8pg (27.0-35.0) Mean Corpuscular Hemoglobin Concent 32.8% (32.0-37.0) Red Cell Distribution Width 14.4% (12.3-15.4) Platelet Count 204bil/L (150-400) Neutrophils (%) (Auto) 70.0% (40-74) Lymphocytes (%) (Auto) 23.2% (14-46) Monocytes (%) (Auto) 5.6% (4-12) Eosinophils (%) (Auto) 0.8% (0-5) Basophils (%) (Auto) 0.2% (0-3) Lactic Acid Level 3.0mmol/L (0.4-2.0) Prothrombin Time 13.9sec (8.1-12.5) Prothromb Time International Ratio 1.29ratio Sodium Level 142mEq/L (134-144) Potassium Level 4.2mEq/L (3.5-5.2) Chloride Level 103mEq/L (97-108) Carbon Dioxide Level 20mmol/L (18-29) Blood Urea Nitrogen 14mg/dL (8-27) Creatinine 0.94mg/dL (0.76-1.27) Estimat Glomerular Filtration Rate 81mL/min (>59) Glucose Level 113mg/dL (60-99) Calcium Level 9.1mg/dL (8.5-10.1) Magnesium Level 2.0mg/dL (1.6-2.6) Total Bilirubin 0.6mg/dL (0.0-1.2) Aspartate Amino Transf (AST/SGOT) 19U/L (0-50) Alanine Aminotransferase (ALT/SGPT) 12U/L (0-44) Alkaline Phosphatase 106U/L (25-160) Troponin T 0.010ug/L (0.0-0.011) Pro-B-Type Natriuretic Peptide 303.4pg/mL (0-486) Total Protein 7.9g/dL (6.4-8.4) Albumin 4.2g/dL (3.4-5.0) Lipase 49U/L (13-60) Urine Color Yellow (YELLOW) Urine Appearance Clear (CLEAR,HAZY) Urine pH 6.0 (5.0-8.0) Urine Specific [place] 1.025 (1.003-1.035) Urine Protein 30mg/dL (NEG,TRACE) Urine Glucose (UA) Negativemg/dL (NEGATIVE) Urine Ketones Negativemg/dL (NEGATIVE) Urine Occult Blood Moderate (NEGATIVE) Urine Nitrite Negative (NEGATIVE) Urine Bilirubin Negative (NEGATIVE) Urine Urobilinogen Normalmg/dL (NORMAL) Urine Leukocyte Esterase Negative (NEGATIVE) Urine RBC >50/hpf (0-2) Urine WBC 0-5/hpf (0-5) Urine Epithelial Cells Moderate/hpf (NONE-MOD) Urine Crystals None seen (NONE SEEN) Urine Bacteria None/hpf (NONE-FEW) Urine Hyaline Casts None/lpf (NONE) Urine Granular Casts None seen (NONE SEEN) Urine Waxy Casts None seen (NONE SEEN) Urine Red Blood Cell Casts None seen (NONE SEEN) Urine White Blood Cell Casts None seen (NONE SEEN) Urine Mucus None seen (None Seen) Urine Trichomonas None seen (NONE SEEN) Urine Yeast None (NONE SEEN) Urinalysis Comment None Urine Culture Reflexed Not indicated Lab Results Interpretation: Normal white blood count, elevated lactic acid at 3.0 ECG Interpretation ECG Interpretation: Rate 154 Supraventricular tachycardia Repolarization abnormality, prob rate related Time: 04:12 Interpreted by: ED physician ECG Interpretation: Rate 95 Sinus or ectopic atrial rhythm Atrial premature complex Prolonged SC interval Borderline ST depression, anterolateral leads Time: 05:39 Interpreted by: ED physician X-Ray Chest Interpretation Chest Xray Interpretation: Impression: R middle lobe pneumonia View: Portable, 1 view Interpretation / Wet Read by: Wet read ED physician Re-Eval/Medical Decision Med Decision/Clinical Course 87-year-old male with rigor and shaking chills, tachycardia and shortness of breath. He has a right-sided pneumonia, with recent hospitalization. He was hydrated, cultured, and started on health care associated pneumonia antibiotic regimen. He will be admitted to the hospitalist service. Transitional orders are written. Source of Hx: Old records Re-Evaluation/Progress : Time of Eval: 05:52 Re-Evaluation/Progress Note: Pt rechecked. Informed pt of need for admission. Pt understands and agrees with plan for admission. All questions addressed. Consultation : Referral / Consult Name: Abad Bowling MD Consulted With: Hospitalist Call Returned at: 05:50 Acidizer: Will see patient, Agrees with eval, Agrees with plan, Accepts admit Counseled Regarding: Diagnosis, Lab results, Need for admission Discharge & Departure Impression: Primary Impression: Healthcare-associated pneumonia Additional Impression: Sepsis Sepsis type: sepsis due to unspecified organism Qualified Code: A41.9 - Sepsis, unspecified organism Disposition: ADMITTED TO HOSPITAL Discharge Condition All VS Reviewed: Yes Condition: Stable Referrals: Ward Avila MD (PCP) Scribe Attestation Portions of this note were transcribed by Ciro Wright. I, Dr. Craig personally performed the history, physical exam and medical decision-making; I reviewed and confirmed the accuracy of the information in the transcribed note. Signed by : Manoj Ba, 06/15/17 and [id number]. copies to: Ward Avila MD, Howard L MD Jun 15, 2017 04:21 Ciro Wright Jun 15, 2017 04:28
[2017-06-15 04:37] LABS: BASOPHILS % (AUTO) 0.2 % (0-3); EOSINOPHILS % (AUTO) 0.8 % (0-5); MONOCYTES % (AUTO) 5.6 % (4-12); Mean Corpuscular Hemoglobin 31.8 pg (27.0-35.0); Mean Corpuscular Volume 97.1 fL (81-100); Platelet Count 204 bil/L (150-400)
[2017-06-15 04:44] LABS: INR 1.29 ratio
[2017-06-15 04:52] LABS: TROPONIN T 0.01 ug/L (0.0-0.011)
[2017-06-15 05:06] LABS: APPEARANCE,URINE CLEAR (CLEAR,HAZY); COLOR,URINE YELLOW (YELLOW)
[2017-06-15 05:09] LABS: OCCULT BLOOD,URINE MODERATE (NEGATIVE); UROBILINOGEN,URINE NORMAL (NORMAL)
[2017-06-15] MEDS ORDERED: Vancomycin Dose per Pharmacist XX ONE (05:45)
[2017-06-15] MEDS ORDERED: Piperacillin-Tazo 3.375 Gm Inj 3.375 GM in Dextrose 5% Minibag Plus 50 ML IV ONE (05:45)
[2017-06-15] MEDS ORDERED: levoFLOXacin Inj 750 MG in IV Premix 1 EACH IV ONE (05:45)
[2017-06-15] MEDS ORDERED: Vancomycin Inj 2,000 MG in 0.9% Sodium Chloride 500 ML IV ONE (05:55)
[2017-06-15] MEDS ORDERED: Alum-Mag Hydrox-Simeth 30 mL Suspension PO PRN (06:05)
[2017-06-15] MEDS ORDERED: Ondansetron 2 mg/mL 2 mL Inj IVPUSH PRN (06:05)
--- NOTE | 2017-06-15 07:52 | DRSVH ---
PROCEDURE: X-RAY CHEST ONE VIEW, PORTABLE ([id number]) INDICATIONS: fever, chills, dyspnea TECHNIQUE: One view of the chest was acquired. COMPARISON: [facility], CR, XR CHEST 1VW (PORTABLE), 04/30/2017, 5:22. FINDINGS: Surgical changes and devices: Median sternotomy wires. Lungs and pleura: No pleural effusions or pneumothorax. Airspace opacification noted in the right pe rihilar midlung suspicious for pneumonia. Mediastinum: Mediastinal contours appear normal. Heart size is normal. Bones and chest wall: No suspicious bony lesions. Overlying soft tissues appear unremarkable. IMPRESSION: Opacification in the right midlung suspicious for pneumonia. Dictated by: Virginia Cummings MD, PhD on 06/15/2017 at 7:50 Approved by: Virginia Cummings MD, PhD on 06/15/2017 at 7:50
[2017-06-15] MEDS: Piperacillin-Tazo 3.375 Gm Inj 3.375 GM in Dextrose 5% Minibag Plus 50 ML IV SCH ×2 (09:58→16:21)
--- NOTE | 2017-06-15 11:25 | PCM.HPMED ---
Subjective Date of Service Jun 15, 2017 Primary Provider: Admitting Physician: Abad Bowling MD Primary Care Physician: Ward Avila MD Attending Physician: Abad Bowling MD Admit Status: From the Emergency Department, Admit to [facility], [facility] Telemetry Chief Complaint: SOB History of Present Illness: Yasir Gu is an 87 yo male with a history of CAD s/p single-vessel CABG, HTN , A-fib on chronic anticoagulation, diastolic CHF, and aortic stenosis s/p valve replacement presenting to the ED via EMS due to SOB onset prior to arrival. Patient reports that he was in his usual state of health until early this morning. Patient states he had some strawberries and crackers before bed last night, and he woke up with "feeling sick in the stomach." He then gave himself a cup of hot water and baking soda, which is his go-to remedy for any stomach upset. However, after drinking it, he developed severe rigors and shortness of breathe. He was having some nausea en route to the ER, but has not had any nausea or vomiting since. He admits to loose, dark stool x 2 days. He reports that he has been feeling well since the last hospitalization for sepsis due to complicated UTI and pulmonary embolism. Currently, he reports to feel well and denies any SOB, cough CP, orthopnea, dizziness, headache, abdominal pain, or fevers. Per ER report, en route albuterol was given for the pt's wheezing. The patient' s SaO2 % never shereen about 92% while on 15 L of O2. 4 MG of Zofran was given for nausea as well as 324 MG of aspirin just prior to arrival in the ED. Upon arrival, temp 38.6, P 130, RR 30, BP 132/95, Pulse Ox 88% at room air. His BP soon dropped down to 82/50. Patient was put on non-rebreather O2 mask and his pulse ox improved to 96%. CBC and CMP both normal. Lactic acid elevated at 3.0. Procalcitonin 0.05. Urine negative for infection. CXR shows opacification in the right midlung suspicious for pneumonia. Antibiotic initiated with Zosyn and Vanco in the ER with 1L of NS. Review of Systems: A comprehensive ROS was conducted with the patient and is otherwise negative unless stated otherwise in the HPI. Allergies Coded Allergies: No Known Allergies (Unverified , 04/27/17) Home Medications Carvedilol (Carvedilol) 3.125 Mg Tablet 3.125 MG PO BID Lisinopril (Lisinopril) 20 Mg Tablet 20 MG PO DAILY Lovastatin (Lovastatin) 40 Mg Tablet 40 MG PO HS Tamsulosin ER (Tamsulosin ER) 0.4 Mg Cap.er.24h 0.8 MG PO DAILY Warfarin Sodium (Warfarin Sodium) 2.5 Mg Tablet 2.5 MG PO Salazar,Mo,We,Fri, Sa Warfarin Sodium (Warfarin Sodium) 2.5 Mg Tablet 1.25 MG PO Tue, Thr PMH Aortic stenosis Right cephalic vein thrombus Right basilic vein thrombus Right internal jugular thrombus Atrial fibrillation s/p cardioversion DVT Hypertension Surgical History Aortic valve replacement Single-vessel CABG Family History Denies family history of heart disease, diabetes, stroke. Both parents of old age. Social History Hx Alcohol Use: No (occasional beers) Hx Substance Use: No Hx Tobacco Use: Yes Smoking Status: Former Smoker (quit in 1982) Living Arrangement: with Family Additional Information Uses a walker to ambulation at baseline Exam Vital Signs Vital Sign - Last Date Time Temp Pulse Resp B/P Pulse Ox O2 Delivery O2 Flow Rate FiO2 06/15/17 08:30 36.8 97 20 93/49 94 Non-Rebreather 6.00 Intake and Output 06/14/17 06/14/17 06/15/17 Cumulative From/Thru 15:00 23:00 07:00 06/15/17 04:35 - 06/15/17 06:34 Intake Total 2000 ml 2000 ml Balance 2000 ml 2000 ml Intake IV Total 2000 ml 2000 ml Exam General: Alert and oriented x 4, pleasant; no acute distress HEENT: NCAT, PERRLA, EOMI, mucosal membrane dry. Neck: No lymphadenopathy, no JVD. Cardiac: Regular rate and rhythm. III/ systolic murmur noted. Respiratory: Clear to auscultation for the majority of the lung, except rales int the right lower lobe. Normal respiratory effort. Saturating well at 5L Non- rebreather mask. Abdomen: Benign, soft, nondistended, nontender, normoactive bowel sound. Extremities: Trace edema in the lower extremities bilaterally. No clubbing or cyanosis. Psych: Appropriate mood and affect Neuro: Normal speech. Grossly intact; CN II through XII intact. Lab and Diagnostics Result Diagram: 06/15/17 0415 06/15/17 0421 X-Rays, CTs and MRIs PROCEDURE: X-RAY CHEST ONE VIEW, PORTABLE IMPRESSION: Opacification in the right midlung suspicious for pneumonia. Dictated by: Virginia Cummings MD, PhD on 06/15/2017 at 7:50 12-lead ECG ECG Interpretation: Rate 154 Supraventricular tachycardia Repolarization abnormality, prob rate related Time: 04:12 ECG Interpretation: Rate 95 Sinus or ectopic atrial rhythm Atrial premature complex Prolonged AL interval Borderline ST depression, anterolateral leads Time: 05:39 Assessment & Plan 87 yo male with a history of CAD s/p single-vessel CABG, HTN, A-fib on chronic anticoagulation, diastolic CHF, and aortic stenosis s/p valve replacement presenting to the ED via EMS due to SOB onset prior to arrival and was admitted for possible pneumonia. #. Sepsis with elevated lactate; present admission; Improved. -Patient presented with fever, tachynea, tachypnea, and hypotension; presumably secondary to pneumonia. -Trend lactic acid; initial was 3.0, now 2.0. -MRSA screen ordered -S.pneumoniae urine antigen and Legionella antigen negative. Procalcitonin normal. -Blood culture pending. -Patient is hemodynamically stable. Treat the infection as below and follow clinically. -IVF with NS at 125mls/hr. Patient is asymptomatic and is able to maintain MAP > 60. Will consider transferring to CCU for pressor support if his BP drops further. #. Acute hypoxic respiratory failure; present on admission; improved. -Etiology could be due to pneumonia vs. pulmonary embolism. -Wells' Criteria is at least a 6, thus high risk for PE given his history of recent PE and subtherapeutic INR. -Will check CT angio. -Warfarin per pharmacy with Lovenox bridging. -Does not use home O2; on supplemental O2 via non-rebreather mask. No history of COPD or asthma. -Continue with O2 support. #. Possible pneumonia; present admission; ongoing -CXR show possible right middle lobe opacification. -Patient was in the ICU 2 months ago, thus HCAP is suspected. However, given the sudden onset of his symptoms, aspiration pneumonia is also a possibility. -Patient received Zosyn, Vanco, and Levaquin in the ER. -Will continue Zosyn. Will check MRSA and if positive, will add Vanco. -IVF at 125mls/hr. -Blood cultures pending. #. Reported diarrhea, present admission, ongoing. -Patient reports dark, loose stools for the last 2 days. -Patient was on ciprofloxacin 500 mg for pneumonia 2 months ago. -Will check C. diff if patient has diarrhea. #. Chronic A. fib on Coumadin; present admission; ongoing -Initially sub therapeutic upon presentation. Continue with Warfarin per pharmacy with Lovenox bridging. -He is in normal sinus rhythm with controlled rate. Will hold home Carvedilol due to hypotension. -Telemetry #. Chronic diastolic heart failure with aortic valve replacement; present admission; stable. -Patient also has history of aortic stenosis with a bioprosthetic aortic valve. -Hold home carvedilol and lisinopril due to hypotension. -Continue on Warfarin per pharmacy. -Last ECHO in March 2017 showed Left ventricular systolic function is normal with the ejection fraction visually estimated to be 60-65% without focal wall motion abnormalities. The right ventricle is not well visualized but grossly appears to be at the upper limits of normal in size with right ventricular systolic function at the lower limits of normal and appears slightly less dynamic compared to the previous study. -ProBNP 303. #. Recent history of small subsegmental Pulmonary embolus, POA, acute. Active -Patient presents with respiratory symptoms and hypoxia compared to baseline. -Continue Lovenox until INR is therapeutic. -Continue to monitor INR, treatment for afebrile overlap with treatment for the small PEs. Respiratory function entirely stable at time of discharge as noted above. #. Hypertension, chronic. - Patient presents with hypotension. - Will continue with IVF as above. Patient is currently asymptomatic and maintaining MAP around 60s. Will hold all of his blood pressure medication. - Follow clinically. #. Hyperlipidemia, chronic, stable. -Resume home Lovastatin. #. History of BPH, chronic, stable. -Resume home Tamsulosin. Patient is admitted under inpatient status with expected length of stay greater than 2 midnights due to severity of his symptoms and complexity of the treatment plan. Dispo: anticipate to be discharge home in 2-3 days. Pain Evaluation: Adequate Pain Control VTE Prophylaxis: Sub-Q Enoxaparin Resuscitation Status: DNR/DNI:Do Not Resuscitate/Intubate Attending Statement The patient was seen and examined together with Dr. Green on 06/15 and I agree with the history, exam and plan as outlined in the note above. Jacuqi Garcia DO Jun 15, 2017 10:48 Abad Bowling MD Jun 15, 2017 19:11
[2017-06-15] MEDS: 0.9% Sodium Chloride 1,000 ML IV SCH ×2 (13:20→22:33)
--- NOTE | 2017-06-15 16:16 | DRSVH ---
PROCEDURE: CT ANGIO CHEST PULMONARY EMBOLISM ([id number]) INDICATIONS: Dyspnea rule out PE TECHNIQUE: After the administration of intravenous contrast, 2 mm thick sections acquired from the pulmonary api maico to the posterior costophrenic angles. 3-dimensional maximum intensity projection (MIP) coronal a nd sagittal reformats were then acquired through the thorax. For radiation dose reduction, the follo wing was used: automated exposure control, adjustment of mA and/or kV according to patient size. COMPARISON: [facility], CT, CT ANGIO CHEST PE, 04/27/2017, 9:36. FINDINGS: Image quality: Excellent. Pulmonary arteries: Pulmonary arteries are normal in size, and demonstrate no intraluminal filling d efects to suggest central pulmonary embolism. Lungs and pleura: There is severe centrilobular emphysema. Superimposed air space opacities are prese nt within the dependent portions of the right upper lobe and the dependent portions of the right lowe r lobe. Consolidation is present at the base of the right lower lobe. No pleural effusion or pneumoth orax. Atelectasis or consolidation is also present in the dependent left lower lobe. These findings a re new when compared with the study dated 04/27/17. Mediastinum: Heart size is normal, without pericardial effusion. There is an enlarged precarinal lym ph node which measures 13 mm in diameter. Thoracic aorta is normal in caliber and enhancement. Dense atheromatous calcifications are present within the aortic arch. Esophagus is normal in caliber, witho ut hiatal hernia. Bones and chest wall: Patient is status post median sternotomy. Severe degenerative changes are pres ent throughout the scoliotic thoracic spine. No suspicious bony lesions. Ribs and thoracic spine brenda ear intact throughout. Thyroid gland is unremarkable. No axillary or supraclavicular adenopathy. Abdomen: Visualized upper abdominal solid organs appear normal in the early arterial phase of enhanc ement. IMPRESSION: 1. No acute pulmonary embolus. 2. Consolidative airspace opacities within the dependent portions of the right lung and at the left l reji base suspicious for aspiration/infection. 3. Severe centrilobular emphysema. 4. Mild mediastinal adenopathy which may be reactive or infectious in nature. Dictated by: Christa Field M.D. on 06/15/2017 at 16:08 Approved by: Christa Field M.D. on 06/15/2017 at 16:14
[2017-06-16] VITALS (9 sets, daily range): BP systolic 85–110; BP diastolic 44–62; PULSE 52–72; RESP 16–20; O2SAT 93–98
[2017-06-16] MEDS: Piperacillin-Tazo 3.375 Gm Inj 3.375 GM in Dextrose 5% Minibag Plus 50 ML IV SCH ×3 (01:21→18:04)
[2017-06-16 04:10] LABS: BASOPHILS % (AUTO) 0.2 % (0-3); EOSINOPHILS % (AUTO) 0.3 % (0-5); MONOCYTES % (AUTO) 6.9 % (4-12); Mean Corpuscular Hemoglobin 30.3 pg (27.0-35.0); Mean Corpuscular Volume 94.9 fL (81-100); NEUTROPHILS % (AUTO) 77.2 % (40-74); Platelet Count 134 bil/L (150-400)
[2017-06-16 05:03] LABS: Magnesium 1.8 mg/dL (1.6-2.6)
[2017-06-16] MEDS: 0.9% Sodium Chloride 1,000 ML IV SCH ×3 (05:04→18:22)
[2017-06-16] MEDS: 0.9% Sodium Chloride 500 ML IV ONE ×2 (05:10→05:53)
--- NOTE | 2017-06-16 12:58 | PCM.PNMED ---
Subjective Date of Service Jun 16, 2017 Subjective pt is still hypoxic, hypotensive, intermittently febrile, pt thinks he felt similar to yesterday pt was on Oxymask 6liters, switched to NC this AM Exam Vital Signs Vital Sign - Last Date Time Temp Pulse Resp B/P Pulse Ox O2 Delivery O2 Flow Rate FiO2 06/16/17 11:41 37.5 61 20 97/57 94 Nasal Cannula 3.00 Intake and Output 06/15/17 06/15/17 06/16/17 Cumulative From/Thru 15:00 23:00 07:00 06/15/17 04:35 - 06/16/17 06:58 Intake Total 520 ml 2362 ml 4882 ml Output Total 150 ml 350 ml 575 ml 1075 ml Balance -150 ml 170 ml 1787 ml 3807 ml Intake Oral 520 ml 400 ml 920 ml IV Total 1962 ml 3962 ml Output Urine Total 150 ml 350 ml 575 ml 1075 ml # Voids 1 1 # Bowel Movements 2 2 Exam NAD, comfortably laying down on the bed no JVD, MMM, no LAD RRR, nl s1, s2 no mrg diffuse crackles, no wheezing, S,ND,NT,normoactive BS+ warm, no edema, pulses 2/2 IVs and Medications Medications Reviewed: Medications were reviewed in detail Lab and Diagnostics Result Diagram: 06/16/17 0350 06/16/17 0350 X-Rays, CTs and MRIs PROCEDURE: X-RAY CHEST ONE VIEW, PORTABLE IMPRESSION: Opacification in the right midlung suspicious for pneumonia. Dictated by: Virginia Cummings MD, PhD on 06/15/2017 at 7:50 12-lead ECG ECG Interpretation: Rate 154 Supraventricular tachycardia Repolarization abnormality, prob rate related Time: 04:12 ECG Interpretation: Rate 95 Sinus or ectopic atrial rhythm Atrial premature complex Prolonged [place] interval Borderline ST depression, anterolateral leads Time: 05:39 Assessment & Plan 87 yo male with a history of CAD s/p single-vessel CABG, HTN, A-fib on chronic anticoagulation, diastolic CHF, and aortic stenosis s/p valve replacement presenting to the ED via EMS due to SOB onset prior to arrival and was admitted for possible pneumonia. acute, active #. Sepsis with elevated lactate; present admission; Patient presented with fever , tachynea, tachypnea, and hypotension; presumably secondary to pneumonia. Trend lactic acid; initial was 3.0, resolved. -Patient still mildly hypotensive but not tachycardic. will continue ns 125cc/hr -treat PNA as below, no other potential source: pt had hemorrhagic cystitis in last admission, UA unremarkable at this time #. Acute hypoxic respiratory failure; present on admission; Etiology due to pneumonia. CTA on admission obtained given hx of subsegmental PE in last admission, subtherapeutic INR, which ruled out PE. pt was initially on 100%NRB, then Oxymask, -O2 requirement further trending down, keep SpO2 target >95%, transition to NC today -monitor volume status closely, consider diuretics if pt hypoxia continues with pulmonary edema suspected #. Possible pneumonia; present admission; despite underwhelming labs, HCAP suspected based on initialy SIRS, CXR right middle lobe opacification and CT chest, recent hospitalization in ICU 2 months ago. Patient received Zosyn, Vanco , and Levaquin in the ER.Zosyn was continued. -continue Zosyn for now, consider deescalate based on clinical status -infectious w/u: respiratory pcr, MRSA swab, BCX, sputum CX so far ngtd -trends fever curve, PCT, wbc chronic, stable, resolved #. Reported diarrhea, present admission, Patient reports dark, loose stools for the last 2 days. Patient was on ciprofloxacin 500 mg for pneumonia 2 months ago. no further episode noted. #. Chronic A. fib on Coumadin; present admission; ongoing, INR1.29 on admission , ontinue with Warfarin per pharmacy with Lovenox bridging, held Carvedilol due to hypotension, monitor on telemetry #. Chronic diastolic heart failure with aortic valve replacement, Patient also has history of aortic stenosis with a bioprosthetic aortic valve. seemed euvolemic -Hold home carvedilol and lisinopril due to hypotension. -Continue on Warfarin per pharmacy. -Last ECHO in March 2017 showed Left ventricular systolic function is normal with the ejection fraction visually estimated to be 60-65% without focal wall motion abnormalities. The right ventricle is not well visualized but grossly appears to be at the upper limits of normal in size with right ventricular systolic function at the lower limits of normal and appears slightly less dynamic compared to the previous study. -ProBNP 303. #. Recent history of small subsegmental Pulmonary embolus, as above #. Hypertension, chronic. held home meds until hemodynamically more stable, #. Hyperlipidemia, chronic, stable. Resume home Lovastatin. #. History of BPH, chronic, stable. Resume home Tamsulosin. Dispo: prolonged, likely 2-3more days. DNR/DNI VTE Prophylaxis: Sub-Q Enoxaparin Resuscitation Status: DNR/DNI:Do Not Resuscitate/Intubate Time spent 35min Dipika Lopez MD Jun 16, 2017 12:58
[2017-06-16 20:06] LABS: INR 1.86 ratio
--- NOTE | 2017-06-16 21:19 | PCM.PHAPRO ---
Progress Date of Service: Jun 16, 2017 Warfarin dosing by pharmacy for 87 y/o man with atrial fibrillation, CAD, CHF, HTN, hx DVT and aortic valve replacement A: * The patient received a 4 mg warfarin dose yesterday * INR went from 1.29 yesterday to 1.86 today * A 0.61 increase in INR in one day is quite large * The patient is on therapeutic enoxaparin bridging P: * Give a 2 mg warfarin dose today * Continue to monitor INR, h/h Thank you. Pharmacy will continue to follow this patient. Radha Alberto Jun 16, 2017 21:19
[2017-06-17] MEDS: Piperacillin-Tazo 3.375 Gm Inj 3.375 GM in Dextrose 5% Minibag Plus 50 ML IV SCH ×3 (00:58→17:42)
[2017-06-17 03:39] VITALS: BP 120/65; PULSE 64; RESP 16; O2SAT 96
[2017-06-17] MEDS: 0.9% Sodium Chloride 1,000 ML IV SCH (05:04)
[2017-06-17 06:04] LABS: BASOPHILS % (AUTO) 0.1 % (0-3); EOSINOPHILS % (AUTO) 0.7 % (0-5); Mean Corpuscular Hemoglobin 31.1 pg (27.0-35.0); Mean Corpuscular Volume 97.9 fL (81-100); NEUTROPHILS % (AUTO) 70.5 % (40-74); Platelet Count 133 bil/L (150-400)
[2017-06-17 06:11] LABS: Magnesium 1.9 mg/dL (1.6-2.6)
[2017-06-17 06:19] LABS: INR 1.87 ratio
[2017-06-17 08:33] VITALS: BP 132/67; PULSE 55; RESP 18; O2SAT 92
[2017-06-17] MEDS ORDERED: Sodium Chloride NAS 45 mL Spray NASAL PRN (10:50)
[2017-06-17 10:57] VITALS: PULSE 59
--- NOTE | 2017-06-17 11:07 | PCM.PNMED ---
Subjective Date of Service Jun 17, 2017 Subjective Overnight, patient continues to require 2L NC for saturation in the mid 90S per oximeter. He is otherwise asymptomatic. No other event. Today, patient reports that he has been coughing up blood after they did the nasal swab for MRSA and viral PCR. He saved the bloody sputum in the tissues paper, which was tossed away by nursing staff by the time of examination. However, nursing staff denies noticing any blood in his tissue papers. They reports a mild epistaxis last night that resolved. Patient states that he did not have any cough prior to the nasal swab and now has had productive cough intermittently. He otherwise denies any symptoms, including SOB, CP, headache, nausea, vomiting, or fevers/chills. Exam Vital Signs Vital Sign - Last Date Time Temp Pulse Resp B/P Pulse Ox O2 Delivery O2 Flow Rate FiO2 06/17/17 08:33 36.7 55 18 132/67 92 Room Air 06/17/17 03:39 2.00 Intake and Output 06/16/17 06/16/17 06/17/17 Cumulative From/Thru 15:00 23:00 07:00 06/15/17 04:35 - 06/17/17 05:19 Intake Total 2131 ml 603 ml 7616 ml Output Total 1000 ml 500 ml 2575 ml Balance 1131 ml 103 ml 5041 ml Intake Oral 1240 ml 200 ml 2360 ml IV Total 891 ml 403 ml 5256 ml Output Urine Total 1000 ml 500 ml 2575 ml # Voids 1 # Bowel Movements 0 2 Exam General: Alert and oriented x 4, pleasant; no acute distress HEENT: NCAT, PERRLA, EOMI, mucosal membrane dry. Neck: No lymphadenopathy, no JVD. Cardiac: Regular rate and rhythm. III/ systolic murmur noted. Respiratory: Scattered rales, worse in the right lower lobe. Normal respiratory effort. Abdomen: Benign, soft, nondistended, nontender, normoactive bowel sound. Extremities: Trace edema in the lower extremities bilaterally. No clubbing or cyanosis. Psych: Appropriate mood and affect Neuro: Normal speech. Grossly intact; CN II through XII intact. IVs and Medications Medications Reviewed: Medications were reviewed in detail Lab and Diagnostics Result Diagram: 06/17/17 0535 06/17/1735 X-Rays, CTs and MRIs PROCEDURE: X-RAY CHEST ONE VIEW, PORTABLE IMPRESSION: Opacification in the right midlung suspicious for pneumonia. Dictated by: Virginia Cummings MD, PhD on 06/15/2017 at 7:50 12-lead ECG ECG Interpretation: Rate 154 Supraventricular tachycardia Repolarization abnormality, prob rate related Time: 04:12 ECG Interpretation: Rate 95 Sinus or ectopic atrial rhythm Atrial premature complex Prolonged PA interval Borderline ST depression, anterolateral leads Time: 05:39 Assessment & Plan 87 yo male with a history of CAD s/p single-vessel CABG, HTN, A-fib on chronic anticoagulation, diastolic CHF, and aortic stenosis s/p valve replacement presenting to the ED via EMS due to SOB onset prior to arrival and was admitted for possible pneumonia. #. Sepsis with elevated lactate; present on admission; resolved. Patient presented with fever, tachynea, tachypnea, and hypotension; presumably secondary to pneumonia. Trend lactic acid; initial was 3.0, resolved. -Patient has been mildly hypotensive but not tachycardic. Blood pressure improved to 132/67 this morning. Will discontinue ns 125cc/hr -treat PNA as below, no other potential source: pt had hemorrhagic cystitis in last admission, UA unremarkable at this time, except for some RBC. Will need outpatient follow up for the hematuria. #. Acute hypoxic respiratory failure; present on admission; Etiology due to pneumonia. -CTA on admission obtained given hx of subsegmental PE in last admission, subtherapeutic INR, which ruled out PE. -O2 requirement further trending down, keep SpO2 target >92%, wean off O2 as tolerated -monitor volume status closely, consider diuretics if pt hypoxia continues with pulmonary edema suspected #. Possible pneumonia; present admission; Despite underwhelming labs, HCAP suspected based on recent hospitalization and initial SIRS. - CXR right middle lobe opacification and CT chest, recent hospitalization in ICU 2 months ago. Patient received Zosyn, Vanco, and Levaquin in the ER. Zosyn was continued. - Another possible source of infection could be GI given ongoing diarrhea, which is improving. C. diff negative. - continue Zosyn for now. Day #3. Will consider switching to oral antibiotic tomorrow. - infectious workups: respiratory pcr, MRSA swab, BCX, sputum CX so far negative - trends fever curve and CBC #. Reported diarrhea, present admission, active. - Patient reports dark, loose stools for the last 2 days. Patient was on ciprofloxacin 500 mg for pneumonia 2 months ago. no further episode noted. - C. diff negative. - Guaiac negative. #. Chronic A. fib on Coumadin; present admission; ongoing. - INR1.29 on admission, Continue with Warfarin per pharmacy with Lovenox bridging. - held Carvedilol due to hypotension, monitor on telemetry #. Chronic diastolic heart failure with aortic valve replacement, Patient also has history of aortic stenosis with a bioprosthetic aortic valve. seemed euvolemic -Hold home carvedilol and lisinopril due to hypotension. -Continue on Warfarin per pharmacy. -Last ECHO in March 2017 showed Left ventricular systolic function is normal with the ejection fraction visually estimated to be 60-65% without focal wall motion abnormalities. The right ventricle is not well visualized but grossly appears to be at the upper limits of normal in size with right ventricular systolic function at the lower limits of normal and appears slightly less dynamic compared to the previous study. -ProBNP 303. #. Normocytic Anemia, likely chronic. - H/H trends down today, then up slightly. - Similar to previous values. - continue to monitor. #. Recent history of small subsegmental Pulmonary embolus. INR subtherapeutic. Continue Lovenox bridging until INR therapeutic. Warfarin per Pharmacy. #. Hypertension, chronic. Patient takes Carvedilol 3.125mg BID at home. home med was held due to hypotension. #. Hyperlipidemia, chronic, stable. Resume home Lovastatin. #. History of BPH, chronic, stable. Resume home Tamsulosin. Dispo: likely in 1-2 days. Patient refused SNF so we will have PT evaluation for discharge planning. Pain Evaluation: Adequate Pain Control VTE Prophylaxis: Sub-Q Enoxaparin Resuscitation Status: DNR/DNI:Do Not Resuscitate/Intubate Attending Statement The patient was seen and examined with staff. Agree with all attached documentation. Jacqui Garcia DO Jun 17, 2017 10:11 Cristiano Peerz MD Jun 18, 2017 16:46
[2017-06-17 11:15] VITALS: BP 120/73; PULSE 63; RESP 18; O2SAT 93
[2017-06-17 15:23] VITALS: BP 134/74; PULSE 64; RESP 18; O2SAT 94
[2017-06-17 20:57] VITALS: BP 136/66; PULSE 75; RESP 18; O2SAT 91
[2017-06-18] MEDS: Piperacillin-Tazo 3.375 Gm Inj 3.375 GM in Dextrose 5% Minibag Plus 50 ML IV SCH ×2 (00:49→08:05)
[2017-06-18 01:17] VITALS: BP 127/63; PULSE 54; RESP 18; O2SAT 93
[2017-06-18 05:00] VITALS: BP 121/52; PULSE 59; RESP 18; O2SAT 94
[2017-06-18 05:07] VITALS: PULSE 81
[2017-06-18 06:18] VITALS: PULSE 81
[2017-06-18 06:45] LABS: INR 1.88 ratio
[2017-06-18 08:00] VITALS: PULSE 65
[2017-06-18 08:06] LABS: Mean Corpuscular Hemoglobin 31.4 pg (27.0-35.0); Mean Corpuscular Volume 95.5 fL (81-100)
[2017-06-18 08:07] LABS: BASOPHILS % (AUTO) 0.2 % (0-3); MONOCYTES % (AUTO) 10.3 % (4-12); NEUTROPHILS % (AUTO) 67.2 % (40-74); Platelet Count 166 bil/L (150-400)
[2017-06-18 08:39] VITALS: BP 146/78; PULSE 63; RESP 19; O2SAT 92
--- NOTE | 2017-06-18 12:40 | PCM.DC.MED ---
Discharge Summary Date of Service Jun 18, 2017 Dates of Hospitalization Date of Hospital Admission Jun 15, 2017 at 07:36 Date of Discharge: Jun 18, 2017 Providers: Admitting Physician: Abad Bowling MD Primary Care Physician: Ward Avila MD Attending Physician: Juan J Hurd DO Diagnosis at Time of Discharge Diagnosis at Time of Discharge #. Sepsis with elevated lactate; present on admission; resolved. #. Acute hypoxic respiratory failure; present on admission; Etiology due to pneumonia. Resolved #. Community-acquired Pneumonia; present admission; treated and improving #. Reported diarrhea, present admission, resolving #. Chronic A. fib on Coumadin; present admission; ongoing. #. Chronic diastolic heart failure with aortic valve replacement, #. Normocytic Anemia, likely chronic. #. Recent history of small subsegmental Pulmonary embolus. INR subtherapeutic on admission. #. Hypertension, chronic. #. Hyperlipidemia, chronic, stable. #. History of BPH, chronic, stable. Procedures XRay, CTs & MRIs PROCEDURE: X-RAY CHEST ONE VIEW, PORTABLE IMPRESSION: Opacification in the right midlung suspicious for pneumonia. Dictated by: Virginia Cummings MD, PhD on 06/15/2017 at 7:50 ECG 12 Lead ECG Interpretation: Rate 154 Supraventricular tachycardia Repolarization abnormality, prob rate related Time: 04:12 ECG Interpretation: Rate 95 Sinus or ectopic atrial rhythm Atrial premature complex Prolonged NH interval Borderline ST depression, anterolateral leads Time: 05:39 Brief History As per admission history of present illness by admitting physician "Yasir Gu is an 87 yo male with a history of CAD s/p single-vessel CABG, HTN, A- fib on chronic anticoagulation, diastolic CHF, and aortic stenosis s/p valve replacement presenting to the ED via EMS due to SOB onset prior to arrival. Patient reports that he was in his usual state of health until early this morning. Patient states he had some strawberries and crackers before bed last night, and he woke up with "feeling sick in the stomach." He then gave himself a cup of hot water and baking soda, which is his go-to remedy for any stomach upset. However, after drinking it, he developed severe rigors and shortness of breathe. He was having some nausea en route to the ER, but has not had any nausea or vomiting since. He admits to loose, dark stool x 2 days. He reports that he has been feeling well since the last hospitalization for sepsis due to complicated UTI and pulmonary embolism. Currently, he reports to feel well and denies any SOB, cough CP, orthopnea, dizziness, headache, abdominal pain, or fevers. Per ER report, en route albuterol was given for the pt's wheezing. The patient' s SaO2 % never shereen about 92% while on 15 L of O2. 4 MG of Zofran was given for nausea as well as 324 MG of aspirin just prior to arrival in the ED. Upon arrival, temp 38.6, P 130, RR 30, BP 132/95, Pulse Ox 88% at room air. His BP soon dropped down to 82/50. Patient was put on non-rebreather O2 mask and his pulse ox improved to 96%. CBC and CMP both normal. Lactic acid elevated at 3.0. Procalcitonin 0.05. Urine negative for infection. CXR shows opacification in the right midlung suspicious for pneumonia. Antibiotic initiated with Zosyn and Vanco in the ER with 1L of NS. " Hospital Course #. Sepsis with elevated lactate; present on admission; resolved. Patient presented with fever, tachynea, tachypnea, and hypotension; presumably secondary to pneumonia. Trend lactic acid; initial was 3.0, resolved. -Patient has been mildly hypotensive but not tachycardic. Blood pressure improved promptly with intravenous hydration and treatment. -treated PNA as below, no other potential source. #. Acute hypoxic respiratory failure; present on admission; Etiology due to pneumonia. -CTA on admission obtained given hx of subsegmental PE in last admission, subtherapeutic INR, which ruled out PE. -O2 requirement further trending down, keep SpO2 target >92%, wean off O2 as tolerated -monitor volume status closely, consider diuretics if pt hypoxia continues with pulmonary edema suspected #. Community-acquired pneumonia present admission; Despite underwhelming labs, HCAP suspected based on recent hospitalization and initial SIRS. - CXR right middle lobe opacification and CT chest, recent hospitalization in ICU 2 months ago. Patient received Zosyn, Vanco, and Levaquin in the ER. Zosyn was continued, initially - Another possible source of infection could be GI given ongoing diarrhea, which is improving. C. diff negative. - continued Zosyn through hospital stay , with negative culture results patient was transitioned to oral therapy , Augmentin for additional 7 days to complete course of therapy . #. Reported diarrhea, present admission, active. - Patient reported dark, loose stools for the 2 days prior to admission. . Patient had been on ciprofloxacin 500 mg for pneumonia 2 months ago. no further episode noted. - C. diff negative. - Guaiac negative. - resolved at TIME of discharge #. Chronic A. fib on Coumadin; present admission; ongoing. - INR1.29 on admission, Continue with Warfarin per pharmacy with Lovenox bridging. - Held Carvedilol due to hypotension, monitor on telemetry - Increased warfarin therapy to 4 mg daily given subtherapeutic levels on admission - Patient discharged home with plan to follow-up in 3-5 days primary care physician for INR check and continued adjustment of warfarin therapy. #. Chronic diastolic heart failure with aortic valve replacement, Patient also has history of aortic stenosis with a bioprosthetic aortic valve. seemed euvolemic -Held home carvedilol and lisinopril due to hypotension, restarted at time of discharge -Continued on Warfarin per pharmacy. -Last ECHO in March 2017 showed Left ventricular systolic function is normal with the ejection fraction visually estimated to be 60-65% without focal wall motion abnormalities. The right ventricle is not well visualized but grossly appears to be at the upper limits of normal in size with right ventricular systolic function at the lower limits of normal and appears slightly less dynamic compared to the previous study. -ProBNP 303. #. Normocytic Anemia, likely chronic. Stable throughout hospital stay #. Recent history of small subsegmental Pulmonary embolus. INR subtherapeutic. Continued Lovenox bridging . INR 1.89 at time of discharge so Lovenox therapy discontinued with increased dosage of warfarin as noted above. #. Hypertension, chronic. Patient takes Carvedilol 3.125mg BID at home. home med was held due to hypotension. #. Hyperlipidemia, chronic, stable. Resumed home Lovastatin. #. History of BPH, chronic, stable. Resumed home Tamsulosin. Exam Vital Signs (Last) Date Time Temp Pulse Resp B/P Pulse Ox O2 Delivery O2 Flow Rate FiO2 06/18/17 08:39 36.5 63 19 146/78 92 Room Air 06/17/17 03:39 2.00 Test 06/15/17 00:00 06/15/17 04:21 06/15/17 04:45 06/15/17 14:30 Urine Legionella pneumophilia Ag Negative (Negative) Troponin T 0.010ug/L (0.0-0.011) Pro-B-Type Natriuretic Peptide 303.4pg/mL (0-486) Lipase 49U/L (13-60) Procalcitonin 0.05ng/mL (0.00-0.08) Urine Color Yellow (YELLOW) Urine Appearance Clear (CLEAR,HAZY) Urine pH 6.0 (5.0-8.0) Urine Specific [place] 1.025 (1.003-1.035) Urine Protein 30mg/dL (NEG,TRACE) Urine Glucose (UA) Negativemg/dL (NEGATIVE) Urine Ketones Negativemg/dL (NEGATIVE) Urine Occult Blood Moderate (NEGATIVE) Urine Nitrite Negative (NEGATIVE) Urine Bilirubin Negative (NEGATIVE) Urine Urobilinogen Normalmg/dL (NORMAL) Urine Leukocyte Esterase Negative (NEGATIVE) Urine RBC >50/hpf (0-2) Urine WBC 0-5/hpf (0-5) Urine Epithelial Cells Moderate/hpf (NONE-MOD) Urine Crystals None seen (NONE SEEN) Urine Bacteria None/hpf (NONE-FEW) Urine Hyaline Casts None/lpf (NONE) Urine Granular Casts None seen (NONE SEEN) Urine Waxy Casts None seen (NONE SEEN) Urine Red Blood Cell Casts None seen (NONE SEEN) Urine White Blood Cell Casts None seen (NONE SEEN) Urine Mucus None seen (None Seen) Urine Trichomonas None seen (NONE SEEN) Urine Yeast None (NONE SEEN) Urinalysis Comment None Urine Culture Reflexed Not indicated Lactic Acid Level 2.0mmol/L (0.4-2.0) Test 06/15/17 18:59 06/17/17 05:35 06/18/17 05:43 Hold Jarvis Top Tube Received (Received) Phosphorus Level 2.0mg/dL (2.5-4.9) Magnesium Level 1.9mg/dL (1.6-2.6) Total Bilirubin 1.1mg/dL (0.0-1.2) Aspartate Amino Transf (AST/SGOT) 9U/L (0-50) Alanine Aminotransferase (ALT/SGPT) 5U/L (0-44) Alkaline Phosphatase 59U/L (25-160) Total Protein 4.8g/dL (6.4-8.4) Albumin 2.6g/dL (3.4-5.0) White Blood Count 5.6th/mm3 (3.8-10.1) Red Blood Count 3.76mil/mm3 (4.40-5.80) Hemoglobin 11.8g/dL (13.8-17.2) Hematocrit 35.9% (41.0-50.0) Mean Corpuscular Volume 95.5fL (81-100) Mean Corpuscular Hemoglobin 31.4pg (27.0-35.0) Mean Corpuscular Hemoglobin Concent 32.9% (32.0-37.0) Red Cell Distribution Width 13.8% (12.3-15.4) Platelet Count 166bil/L (150-400) Neutrophils (%) (Auto) 67.2% (40-74) Lymphocytes (%) (Auto) 20.1% (14-46) Monocytes (%) (Auto) 10.3% (4-12) Eosinophils (%) (Auto) 2.0% (0-5) Basophils (%) (Auto) 0.2% (0-3) Prothrombin Time 20.4sec (8.1-12.5) Prothromb Time International Ratio 1.88ratio Sodium Level 140mEq/L (134-144) Potassium Level 3.3mEq/L (3.5-5.2) Chloride Level 104mEq/L (97-108) Carbon Dioxide Level 22mmol/L (18-29) Blood Urea Nitrogen 7mg/dL (8-27) Creatinine 0.70mg/dL (0.76-1.27) Estimat Glomerular Filtration Rate 114mL/min (>59) Glucose Level 104mg/dL (60-99) Calcium Level 7.9mg/dL (8.5-10.1) General: Alert, Oriented X3, Cooperative, No Acute Distress Mouth: Mucous Membr Moist/[place] Chest & Lungs: Coarse breath sounds, Other (good airflow noted in all lung neri) Cardiovascular: Exam Unremarkable Extremities: No cyanosis/clubbing/edma bilat Neurological: Grossly Neurologically Intact Discharge Medications Discharge Medications Amoxicillin/Clav K 875-125 mg (Augmentin 875-125 mg) 1 Each Tablet 1 TABLET PO BID Prescribed by: JUAN J HURD DO Carvedilol (Carvedilol) 3.125 Mg Tablet 3.125 MG PO BID (Reported) Lisinopril (Lisinopril) 20 Mg Tablet 20 MG PO DAILY (Reported) Lovastatin (Lovastatin) 40 Mg Tablet 40 MG PO HS (Reported) Tamsulosin ER (Tamsulosin ER) 0.4 Mg Cap.er.24h 0.8 MG PO DAILY (Reported) Warfarin Sodium (Warfarin Sodium) 4 Mg Tablet 4 MG PO DAILY Prescribed by: JUAN J HURD DO Followup Plan Disposition: Home Follow-up plan You are being ischarged home, with oral antibiotic therapy to be completed as prescribed for 1 additional week. On admission your INR level was below therapeutic level, is is particularly concerning because of your recent pulmonary embolus - Prescribed a higher dosage of warfarin therapy and discharge - It is extremely important that you follow-up with primary care doctor in next 3-5 days to recheck INR and make sure changes in dosages achieving adequate level of anticoagulation. Discharge Diet: No restrictions, Heart Healthy Discharge Activity: No restrictions Follow-up Provider: Ward Avila MD Follow-up with PCP in: 1 week Time spent 45 minutes copies to: Ward Avila MD Vital Signs Vital Sign - Last Date Time Temp Pulse Resp B/P Pulse Ox O2 Delivery O2 Flow Rate FiO2 06/18/17 08:39 36.5 63 19 146/78 92 Room Air 06/17/17 03:39 2.00 Intake and Output 06/17/17 06/17/17 06/18/17 Cumulative From/Thru 15:00 23:00 07:00 06/15/17 04:35 - 06/18/17 05:59 Intake Total 1234 ml 400 ml 9250 ml Output Total 600 ml 1450 ml 4625 ml Balance 634 ml -1050 ml 4625 ml Intake Oral 820 ml 400 ml 3580 ml IV Total 414 ml 5670 ml Output Urine Total 600 ml 1450 ml 4625 ml # Voids 1 # Bowel Movements 1 3 Lab and Diagnostics Result Diagram: 06/18/17 0543 06/18/17 0543 Juan J Hurd DO Jun 18, 2017 12:40
[2017-06-18] MEDS ORDERED: AMOX-366 PO (12:44)
[2017-06-18] MEDS ORDERED: WARF4TAB6 PO (12:44)
--- NOTE | 2017-06-18 12:45 | PCM.DIMED ---
Discharge Instructions Date of Service Jun 18, 2017 Dates of Hospitalization Jun 15, 2017 at 07:36 Discharge Diagnosis Discharge Diagnosis #. Sepsis with elevated lactate; present on admission; resolved. #. Acute hypoxic respiratory failure; present on admission; Etiology due to pneumonia. Resolved #. Community-acquired Pneumonia; present admission; treated and improving #. Reported diarrhea, present admission, resolving #. Chronic A. fib on Coumadin; present admission; ongoing. #. Chronic diastolic heart failure with aortic valve replacement, #. Normocytic Anemia, likely chronic. #. Recent history of small subsegmental Pulmonary embolus. INR subtherapeutic on admission. #. Hypertension, chronic. #. Hyperlipidemia, chronic, stable. #. History of BPH, chronic, stable. Diet Discharge Diet: No restrictions, Heart Healthy Activity Discharge Activity: No restrictions Call your provider Call your provider for: Fever or Chills, Shortness of breath, Chest pain, Excessive diarrhea Patient Instructions Patient Instructions See below Follow-up plan You are being ischarged home, with oral antibiotic therapy to be completed as prescribed for 1 additional week. On admission your INR level was below therapeutic level, is is particularly concerning because of your recent pulmonary embolus - Prescribed a higher dosage of warfarin therapy and discharge - It is extremely important that you follow-up with primary care doctor in next 3-5 days to recheck INR and make sure changes in dosages achieving adequate level of anticoagulation. Follow-up Provider: Ward Avila MD Follow-up with PCP in: 1 week Juan J Hurd DO Jun 18, 2017 12:45
== END 2017-06-18 14:25 | disposition home or self-care (01) | DRG 871 ==
LOC: SED 04:08 → PCC 07:36 → MPC 06-17 18:35
PROVIDERS: ADMIT Hospitalist; ATTEND Family Medicine
DX: A41.9 Sepsis, unspecified organism (principal); J18.9 Pneumonia, unspecified organism; J96.01 Acute respiratory failure with hypoxia; I50.32 Chronic diastolic (congestive) heart failure; Z79.01 Long term (current) use of anticoagulants; Z86.718 Personal history of other venous thrombosis and embolism; Z86.711 Personal history of pulmonary embolism; Z95.2 Presence of prosthetic heart valve; Z87.891 Personal history of nicotine dependence; Z95.1 Presence of aortocoronary bypass graft; I48.2 Chronic atrial fibrillation; I35.0 Nonrheumatic aortic (valve) stenosis; E78.5 Hyperlipidemia, unspecified; N40.0 Benign prostatic hyperplasia without lower urinary tract symptoms; Z66 Do not resuscitate; R19.7 Diarrhea, unspecified; R79.1 Abnormal coagulation profile; R04.0 Epistaxis